=== PATIENT | male | born 1965 | race Caucasian/White ===

== ENCOUNTER 2017-11-05 08:02 | Emergency (ER) | payer SELFPAY ==
[~2017-11-05] VITALS: Ht 180.3 cm; Wt 94.0 kg
[2017-11-05 08:04] VITALS: Ht 180.3 cm; Wt 94.0 kg
[2017-11-05] MEDS ORDERED: HYDROmorphone INJ 2 MG/ML SYR/VIAL IM STA (08:28)
[2017-11-05] MEDS ORDERED: ONDANSETRON 4MG OD TAB PO STA (08:28)
[2017-11-05] MEDS ORDERED: KETOROLAC TROMETHAMINE 60 MG/2 ML VIAL IM STA (08:28)
[2017-11-05] MEDS ORDERED: DEXAMETHASONE INJ 10 MG in SYRINGE 0 ML IM STA (08:28)
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
--- NOTE | 2017-11-05 08:41 | EMERGENCY ROOM VISIT NOTE ---
ED Visit Note First contact with patient: 08:06 Resident Physician Supervision Note: I interviewed and examined the patient. Discussed with Dr. Martinez and agree with findings and plan as documented in the note. Documented By: Forrest Valenzuela Allergies Coded Allergies: No Known Allergies (Unverified , 04/25/15) Vital Signs Date Time Temp Pulse Resp B/P (MAP) Pulse Ox O2 Delivery O2 Flow Rate FiO2 11/05/17 08:04 36.9 87 18 151/93 97 Room Air Departure Information Referrals No Doctor, Assigned (PCP) Patient Instructions My [facility]
[2017-11-05] MEDS ORDERED: LIDODERM (LIDOCAINE) PATCH 5% TD SCH (09:00)
--- NOTE | 2017-11-05 09:04 | DIAGNOSTIC IMAGING REPORT ---
LUMBAR SPINE 5 VIEWS HISTORY: Pt c/o low back pain COMPARISON: None. FINDINGS: There is no fracture. No subluxation. Disc spaces are preserved. Tiny endplate osteophytes. Mild facet degenerative changes within the lower lumbar spine. IMPRESSION: No fracture or subluxation within the lumbar spine. Mild facet osteoarthritis within the lower lumbar spine. Electronically signed by: Tramaine Hunt M.D. 11/05/2017 9:03 AM Dictated Date/Time: 11/05/2017 9:02 AM
[2017-11-05] MEDS ORDERED: HYDROmorphone INJ 1 MG/ML SYR IV STA (09:28)
[2017-11-05] MEDS ORDERED: ACET-1256 PO (09:33)
[2017-11-05] MEDS ORDERED: HYDROmorphone INJ 1 MG/ML SYR IM STA (09:49)
[2017-11-05] MEDS ORDERED: OXYC-57 PO (10:30)
[2017-11-05 10:40] VITALS: BP 141/88; PULSE 87; TEMP 36.9; O2SAT 97
[2017-11-06] MEDS ORDERED: LIDODERM (LIDOCAINE) PATCH 5% TD SCH (09:00)
== END 2017-11-05 10:42 | disposition home or self-care (01) ==
LOC: C.EDB 08:04
DX: S39.012A Strain of muscle, fascia and tendon of lower back, initial encounter (principal); X50.1XXA Overexertion from prolonged static or awkward postures, initial encounter

== ENCOUNTER 2021-04-04 20:27 | Inpatient (IN) ==
[2021-04-04] MEDS ORDERED: FAMOTIDINE 20MG/5ML IV PUSH IV STA (21:01)
[2021-04-04] MEDS ORDERED: PANTOprazole 40 MG in SYRINGE 0 ML IV ONE (21:01)
[2021-04-04] MEDS ORDERED: SODIUM CHLORIDE 0.9% 1000ML 1,000 ML IV ONE (21:01)
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
[2021-04-04 21:32] LABS: Albumin Level 2.4 gm/dl (3.4-5.0); BUN Creatinine Ratio 11.5 (10-20); Calcium 8.4 mg/dl (8.5-10.1); Creatinine Clr Calc Pharmacy 80.1 ml/min; Est GFR (African American) 75.9 ml/min; Est GFR (Non-African American) 65.5 ml/min; Potassium 3.7 mmol/L (3.5-5.1)
[2021-04-04 21:39] LABS: Albumin Globulin Ratio 0.6 (0.9-2); Bilirubin,Total 0.2 mg/dl (0.2-1); C Reactive Protein 8.04 mg/dl (0-0.29); Globulin 4.1 gm/dl (2.5-4.0); Total Protein 6.5 gm/dl (6.4-8.2)
[2021-04-04 22:33] LABS: Appearance Urine Clear (Clear); Bilirubin Urine Negative (Negative); Blood Urine Negative (Negative); Color Urine Yellow; Glucose Urine UA Negative (Negative); Ketones Urine Negative (Negative); Leukocyte Esterase Urine Negative (Negative); Nitrite Urine Negative (Negative); Protein Urine Negative (Negative); Specific Gravity Urine 1.017 (1.000-1.030); Urobilinogen Urine Negative (Negative); pH Urine 5.5 (4.5-7.5)
[2021-04-04 22:37] LABS: Basophils # (auto) 0.04 K/uL (0-0.2); Basophils % (auto) 0.6 %; Eosinophils # (auto) 0.21 K/uL (0-0.5); Eosinophils % (auto) 3.1 %; Hematocrit (blood only) 24.4 % (42-52); Hemoglobin 7.4 g/dL (14.0-18.0); Immature Granulocytes # (auto) 0.03 K/uL (0.00-0.02); Immature Granulocytes % (auto) 0.4 %; Lymphocytes # (auto) 1.14 K/uL (1.2-3.4); Lymphocytes % (auto) 16.6 %; Mean Corpuscular Hemoglobin 23.9 pg (25-34); Mean Corpuscular Hgb Conc 30.3 g/dL (32-36); Mean Corpuscular Volume 78.7 fL (80-100); Mean Platelet Volume 9.3 fL (7.4-10.4); Monocytes # (auto) 0.56 K/uL (0.11-0.59); Monocytes % (auto) 8.2 %; Neutrophils # (auto) 4.89 K/uL (1.4-6.5); Neutrophils % (auto) 71.1 %; Platelet Count 634 K/uL (130-400); RDW Coefficient of Variation 15.6 % (11.5-14.5); RDW Standard Deviation 45.4 fL (36.4-46.3); White Blood Count 6.87 K/uL (4.8-10.8)
[2021-04-04] MEDS ORDERED: PIPERACILLIN/TAZOBACTAM 4.5 GM/120 ML BAG IV ONE (22:49)
[2021-04-04] MEDS ORDERED: PIPERACILL/TAZOBAC CONSULT ACTIVE PRN (22:49)
[2021-04-04 22:50] LABS: Reticulocytes # 0.06 10^6/uL (0.02-0.10)
[2021-04-04 22:56] LABS: Partial Thromboplastin Time 27.3 Seconds (21.0-31.0)
[2021-04-04 22:58] LABS: Hypochromasia Present; Polychromasia 1+
[2021-04-04] MEDS ORDERED: HYDROmorphone INJ 0.5 MG/0.5 ML SYR IV STA (23:35)
[2021-04-04] MEDS ORDERED: methylPREDNISolone 125 MG/2 ML VIAL IV STA (23:55)
[2021-04-05] MEDS ORDERED: ACETAMINOPHEN 325 MG TAB PO PRN (00:47)
[2021-04-05] MEDS ORDERED: NITROGLYCERIN SL 0.4 MG/TAB TAB SL PRN (00:47)
[2021-04-05] MEDS ORDERED: SODIUM CHLORIDE 0.9% 250 ML IV PRN (00:47)
[2021-04-05] MEDS ORDERED: HYDROmorphone INJ 0.5 MG/0.5 ML SYR IV PRN (00:47)
[2021-04-05] MEDS ORDERED: ONDANSETRON INJ 2 MG/ML 2 ML VIAL IV PRN (00:47)
[2021-04-05] MEDS ORDERED: PANTOprazole 40 MG in SYRINGE 0 ML IV ONE (01:15)
[2021-04-05] MEDS: PANTOprazole 40 MG in DEXTROSE 5% 100 ML IV SCH ×4 (01:25→14:13)
[2021-04-05] MEDS: SODIUM CHLORIDE 0.9% 1000ML 1,000 ML IV SCH ×2 (01:25→14:16)
--- NOTE | 2021-04-05 02:43 | History and Physical Report ---
DATE OF ADMISSION: 04/05/2021. CHIEF COMPLAINT: Left-sided headache and GI bleed. HISTORY OF PRESENT ILLNESS: A 55-year-old male with past medical history significant for celiac artery dissection, who presents with anemia, possible melena, and left-sided headache. The patient is having left temporal headache for the last 2 weeks, severe pain. He was in the ER on 03/29/2021. At that time, CT of the head was okay. He followed with the PCP on 04/02/2021. Labs were done, the ESR was highly elevated, but his hemoglobin was trending down. He was taking a lot of NSAIDs at home. His hemoglobin was 8.9 on 03/29/2021, today is 7.4. So PCP sent him to the hospital for GI bleed. His Hemoccult is positive. The patient says he had black stools a couple of days ago. He is currently constipated. He has some abdominal discomfort from constipation. No nausea. Somewhat nauseous the other day, but currently no nausea or vomiting. No chest pain. He is getting some shortness of breath on exertion. Still has severe left temporal headache about 9/10 in severity. Denies any blurred vision or vision problem. The pain is also radiating to his left jaw. He saw a dentist and examination was okay and he also saw emergent care for left earache and except for wax nothing was found. Appetite is down for the last few days. No dysphagia, no rash. Normal bladder movements. Currently resting comfortably and hemodynamically stable. ALLERGIES: No known drug allergies. PAST MEDICAL HISTORY: As mentioned above. PAST SURGICAL HISTORY: Removal of deep support implant. MEDICATIONS: Currently on Tylenol as needed. FAMILY HISTORY: Significant for no family history on file. SOCIAL HISTORY: Former smoker. REVIEW OF SYSTEMS: As per HPI. Rest of the review of systems is negative. PHYSICAL EXAMINATION: GENERAL: The patient is obese, not in acute distress. VITAL SIGNS: Temperature 36.5, pulse 96, respiratory rate 14, blood pressure 112/84, oxygen 97% on room air. HEENT: Pupils equal, round and reactive to light. Oral mucosa moist. NECK: No JVD. No neck masses. CARDIOVASCULAR: S1 and S2 heard. Regular rate and rhythm. No murmur, no gallop. RESPIRATORY SYSTEM: Normal AP diameter. No accessory muscle use. No wheezing, no crackles. ABDOMEN: Soft, bowel sounds present, nontender, no distention. CENTRAL NERVOUS SYSTEM: Cranial nerves II-XII grossly intact, nonfocal. EXTREMITIES: No edema, no erythema. LABORATORY DATA: WBC 6.8, hemoglobin 7.4, hematocrit 24.4, platelets 634. ESR 93. PT 10, INR 1, APTT 27.3. Sodium 139, potassium 3.7, chloride 106, bicarb 27, BUN 14, creatinine 1.24, serum glucose 112, calcium 8.4, total bilirubin 0.2, AST 26, ALT 26, alkaline phosphatase 103. C-reactive protein 8. Lipase 100. Urinalysis negative. SARS-CoV-2 PCR negative. IMAGING DATA: Chest x-ray, no acute findings. ASSESSMENT AND PLAN: This is a 55-year-old male who presents with gastrointestinal bleed. 1. Gastrointestinal bleed: Had melena a couple of days ago, hemoglobin 7.4. It was 8.7 on 03/29/2021. His hemoglobin was 8.5 on 04/02/2021. Taking a lot of NSAIDs because of the headache. Was started on Protonix drip. ER started on IV antibiotics, will continue, and IV fluids. Continue Protonix drip. Blood consent obtained by the ER. Will transfuse 2 units of PRBCs. Keep him n.p.o. and consult GI in the a.m. Monitor in the tele floor. H and H q. 6 hours. 2. Severe headache, left temporal headache: Tenderness on palpation and ESR is elevated at 93. Suspicion for giant cell arteritis. Will consult neurology in a.m. CT of the head done on 03/29/2021 was okay. No complaints of any vision problems. Will empirically give one dose of Solu-Medrol for suspicion for giant cell enteritis,as there is no obvious active bleeding at this time. So closely monitor in the tele floor as the patient is getting steroid. Further steroids as per neurology and after GI evaluation in the a.m. 3. Deep venous thrombosis prophylaxis: Sequential compression devices. DISPOSITION: Closely monitor in the tele floor. Level I full code. Expect to discharge home and follow with family doctor. Job ID: [id number] [facility] CENTERAnkita
[2021-04-05] MEDS ORDERED: FUROSEMIDE 40 MG/4 ML VIAL IV ONE (04:00)
[2021-04-05] MEDS: PIPERACILLIN/TAZOBACTAM 3.375 GM in DEXTROSE 5% 100 ML IV SCH ×2 (05:57→11:09)
--- NOTE | 2021-04-05 07:50 | XRay Report ---
SINGLE VIEW CHEST CLINICAL HISTORY: Dyspnea. FINDINGS: An AP, portable, upright chest radiograph is compared to study dated 03/29/2021. The heart i s top normal for projection. The lungs and pleural spaces are clear. No pneumothorax is seen. Chronic deformity is noted in the left-sided ribs. IMPRESSION: No active disease in the chest. ACT 112: Negative or not required by law. Electronically signed by: Riaz Arguelles M.D. 04/05/2021 7:48 AM
[2021-04-05 07:56] LABS: Basophils # (auto) 0.02 K/uL (0-0.2); Basophils % (auto) 0.3 %; Eosinophils # (auto) 0.01 K/uL (0-0.5); Eosinophils % (auto) 0.1 %; Hematocrit (blood only) 29.5 % (42-52); Hemoglobin 9.3 g/dL (14.0-18.0); Immature Granulocytes # (auto) 0.02 K/uL (0.00-0.02); Immature Granulocytes % (auto) 0.3 %; Lymphocytes # (auto) 0.69 K/uL (1.2-3.4); Lymphocytes % (auto) 10.1 %; Mean Corpuscular Hemoglobin 24.9 pg (25-34); Mean Corpuscular Hgb Conc 31.5 g/dL (32-36); Mean Corpuscular Volume 79.1 fL (80-100); Mean Platelet Volume 9.9 fL (7.4-10.4); Monocytes # (auto) 0.13 K/uL (0.11-0.59); Monocytes % (auto) 1.9 %; Neutrophils # (auto) 5.99 K/uL (1.4-6.5); Neutrophils % (auto) 87.3 %; Platelet Count 541 K/uL (130-400); RDW Coefficient of Variation 16.1 % (11.5-14.5); RDW Standard Deviation 46.4 fL (36.4-46.3); Red Blood Count 3.73 M/uL (4.7-6.1); White Blood Count 6.86 K/uL (4.8-10.8)
[2021-04-05 08:13] LABS: BUN Creatinine Ratio 11.9 (10-20); Creatinine Clr Calc Pharmacy 77.9 ml/min; Est GFR (African American) 74.5 ml/min; Est GFR (Non-African American) 64.2 ml/min; Magnesium 1.8 mg/dl (1.8-2.4)
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
[2021-04-05 11:04] LABS: Hematocrit (blood only) 30.1 % (42-52); Hemoglobin 9.5 g/dL (14.0-18.0)
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
[2021-04-05] MEDS ORDERED: PROPOFOL IV EMULSION 10 MG/ML 20 ML VIAL IV ONE (12:53)
[2021-04-05] MEDS ORDERED: LIDOCAINE 2% 2 ML VIAL/AMP(20MG/ML) INFIL ONE (12:53)
[2021-04-05] MEDS ORDERED: fentaNYL citrate 100 MCG/2 ML VIAL ONE (12:56)
[2021-04-05] MEDS ORDERED: ONDANSETRON INJ 2 MG/ML 2 ML VIAL ONE (13:20)
--- NOTE | 2021-04-05 13:40 | GI REPORT ---
Patient Name: Migel Chirinos Procedure Date: 04/05/2021 11:53 AM Date of : 1965 Admit Type: Inpatient Age: 55 Gender: Male Attending MD: Laron Herring MD Procedure: Upper GI endoscopy Providers: Laron Herring MD Referring MD: Jill Rose Md Indications: Unexplained iron deficiency anemia, Melena Medicines: Monitored Anesthesia Care Complications: No immediate complications. Estimated blood loss: None. Estimated Blood Loss: Estimated blood loss: none. Procedure: Pre-Anesthesia Assessment: - Prior Anticoagulants: The patient has taken no previous anticoagulant or antiplatelet agents. - Prior Aspirin/ NSAID therapy: The patient has taken previous NSAID medication, last dose was 1 day prior to procedure. - ASA Grade Assessment: III - A patient with severe systemic disease. After obtaining informed consent, the endoscope was passed under direct vision. Throughout the procedure, the patient's blood pressure, pulse, and oxygen saturations were monitored continuously. The Endoscope was introduced through the mouth, and advanced to the third part of duodenum. The upper GI endoscopy was accomplished without difficulty. The patient tolerated the procedure well. Findings: The examined esophagus was normal. Few non-bleeding cratered and linear gastric ulcers with no stigmata of bleeding were found in the stomach. Biopsies were taken with a cold forceps for Helicobacter pylori testing. Estimated blood loss: none. Diffuse moderate mucosal variance characterized by ulceration and oozing/active bleeding was found in the second portion of the duodenum and in the third portion of the duodenum. Area was successfully injected with 6 mL of a 1:10,000 solution of epinephrine for hemostasis. Coagulation for hemostasis using bipolar probe was successful. Biopsies were taken with a cold forceps for histology and to exclude malignancy. Estimated blood loss: none. Impression: - Normal esophagus. - Non-bleeding gastric ulcers with no stigmata of bleeding. Biopsied. - Mucosal variant in the duodenum. Injected. Treated with bipolar cautery. Biopsied. Recommendation: - [facility]. - Clear liquid diet today. if stable tomorrow can advance as tolerated -strict NSAID avoidance -obtain CT enterography to further evaluate small intestine for possible malignancy --trend H/H --strict alcohol cessation ---supportive care Laron Herring MD 04/05/2021 1:39:36 PM This report has been signed electronically. Note Initiated On: 04/05/2021 11:53 AM Number of Addenda: 0 I attest to the content of the Intraoperative Record and orders documented therein, exceptions below {[id number]}
--- NOTE | 2021-04-05 14:30 | Anesthesiology Progress Note ---
Date of Service April 05, 2021 Anesthesia Post Procedure Vital Signs Vital Signs: Temp Pulse Pulse Resp BP BP Pulse Ox 04/05/21 13:54 83 16 118/73 95 04/05/21 13:39 84 16 111/70 94 04/05/21 13:24 36.5 C 94 H 16 105/67 94 04/05/21 11:42 36.5 C 87 16 114/77 96 04/05/21 08:00 82 04/05/21 07:42 36.9 C 84 21 98/59 L 98 04/05/21 05:54 37.0 C 88 16 114/68 96 04/05/21 05:05 36.9 C 82 20 119/69 95 04/05/21 04:35 37 C 85 16 120/76 95 04/05/21 04:20 36.9 C 86 20 109/77 96 04/05/21 04:15 36.9 C 86 20 109/67 95 04/05/21 04:00 36.9 C 88 20 115/76 97 04/05/21 03:40 36.9 C 93 H 14 107/79 96 04/05/21 03:04 37.0 C 91 H 18 107/75 94 04/05/21 02:34 37.0 C 90 18 110/73 94 04/05/21 02:19 37.1 C 92 H 18 115/68 94 04/05/21 01:58 37 C 92 H 20 108/72 98 04/05/21 00:51 37.2 C 91 H 18 124/69 96 04/05/21 00:00 96 H 14 112/84 97 04/04/21 23:30 98 H 26 H 122/84 98 04/04/21 23:00 97 H 25 H 133/86 98 04/04/21 22:30 98 H 28 H 125/78 97 04/04/21 22:00 104 H 18 119/83 95 04/04/21 21:30 105 H 23 125/81 97 04/04/21 21:00 109 H 25 H 141/84 H 100 04/04/21 20:50 112 H 19 153/86 H 96 04/04/21 20:33 36.5 C 115 H 18 133/83 99 Transfer of Care Handoff Completed per policy Notes Mental Status: alert / awake / arousable and participated in evaluation Nausea / Vomiting: adequately controlled Pain: adequately controlled Airway Patency, RR, SpO2: stable & adequate BP & HR: stable & adequate Hydration State: stable & adequate Anesthetic Complications: no major complications apparent and Pt Satisfied with anesthetic care
--- NOTE | 2021-04-05 16:24 | Hospitalist Progress Note ---
Date of Service April 05, 2021 Assessment & Plan (1) Headache: Plan: Left temporal headache with temporal tenderness. Elevated ESR at 93. Concern for possible temporal arteritis. Patient got 1 dose of Solu-Medrol on admission. Neurologist recommendations appreciated. Surgery consult for temporal artery biopsy ordered. (2) Acute upper gastrointestinal bleeding: Plan: Acute blood loss anemia due to upper GI bleeding. Patient hemoglobin trended down over time. On presentation hemoglobin was 7.4. Received 2 units of blood. Hemoglobin this morning is 9.5. GI evaluation noted. Patient had EGD which revealed Few nonbleeding cratered and linear gastric ulcers with no stigmata of bleeding in the stomach, diffuse moderate mucosal variance characterized by ulceration and oozing/active bleeding in the second portion of the duodenum and third portion of the duodenum status post epi injection and coagulation with bipolar probe. Biopsies taken. GI recommends getting CT enterography to rule out small bowel malignancy. Patient advised to strictly avoid NSAIDs and alcohol PPI drip changed to IV PPI twice daily for now. Monitor hemoglobin On clears for today. Was started for antibiotics in ER. I have no concern for infection at this point based on history exam and findings. 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 Being managed for acute blood loss anemia due to GI bleeding, headache [rule out temporal arthritis] Got 2 units of blood this admission Patient seen and examined this afternoon Patient reports improvement in the headache, reports pain on palpation Denies any nausea, vomiting, abdominal pain. Has not had bowel movement yet. Denies any dizziness, fatigue, palpitation Denies any cough, chest pain, shortness of breath Review of Systems Review of Systems: Other review of systems negative except as detailed above Physical Exam Constitutional: + well hydrated and + obese; no acute distress Eyes: PERRL, conjunctivae normal, anicteric sclerae ENMT: external ear and nose normal, oropharynx normal Respiratory: normal respiratory effort, lungs clear to auscultation Cardiovascular: RRR, no murmur, no edema Gastrointestinal (Abdomen): normal bowel sounds, soft, nontender, no hepatosplenomegaly Musculoskeletal: no cyanosis or clubbing, extremities motor strength 5/5 Neurologic: PERRL, EOMI, accommodation nl, no face palsy, no dysarthria Tenderness over left temporal region Psychiatric: A+Ox3, euthymic affect Results & Data Results & Data ([facility]) Vital Signs (Past 12 Hours) Vital Signs Temp Pulse Pulse Resp BP BP Pulse Ox 04/05/21 13:54 83 16 118/73 95 04/05/21 13:39 84 16 111/70 94 04/05/21 13:24 36.5 C 94 H 16 105/67 94 04/05/21 11:42 36.5 C 87 16 114/77 96 04/05/21 08:00 82 04/05/21 07:42 36.9 C 84 21 98/59 L 98 04/05/21 05:54 37.0 C 88 16 114/68 96 04/05/21 05:05 36.9 C 82 20 119/69 95 04/05/21 04:35 37 C 85 16 120/76 95 04/05/21 04:20 36.9 C 86 20 109/77 96 04/05/21 04:15 36.9 C 86 20 109/67 95 Laboratory Results Abnormal lab results 04/04/21 04/04/21 04/04/21 Range/Units 20:51 20:51 20:51 RBC (4.7-6.1) M/uL Hgb (14.0-18.0) g/dL Hct (42-52) % MCV (80-100) fL MCH (25-34) pg MCHC (32-36) g/dL RDW Std Deviation (36.4-46.3) fL RDW Coeff of Tavo (11.5-14.5) % Plt Count (130-400) K/uL Lymph # (Auto) (1.2-3.4) K/uL Immature Gran # (Auto) (0.00-0.02) K/uL ESR 93 H (0-20) mm/hr Chloride (98-107) mmol/L Glucose 112 H (70-99) mg/dl Calcium 8.4 L (8.5-10.1) mg/dl C-Reactive Protein 8.04 H (0-0.29) mg/dl Albumin 2.4 L (3.4-5.0) gm/dl Globulin 4.1 H (2.5-4.0) gm/dl Albumin/Globulin Ratio 0.6 L (0.9-2) Crossmatch See Detail 04/04/21 04/05/21 04/05/21 Range/Units 22:27 07:29 07:29 RBC 3.10 L 3.73 L (4.7-6.1) M/uL Hgb 7.4 L 9.3 L (14.0-18.0) g/dL Hct 24.4 L 29.5 L (42-52) % MCV 78.7 L 79.1 L (80-100) fL MCH 23.9 L 24.9 L (25-34) pg MCHC 30.3 L 31.5 L (32-36) g/dL RDW Std Deviation 46.4 H (36.4-46.3) fL RDW Coeff of Tavo 15.6 H 16.1 H (11.5-14.5) % Plt Count 634 H 541 H (130-400) K/uL Lymph # (Auto) 1.14 L 0.69 L (1.2-3.4) K/uL Immature Gran # (Auto) 0.03 H (0.00-0.02) K/uL ESR (0-20) mm/hr Chloride 109 H (98-107) mmol/L Glucose 152 H (70-99) mg/dl Calcium 8.0 L (8.5-10.1) mg/dl C-Reactive Protein (0-0.29) mg/dl Albumin (3.4-5.0) gm/dl Globulin (2.5-4.0) gm/dl Albumin/Globulin Ratio (0.9-2) Crossmatch 04/05/21 Range/Units 10:54 RBC (4.7-6.1) M/uL Hgb 9.5 L (14.0-18.0) g/dL Hct 30.1 L (42-52) % MCV (80-100) fL MCH (25-34) pg MCHC (32-36) g/dL RDW Std Deviation (36.4-46.3) fL RDW Coeff of Tavo (11.5-14.5) % Plt Count (130-400) K/uL Lymph # (Auto) (1.2-3.4) K/uL Immature Gran # (Auto) (0.00-0.02) K/uL ESR (0-20) mm/hr Chloride (98-107) mmol/L Glucose (70-99) mg/dl Calcium (8.5-10.1) mg/dl C-Reactive Protein (0-0.29) mg/dl Albumin (3.4-5.0) gm/dl Globulin (2.5-4.0) gm/dl Albumin/Globulin Ratio (0.9-2) Crossmatch (1) Headache Headache chronicity pattern: unspecified pattern Headache type: unspecified Intractability: not intractable Qualified Code(s): R51.9 - Headache, unspecified
[2021-04-05 17:03] LABS: Hemoglobin 9.2 g/dL (14.0-18.0)
--- NOTE | 2021-04-05 17:17 | CT Scan Report ---
CT enterography CLINICAL HISTORY: Possible small bowel malignancy. COMPARISON STUDY: No previous studies for comparison. TECHNIQUE: The patient ingested the Volumen. Axial images of the abdomen and pelvis were obtained fol lowing intravenous injection of 93 cc Optiray 320 IV. Automated exposure control was utilized for the study. A dose lowering technique was utilized adhering to the principles of ALARA. FINDINGS: Lung bases are unremarkable. No pneumatosis, free air or portal venous gas is present. Ther e is no biliary or pancreatic ductal dilatation or note is made of an indeterminate 3 cm lesion withi n the caudate lobe of the liver. There may be embolization coils within the splenic artery. The splee n is lobulated. There is no peripancreatic infiltration. The adrenal glands and these are unremarkabl e. There is no hydronephrosis. Major vasculature is patent. There is no evidence for a bowel obstruct ion. There is sigmoid diverticulosis without evidence for acute diverticulitis. Note is made of mesen teric and omental infiltration. There are multiple small peritoneal and omental nodules that measure up to 1.6 cm. There are multiple enlarged ileocolic lymph nodes. The largest node measures 4.9 x 3.3 cm. Several nodes may be necrotic. There are clustered, tethered small bowel loops within the right m id abdomen with associated mesenteric edema and a small amount of ascites. A loop of small bowel demo nstrates significant bowel wall thickening and is mildly dilated. There may be wall thickening of an additional small bowel loop within the left mid abdomen. No suspicious lesions are identified within the visualized skeletal structures. The appendix is unremarkable. IMPRESSION: 1. Multiple pathologically enlarged ileocolic lymph nodes with associated clustered, tethered right a bdominal small bowel loops with significant wall thickening of a mildly dilated small bowel loop sugg estive of aneurysmal dilatation. 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 Metastatic disease and carcinoid are within the differential but considered less likely . 2. Mesenteric and omental infiltration with multiple small nodules. This favors peritoneal disease. 3. No bowel obstruction. 4. Indeterminate 3 cm lesion within the caudate lobe of the liver. 5. Cholelithiasis. ACT 112: Negative or not required by law. Electronically signed by: Juan Mckinney M.D. 04/05/2021 5:15 PM
[2021-04-05] MEDS ORDERED: OPTIRAY 320 100ml IV ONE (17:25)
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
[2021-04-05] MEDS: PANTOprazole 40 MG in SYRINGE 0 ML IV SCH (20:30)
[2021-04-05 23:50] LABS: Hematocrit (blood only) 26.7 % (42-52); Hemoglobin 8.5 g/dL (14.0-18.0)
[2021-04-06 05:27] LABS: Hematocrit (blood only) 26.2 % (42-52); Hemoglobin 8.3 g/dL (14.0-18.0); Mean Corpuscular Hemoglobin 24.8 pg (25-34); Mean Corpuscular Hgb Conc 31.7 g/dL (32-36); Mean Corpuscular Volume 78.2 fL (80-100); Nucleated RBC # (auto) 0.02 K/uL (0-0); Nucleated RBC % (auto) 0.2 %; Platelet Count 563 K/uL (130-400); RDW Coefficient of Variation 15.8 % (11.5-14.5); RDW Standard Deviation 45.7 fL (36.4-46.3); Red Blood Count 3.35 M/uL (4.7-6.1); White Blood Count 9.36 K/uL (4.8-10.8)
[2021-04-06 05:48] LABS: BUN Creatinine Ratio 11.2 (10-20); Calcium 7.7 mg/dl (8.5-10.1); Creatinine Clr Calc Pharmacy 91.8 ml/min; Est GFR (African American) 90.7 ml/min; Est GFR (Non-African American) 78.3 ml/min; Potassium 3.8 mmol/L (3.5-5.1)
[2021-04-06] MEDS: PANTOprazole 40 MG in SYRINGE 0 ML IV SCH ×2 (08:22→20:12)
[2021-04-06] MEDS ORDERED: THIAMINE HCL 100 MG TAB PO SCH (09:00)
[2021-04-06] MEDS ORDERED: FOLIC ACID 1 MG in SYRINGE 9.8 ML IV SCH (09:00)
[2021-04-06] MEDS ORDERED: LORazepam 3 MG/6 ML VIAL IV PRN (12:50)
[2021-04-06] MEDS ORDERED: LORazepam 1 MG TAB PO PRN (12:50)
[2021-04-06] MEDS ORDERED: LORazepam 1 MG/2 ML VIAL IV PRN ×2 (12:50)
[2021-04-06] MEDS ORDERED: ATIVAN IV ALCOHOL WITHDRAWL IV PRN (12:50)
[2021-04-06] MEDS ORDERED: LORazepam 2 MG/4 ML VIAL IV PRN (12:50)
--- NOTE | 2021-04-06 12:50 | Hospitalist Progress Note ---
Date of Service April 06, 2021 Assessment & Plan (1) Acute upper gastrointestinal bleeding: Plan: Acute blood loss anemia due to upper GI bleeding. Patient hemoglobin trended down over time. On presentation hemoglobin was 7.4. Received 2 units of blood. Hemoglobin yesterday after transfusion 9.5. GI evaluation noted. Patient had EGD which revealed Few nonbleeding cratered and linear gastric ulcers with no stigmata of bleeding in the stomach, diffuse moderate mucosal variance characterized by ulceration and oozing/active bleeding in the second portion of the duodenum and third portion of the duodenum status post epi injection and coagulation with bipolar probe. Biopsies taken. CT enterography showed multiple enlarged ileocolic lymph node associated with clustered tattered right abdominal small bowel loops suggestive of small bowel lymphoma. Also had mesenteric and omental infiltration with multiple small nodules as well as an indeterminate 3 cm lesion in the liver. Patient's Hb trending down to 8.3 this morning. Concern for continuing bleeding considering loss of more than 1 g in 24 hours. Continue to monitor hemoglobin. Discussed the patient extensively with the freight car repairer. In view of possibly continuing bleed and new findings of possible malignancy, transfer to a tertiary center with interventional radiology comfortability is recommended. I spent over 40 minutes discussing patient's findings, diagnosis and recommended care and management. Patient stated that he would like to be transferred to [facility]. Patient also reports significant family history of malignancy with mother breast cancer, two aunts had lung cancer and one had liver cancer. Also reported malignancy in one of the grandfather and grandmother but does not know type of cancer they had. He also has significant history of chewing tobacco for over 30- 40 years and drinks 5-6 beers per day Continue clears for now I called [facility] transfer center and awaiting callback for transfer (2) Headache: Plan: Left temporal headache with temporal tenderness. Elevated ESR at 93. There was initial concern for possible temporal arteritis. Patient got 1 dose of Solu-Medrol on admission. Neurologist recommendations appreciated. 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 Being managed for acute blood loss anemia due to GI bleeding. Patient had 2 units of blood on admission. Hemoglobin was 7.4 on admission improved to 9.5 yesterday morning after transfusions. EGD done yesterday showed few nonbleeding gastric ulcers without stigmata of bleeding, diffuse moderate mucosal variance characterized by ulceration and oozing with active bleeding in the second and third part of the duodenum which were injected with epinephrine and coagulation done for hemostasis. Biopsies were also taken. CT enterography showed multiple enlarged ileocolic lymph node associated with clustered tattered right abdominal small bowel loops suggestive of small bowel lymphoma. Also had mesenteric and omental infiltration with multiple small nodules as well as an indeterminate 3 cm lesion in the liver. Patient seen and examined this morning. Patient denies any complaints reports feeling better and stronger than he was on admission. Reports headache is completely resolved. Reported a bowel movement this morning that he reported was brown. Denies any abdominal pain, nausea or vomiting. No dizziness, fatigue, palpitations dyspnea. Review of Systems Review of Systems: Other review of systems negative except as detailed above Physical Exam Constitutional: + well hydrated and + obese; no acute distress Eyes: PERRL, conjunctivae normal, anicteric sclerae ENMT: external ear and nose normal, oropharynx normal Respiratory: normal respiratory effort, lungs clear to auscultation Cardiovascular: RRR, no murmur, no edema Gastrointestinal (Abdomen): normal bowel sounds, soft, nontender, no hepatosplenomegaly Abdominal wall surgical scar Musculoskeletal: no cyanosis or clubbing, extremities motor strength 5/5 Neurologic: PERRL, EOMI, accommodation nl, no face palsy, no dysarthria Psychiatric: A+Ox3, euthymic affect Results & Data Results & Data ([facility]) Vital Signs (Past 12 Hours) Vital Signs Temp Pulse Resp BP Pulse Ox 04/06/21 11:41 37.1 C 87 24 132/86 97 04/06/21 07:41 71 18 100/67 97 04/06/21 04:29 36.6 C 82 18 98/56 L 93 Laboratory Results Abnormal lab results 04/05/21 04/05/21 04/06/21 Range/Units 16:51 23:20 05:18 RBC 3.35 L (4.7-6.1) M/uL Hgb 9.2 L 8.5 L 8.3 L (14.0-18.0) g/dL Hct 29.0 L 26.7 L 26.2 L (42-52) % MCV 78.2 L (80-100) fL MCH 24.8 L (25-34) pg MCHC 31.7 L (32-36) g/dL RDW Coeff of Tavo 15.8 H (11.5-14.5) % Plt Count 563 H (130-400) K/uL Absolute Nucleated RBC 0.02 H (0-0) K/uL Chloride (98-107) mmol/L Glucose (70-99) mg/dl Calcium (8.5-10.1) mg/dl 04/06/21 Range/Units 05:18 RBC (4.7-6.1) M/uL Hgb (14.0-18.0) g/dL Hct (42-52) % MCV (80-100) fL MCH (25-34) pg MCHC (32-36) g/dL RDW Coeff of Tavo (11.5-14.5) % Plt Count (130-400) K/uL Absolute Nucleated RBC (0-0) K/uL Chloride 114 H (98-107) mmol/L Glucose 101 H (70-99) mg/dl Calcium 7.7 L (8.5-10.1) mg/dl (1) Headache Headache chronicity pattern: unspecified pattern Headache type: unspecified Intractability: not intractable Qualified Code(s): R51.9 - Headache, unspecified
--- NOTE | 2021-04-06 17:04 | Gastroenterology Progress Note ---
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 it appears he is still bleeding slowly as hgb is still dropping slowly. I discussed this with the patient and the CT findings and he is agreeable to transfer at this time for higher level of care and possible IR embolization for GI bleed as well as biopsy of a LN. Recs: --transfer to [place] or other tertiary care center when bed available --supportive care, trend H/H, transfuse prn --continue PPI BID --f/u path results from biopsy --rest as per primary team Admission and Anticipated Discharge Date Admission Date: April 04, 2021 Subjective no events overnight, denies any further bleeding, says he feels well. tolerating clear liquid diet. EGD hemostasis of bleeding mucosa in the duodenum yesterday. CT enterography shows findings very concerning for small bowel malignancy possible lymphoma. his hgb is dropping slowly still. labs reviewed. vss. Review of Systems Constitutional: no fever and no chills Respiratory: no cough, no dyspnea and no dyspnea on exertion Cardiovascular: no chest pain and no dyspnea Gastrointestinal: as per Subjective / HPI Psychiatric: no depression and no anxiety Physical Exam Constitutional: WD/WN, vitals as above Respiratory: normal respiratory effort, lungs clear to auscultation Cardiovascular: RRR, no murmur, no edema Gastrointestinal (Abdomen): normal bowel sounds, soft, nontender, no hepatosplenomegaly Musculoskeletal: no lower extremity edema Psychiatric: A+Ox3, euthymic affect Results & Data Results & Data ([facility]) Vital Signs (Past 12 Hours) Vital Signs Temp Pulse Resp BP Pulse Ox 04/06/21 15:20 96 H 13 128/93 100 04/06/21 11:41 37.1 C 87 24 132/86 97 04/06/21 07:41 71 18 100/67 97 PG Care Time/CCT Total # of Minutes Spent Total Time Spent with Patient: Total time spent is greater than 50% in coordination of care (as documented) at patient's floor/unit and/or counseling patient: Coding Level of Care Code 39716 Subseq Hosp Care Lvl 3 Diagnoses Acute upper gastrointestinal bleeding K92.2 Small bowel cancer C17.9
[2021-04-06 17:11] LABS: Hematocrit (blood only) 31.5 % (42-52); Hemoglobin 9.8 g/dL (14.0-18.0); Mean Corpuscular Hemoglobin 25.3 pg (25-34); Mean Corpuscular Hgb Conc 31.1 g/dL (32-36); Mean Corpuscular Volume 81.4 fL (80-100); Mean Platelet Volume 9.1 fL (7.4-10.4); Platelet Count 621 K/uL (130-400); RDW Coefficient of Variation 16.3 % (11.5-14.5); RDW Standard Deviation 48.5 fL (36.4-46.3); Red Blood Count 3.87 M/uL (4.7-6.1); White Blood Count 8.88 K/uL (4.8-10.8)
--- NOTE | 2021-04-06 17:33 | Discharge Summary ---
Date of Service April 06, 2021 Admission HPI Per Admitting Provider 55-year-old male with past medical history significant for celiac artery dissection, who presents with anemia, possible melena, and left-sided headache. The patient is having left temporal headache for the last 2 weeks, severe pain. He was in the ER on 03/29/2021. At that time, CT of the head was okay. He followed with the PCP on 04/02/2021. Labs were done, the ESR was highly elevated, but his hemoglobin was trending down. He was taking a lot of NSAIDs at home. His hemoglobin was 8.9 on 03/29/2021, today is 7.4. So PCP sent him to the hospital for GI bleed. His Hemoccult is positive. The patient says he had black stools a couple of days ago. He is currently constipated. He has some abdominal discomfort from constipation. No nausea. Somewhat nauseous the other day, but currently no nausea or vomiting. No chest pain. He is getting some shortness of breath on exertion. Still has severe left temporal headache about 9/10 in severity. Denies any blurred vision or vision problem. The pain is also radiating to his left jaw. He saw a dentist and examination was okay and he also saw emergent care for left earache and except for wax nothing was found. Appetite is down for the last few days. No dysphagia, no rash. Normal bladder movements. Currently resting comfortably and hemodynamically stable. Admission Exam Per Admitting Provider GENERAL: The patient is obese, not in acute distress. VITAL SIGNS: Temperature 36.5, pulse 96, respiratory rate 14, blood pressure 112/84, oxygen 97% on room air. HEENT: Pupils equal, round and reactive to light. Oral mucosa moist. NECK: No JVD. No neck masses. CARDIOVASCULAR: S1 and S2 heard. Regular rate and rhythm. No murmur, no gallop. RESPIRATORY SYSTEM: Normal AP diameter. No accessory muscle use. No wheezing, no crackles. ABDOMEN: Soft, bowel sounds present, nontender, no distention. CENTRAL NERVOUS SYSTEM: Cranial nerves II-XII grossly intact, nonfocal. EXTREMITIES: No edema, no erythema. Principal Diagnosis Acute blood loss anemia Upper GI bleed Small bowel cancer Discharge Exam Constitutional + well hydrated and + obese; no acute distress Eyes PERRL, conjunctivae normal, anicteric sclerae ENMT external ear and nose normal, oropharynx normal Respiratory normal respiratory effort, lungs clear to auscultation Cardiovascular RRR, no murmur, no edema Gastrointestinal (Abdomen) normal bowel sounds, soft, nontender, no hepatosplenomegaly Musculoskeletal no cyanosis or clubbing, extremities motor strength 5/5 Neurologic PERRL, EOMI, accommodation nl, no face palsy, no dysarthria Psychiatric A+Ox3, euthymic affect Discharge Data Allergies Allergy/AdvReac Type Severity Reaction Status Date / Time No Known Allergies Allergy Verified 04/04/21 21:34 Consultations 04/04/21 22:52 ED Decision to Admit Stat 04/05/21 08:00 Consult Neurology Routine 04/05/21 09:23 Consult Gastroenterology Routine 04/05/21 15:31 Consult General Surgery Routine 04/06/21 17:32 Burn CD for patient Stat Procedures Performed Operation Date: 04/05/21 16:45 Actual Procedures p EGD Hemostasis - Laron Herring MD s EGD Biopsy Cytology - MD gaye Iverson Injection Therapy / Sclerotherapy - Laron Herring MD The examined esophagus was normal. Few non-bleeding cratered and linear gastric ulcers with no stigmata of bleeding were found in the stomach. Biopsies were taken with a cold forceps for Helicobacter pylori testing. Estimated blood loss: none. Diffuse moderate mucosal variance characterized by ulceration and oozing/active bleeding was found in the second portion of the duodenum and in the third portion of the duodenum. Area was successfully injected with 6 mL of a 1:10,000 solution of epinephrine for hemostasis. Coagulation for hemostasis using bipolar probe was successful. Biopsies were taken with a cold forceps for histology and to exclude malignancy. Estimated blood loss: none. Impression: - Normal esophagus. - Non-bleeding gastric ulcers with no stigmata of bleeding. Biopsied. - Mucosal variant in the duodenum. Injected. Treated with bipolar cautery. Biopsied. Recommendation: - [facility]. - Clear liquid diet today. if stable tomorrow can advance as tolerated -strict NSAID avoidance -obtain CT enterography to further evaluate small intestine for possible malignancy --trend H/H --strict alcohol cessation ---supportive care Ordered Studies 04/05/21 15:16 CT enterography Urgent Lung bases are unremarkable. No pneumatosis, free air or portal venous gas is present. There is no biliary or pancreatic ductal dilatation or note is made of an indeterminate 3 cm lesion within the caudate lobe of the liver. There may be embolization coils within the splenic artery. The spleen is lobulated. There is no peripancreatic infiltration. The adrenal glands and these are unremarkable. There is no hydronephrosis. Major vasculature is patent. There is no evidence for a bowel obstruction. There is sigmoid diverticulosis without evidence for acute diverticulitis. Note is made of mesenteric and omental infiltration. There are multiple small peritoneal and omental nodules that measure up to 1.6 cm. There are multiple enlarged ileocolic lymph nodes. The largest node measures 4.9 x 3.3 cm. Several nodes may be necrotic. There are clustered, tethered small bowel loops within the right mid abdomen with associated mesenteric edema and a small amount of ascites. A loop of small bowel demonstrates significant bowel wall thickening and is mildly dilated. There may be wall thickening of an additional small bowel loop within the left mid abdomen. No suspicious lesions are identified within the visualized skeletal structures. The appendix is unremarkable. IMPRESSION: 1. Multiple pathologically enlarged ileocolic lymph nodes with associated clustered, tethered right abdominal small bowel loops with significant wall thickening of a mildly dilated small bowel loop suggestive of aneurysmal dilatation. Although nonspecific, the findings are highly suggestive of small bowel lymphoma. Metastatic disease and carcinoid are within the differential but considered less likely. 2. Mesenteric and omental infiltration with multiple small nodules. This favors peritoneal disease. 3. No bowel obstruction. 4. Indeterminate 3 cm lesion within the caudate lobe of the liver. 5. Cholelithiasis. Hospital Course (1) Acute upper gastrointestinal bleeding: Acute blood loss anemia due to upper GI bleeding. Patient hemoglobin trended down over time. On presentation hemoglobin was 7.4. Received 2 units of blood. Hemoglobin yesterday after transfusion 9.5. GI evaluation noted. Patient had EGD which revealed Few nonbleeding cratered and linear gastric ulcers with no stigmata of bleeding in the stomach, diffuse moderate mucosal variance characterized by ulceration and oozing/active bleeding in the second portion of the duodenum and third portion of the duodenum status post epi injection and coagulation with bipolar probe. Biopsies taken. CT enterography showed multiple enlarged ileocolic lymph node associated with clustered tattered right abdominal small bowel loops suggestive of small bowel lymphoma. Also had mesenteric and omental infiltration with multiple small nodules as well as an indeterminate 3 cm lesion in the liver. Patient's Hb trending down to 8.3 this morning. Concern for continuing bleeding considering loss of more than 1 g in 24 hours. Continue to monitor hemoglobin. Discussed the patient extensively with the orthopaedic technologist. In view of possibly continuing bleed and new findings of possible malignancy, transfer to a tertiary center with interventional radiology comfortability is recommended. I spent over 40 minutes discussing patient's findings, diagnosis and recommended care and management. Patient stated that he would like to be transferred to [facility]. Patient also reports significant family history of malignancy with mother breast cancer, two aunts had lung cancer and one had liver cancer. Also reported malignancy in one of the grandfather and grandmother but does not know type of cancer they had. He also has significant history of chewing tobacco for over 30- 40 years and drinks 5-6 beers per day Continue clears for now I called [facility] transfer center for transfer Patient accepted for transfer to [facility] Will need IR Evaluation there (2) Headache: Left temporal headache with temporal tenderness. Elevated ESR at 93. There was initial concern for possible temporal arteritis. Patient got 1 dose of Solu-Medrol on admission. Neurologist recommendations appreciated. Headache completely resolved Total Time Total Time Spent Total Time Spent (In Minutes): 50 Total Time Includes: Examination of the Patient, Discharge Planning, Medication Reconciliation, Communication With Other Providers and Other Discharge Plan Discharge Items Patient Disposition: Transfer Acute Care Hospital Reason For Visit: GI BLEED Discharge Diagnosis: Acute blood loss anemia Upper GI bleed Small bowel cancer Activity: As commented below Non-emergency contact: Primary Care Provider, Oracle Architect and Oncologist Call non-emergency contact if: you have any medication questions and your symptoms worsen Follow-up/Referrals: Nolberto Nuno MD [Primary Care Provider] - Diet: Heart Healthy Addtl Attending Provider Instructions: Mr Chirinos You presented to the hospital with headache and worsening anemia. You required 2 units of blood Endoscopy (EGD) showed bleeding in your small bowel. CT scan is concerning for new tumors/malignancy. Your blood level (hemoglobin) continued to drop. You are being transferred to [facility] for further evaluation by Interventional radiologist. Please follow up the plans over there and you will need follow up with Oncologist as well as we discussed. It was a pleasure taking care of you. Pending Studies at Discharge: Yes Stand-Alone Forms: My [facility] Skilled Items Patient informed of condition?: Yes DNR: No Discharge Level of Care: Other Communicable Disease: No Discharge Prognosis: Stable Lines: Peripheral IV Urinary Catheter: No Medications and DC Order Prescriptions: Discontinued acetaminophen [Tylenol Extra Strength] 500 mg Tablet 1,000 mg PO Q6H PRN (Reason: Pain) RF: 0 ibuprofen 200 mg Tablet 400 mg PO Q6H PRN (Reason: Fever Or Pain) RF: 0 Discharge Orders: Discharge Order (Routine); Ordered 04/06/21 Ordered By: Jill Rose Admission Data Admit Date/Time: 04/04/21 23:34 Attending Provider: Jill Rose I. Admit Provider: Travis Moreau Primary Care Provider: Nolberto Nuno Other Providers: Travis Moreau ; Laron Herring ; Han Wilson ; Elvis Gallegos Other Interventions: Discharge Summary Assessment (RN) Last Done: 04/06/21 17:53
== END 2021-04-07 02:30 | disposition short-term general hospital (02) | DRG 841 ==
LOC: ED 20:27 → 1E 23:34

== ENCOUNTER 2022-02-17 12:54 | Inpatient (IN) ==
[2022-02-17] MEDS ORDERED: SODIUM CHLORIDE 0.9% 1000ML 1,000 ML IV SCH ×2 (13:29→18:21)
--- NOTE | 2022-02-17 14:09 | XRay Report ---
XR chest 1V portable CLINICAL HISTORY: Chest Pain. COMPARISON STUDY: 04/04/2021 TECHNIQUE: 1 view of the chest FINDINGS: Single frontal view of the chest demonstrates the cardiomediastinal silhouette to be within normal li mits. A Port-A-Cath is in place. There is a decreased inspiratory effort with elevation of the hemidi aphragms and crowding of the bronchovascular markings at the lung bases and centrally. The lungs are clear of alveolar opacities. There is no evidence for pleural effusion. There is no evidence for vasc ular congestion. There is no acute osseous pathology. IMPRESSION: 1. There is a decreased inspiratory effort with otherwise no acute chest disease. Interval placement of a port catheter from the right ACT 112: Negative or not required by law. Electronically signed by: John Ashton M.D. 02/17/2022 2:07 PM
[2022-02-17 14:45] LABS: Base Excess VBG 2.1 mEq/L; HCO3 VBG 26 mmol/L; Oxygen Saturation VBG 63.9 %; PCO2 VBG 35 mmHg (38-50); PO2 VBG 40 mmHg; pH VBG 7.47 (7.36-7.41)
[2022-02-17 14:53] LABS: Hematocrit (blood only) 30.7 % (40.1-51.0); Hemoglobin 10.1 g/dl (14.0-18.0); Mean Corpuscular Hemoglobin 31.6 pg (25.0-34.0); Mean Corpuscular Hgb Conc 32.9 g/dL (32.0-36.0); Mean Corpuscular Volume 95.9 fL (80.0-100.0); Mean Platelet Volume 11.5 fL (9.4-12.4); Nucleated RBC # (auto) 0.55 K/uL (0-0); Nucleated RBC % (auto) 9.2 %; Platelet Count 43 K/uL (130-400); RDW Standard Deviation 76.9 fL (36.4-46.3); White Blood Count 5.96 K/ul (4.8-10.8)
[2022-02-17 15:05] LABS: Albumin Globulin Ratio 1.7 (0.9-2); Albumin Level 3.8 gm/dl (3.4-5.0); BUN Creatinine Ratio 31.4 (10-20); Bilirubin,Total 0.5 mg/dl (0.2-1.0); Calcium 8.5 mg/dl (8.5-10.1); Creatinine Clr Calc Pharmacy 115.4 ml/min; Est GFR (African American) 123.1 ml/min; Est GFR (Non-African American) 106.2 ml/min; Globulin 2.2 gm/dl (2.5-4.0); Magnesium 2.1 mg/dl (1.7-2.4); Phosphorus 3.5 mg/dl (2.5-4.9); Potassium 4.4 mmol/L (3.5-5.1)
[2022-02-17 15:11] LABS: Troponin I High Sensitivity 15.9 pg/ml (0-20)
[2022-02-17 15:28] LABS: ALC (manual) 0.77 K/uL (1.2-3.4); Lymphocytes # (manual) 0.77 K/uL (1.2-3.4); Lymphocytes % (manual) 13 %; Metamyelocytes # (manual) 0.95 K/uL (0-0); Metamyelocytes % (manual) 16 %; Monocytes # (manual) 0.36 K/uL (0.24-0.82); Monocytes % (manual) 6 %; Myelocytes # (manual) 0.77 K/uL (0-0); Myelocytes % (manual) 13 %; Neutrophils % (manual) 52 %; Ovalocytes 1+; Polychromasia 1+; Schistocytes 1+; Tear Drop Cells 2+
[2022-02-17] MEDS ORDERED: OPTIRAY 320 100ml IV ONE (15:52)
--- NOTE | 2022-02-17 16:03 | CT Scan Report ---
CT SCAN OF THE BRAIN WITHOUT IV CONTRAST CLINICAL HISTORY: Change in mental status. Lymphoma. COMPARISON STUDY: CT of the brain dated 05/24/2021. TECHNIQUE: Unenhanced axial CT scan of the brain is performed from the vertex to the skull base. A d ose lowering technique was utilized adhering to the principles of ALARA. FINDINGS: Brain parenchyma: Right frontal encephalomalacia is unchanged and consistent with a remote insult. Th ere is loss of fritz-white matter differentiation identified in the right occipital lobe which is new from previous. There is no hemorrhage or mass effect. No extra-axial fluid collection is seen. Ventricles, sulci, cisterns: Normal in configuration. Intracranial vasculature: The visualized intracranial vasculature at the skull base is normal in appe arance. Calvarium: Unremarkable. Sinuses and mastoids: The visualized paranasal sinuses are clear. There is a small left mastoid effus ion. The right mastoid air cells are well pneumatized. Orbits: The bony orbits are grossly intact. IMPRESSION: 1. There is loss of fritz-white matter differentiation in the right occipital lobe which is new from 1 . This is consistent with with a subacute to chronic infarct. 2. 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 3. There is no hemorrhage or mass effect. 4. Additional findings as above. ACT 112: Negative or not required by law. Electronically signed by: Riaz Arguelles M.D. 02/17/2022 4:02 PM
--- NOTE | 2022-02-17 16:03 | CT Scan Report ---
CT chest diagnostic w con CLINICAL HISTORY: pain, bcell lymphoma TECHNIQUE: Multidetector row helical CT of the chest was performed with intravenous contrast. Coronal and sagittal reformations were obtained. Automated dose lowering techniques and/or adjustment accord ing to patient size were utilized for this exam. CT DOSE: 2020.00 mGy.cm Comparison: Comparison is made to chest radiograph 02/17/2022 FINDINGS: Lungs and pleura: Atelectasis versus scarring is seen in the dependent portions of the lungs. Heart and pericardium: Heart size is normal. No pericardial effusion. Vessels: The pulmonary trunk is enlarged measuring 33 mm. Within the limits of a nondedicated study, no large pulmonary embolus is seen. Mediastinum and milagros: Unremarkable. Chest wall and lower neck: A right port catheter is seen with its tip in satisfactory position. Abdomen: For findings below the diaphragm, please refer to CT of the abdomen dated the same. Bones: Degenerative changes of the thoracic spine. Old healed rib fractures are seen. A surgical scre w is incidentally seen in the left scapula. IMPRESSION: No acute abnormalities are seen. No evidence of lymphadenopathy in this patient with history of B-rina l lymphoma. Old healed fractures are seen without evidence of new fracture. ACT 112: Negative or not required by law. Electronically signed by: Yossi Jaffe M.D. 02/17/2022 4:02 PM
--- NOTE | 2022-02-17 16:07 | CT Scan Report ---
CT SCAN OF THE CERVICAL SPINE CLINICAL HISTORY: Neck pain. Weakness. COMPARISON STUDY: CT of the neck dated 01/22/2022. TECHNIQUE: CT scan of the cervical spine is performed from the skull base to the upper thoracic spine . Images are reviewed in the axial, sagittal, and coronal planes. IV contrast was not administered fo r this examination. A dose lowering technique was utilized adhering to the principles of ALARA. FINDINGS: Skeletal structures: The skeletal structures appear osteopenic. There is no evidence of fracture or s ubluxation involving the cervical spine. Vertebral body height and alignment are maintained. There is straightening of the cervical lordosis. Tiny anterior osteophytes are noted in the lower cervical re gion. The odontoid process and lateral masses are intact. The atlantoaxial articulation is preserved noting mild productive degenerative change. The spinous processes appear intact. Intervertebral discs: The disc spaces appear maintained. Central canal: Grossly patent. Soft tissues: The prevertebral and paraspinous soft tissues are within normal limits. A right interna l jugular central venous infusion port is in place. Calvarium: The visualized calvarium at the skull base appears intact. Brain parenchyma: Partially visualized brain parenchyma at the skull base is within normal limits. Sinuses and mastoids: The visualized paranasal sinuses are clear. There is a small left mastoid effus ion. The right mastoid air cells are well pneumatized. Lung apices: Clear as visualized. IMPRESSION: No acute bony abnormality is seen involving the cervical spine. ACT 112: Negative or not required by law. Electronically signed by: Riaz Arguelles M.D. 02/17/2022 4:06 PM
--- NOTE | 2022-02-17 16:12 | CT Scan Report ---
CT abd pelvis IV con only CLINICAL HISTORY: pain, bcell lymphoma TECHNIQUE: Helical axial images of the abdomen and pelvis were obtained and displayed. Automated dose lowering techniques and/or adjustment according to patient size were utilized for this exam. This e xam was performed with intravenous contrast. COMPARISON: Comparison is made to CT enterography 04/05/2021 FINDINGS: Lower chest: For findings above the diaphragm, please see CT chest performed same day. Liver: Unremarkable. No focal lesions are seen. Previously noted caudate lesion is no longer seen. Gallbladder and biliary tree: Cholelithiasis is seen without evidence of cholecystitis. No intra- or extrahepatic biliary ductal dilation. Pancreas: Fatty replacement of the pancreas is seen. Spleen: Unremarkable. Adrenals: Unremarkable. Kidneys and ureters: Unremarkable. Bladder: Unremarkable. Reproductive organs: Prostatomegaly is seen. Bowel: Unremarkable appearance of the bowel. The appendix is normal. Lymph nodes Retroperitoneal: Unremarkable. Mesenteric: Unremarkable. Pelvic: Unremarkable. Peritoneum: Previously noted mesenteric deposits have almost completely resolved. There is a tiny rig ht-sided soft tissue lesion measuring 4 x 15 mm which likely represents residua of previously noted m ass. A few calcified foci are noted in the peritoneum which also likely reflects treated masses. Vessels: Unremarkable. Abdominal wall: Bilateral fat-containing inguinal hernias are seen. Bones: Unremarkable. IMPRESSION: 1. No acute abnormalities are seen. In particular no evidence of lymphadenopathy is noted. Previousl y noted peritoneal deposits have essentially resolved with a few residual findings as above. 2. Cholelithiasis without evidence of cholecystitis. ACT 112: Negative or not required by law. Electronically signed by: Yossi Jaffe M.D. 02/17/2022 4:11 PM
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
[2022-02-17] MEDS ORDERED: ALUMINUM/MAGNESIUM SUSP 30 ML UDC PO PRN (18:21)
[2022-02-17] MEDS ORDERED: MAGNESIUM HYDROXIDE SUSP 30 ML UDC PO PRN (18:21)
[2022-02-17] MEDS ORDERED: LORazepam 0.5 MG TAB SL PRN (18:21)
[2022-02-17] MEDS ORDERED: ONDANSETRON INJ 2 MG/ML 2 ML VIAL IV PRN (18:21)
[2022-02-17] MEDS ORDERED: POLYETHYLENE (MIRALAX) 17 GM PACK PO PRN (18:21)
[2022-02-17] MEDS ORDERED: ACETAMINOPHEN 325 MG TAB PO PRN (18:21)
[2022-02-17 18:40] LABS: Thyroid Stimulating Hormone 0.224 uIu/ml (0.300-4.500)
[2022-02-17] MEDS ORDERED: CALCIUM CARBONATE 500 MG CHEWABLE TAB PO PRN (18:41)
[2022-02-17 19:13] LABS: T4 Free Thyroxine 0.77 ng/dl (0.61-1.60)
[2022-02-17 19:33] LABS: Amphetamines+Metham, Urine Neg (Neg); Barbiturates, Urine Neg (Neg); Benzodiazepine, Urine Neg (Neg); Cocaine, Urine Neg (Neg); MDMA (Ecstacy), Urine Neg (Neg); Methadone, Urine Neg (Neg); Opiate, Urine Neg (Neg); Phencyclidine, Urine Neg (Neg)
[2022-02-17] MEDS ORDERED: oxyCODONE HCL IR 5 MG TAB (IMMEDIATE RELEASE) PO PRN (19:55)
[2022-02-17] MEDS: ACYCLOVIR 400 MG TAB PO SCH (19:59)
[2022-02-17] MEDS: OLANZapine 10 MG TAB PO SCH (20:00)
[2022-02-17] MEDS: levETIRAcetam 500 MG TAB PO SCH (20:00)
[2022-02-17] MEDS: APIXABAN 5 MG TABLET PO SCH (20:01)
[2022-02-17] MEDS: FAMOTIDINE 20 MG TAB PO SCH (20:01)
[2022-02-17] MEDS ORDERED: GADOBUTROL 65ML VIAL IV ONE (21:36)
[2022-02-17] MEDS ORDERED: LORazepam 0.25 MG in SYRINGE 0.125 ML IV STA (22:27)
[2022-02-18] MEDS ORDERED: HYDROmorphone INJ 0.5 MG/0.5 ML SYR IV STA (01:06)
[2022-02-18 06:46] LABS: Albumin Globulin Ratio 1.6 (0.9-2); Albumin Level 3.3 gm/dl (3.4-5.0); BUN Creatinine Ratio 23.5 (10-20); Bilirubin,Total 0.7 mg/dl (0.2-1.0); Calcium 8.1 mg/dl (8.5-10.1); Creatinine Clr Calc Pharmacy 118.8 ml/min; Est GFR (African American) 124.6 ml/min; Est GFR (Non-African American) 107.5 ml/min; Globulin 2.1 gm/dl (2.5-4.0); Potassium 3.7 mmol/L (3.5-5.1); Total Protein 5.4 gm/dl (6.0-8.3)
[2022-02-18 07:04] LABS: Hematocrit (blood only) 27.5 % (40.1-51.0); Hemoglobin 9.3 g/dl (14.0-18.0); Mean Corpuscular Hemoglobin 31.6 pg (25.0-34.0); Mean Corpuscular Hgb Conc 33.8 g/dL (32.0-36.0); Mean Corpuscular Volume 93.5 fL (80.0-100.0); Nucleated RBC % (auto) 9.5 %; Platelet Count 23 K/uL (130-400); RDW Coefficient of Variation 22.6 % (11.5-14.5); RDW Standard Deviation 74.4 fL (36.4-46.3); Red Blood Count 2.94 M/uL (4.63-6.08); White Blood Count 4.23 K/ul (4.8-10.8)
[2022-02-18 07:51] LABS: ALC (manual) 0.85 K/uL (1.2-3.4); ANC (manual) 2.75 K/uL (1.4-6.5); Anisocytosis Present; Blast # (manual) 0.04 K/uL (0-0); Blast Cells % (manual) 1 %; Eosinophils # (manual) 0.04 K/uL (0-0.50); Eosinophils % (manual) 1 %; Lymphocytes # (manual) 0.85 K/uL (1.2-3.4); Lymphocytes % (manual) 20 %; Metamyelocytes # (manual) 0.21 K/uL (0-0); Metamyelocytes % (manual) 5 %; Monocytes # (manual) 0.25 K/uL (0.24-0.82); Monocytes % (manual) 6 %; Myelocytes # (manual) 0.13 K/uL (0-0); Myelocytes % (manual) 3 %; Neutrophils # (manual) 2.75 K/uL (1.4-6.5); Neutrophils % (manual) 65 %; Ovalocytes 1+; Platelet Estimate Decreased (Normal); Polychromasia 1+; Schistocytes 1+; Tear Drop Cells 1+
[2022-02-18] MEDS: allopurinoL 300 MG TAB PO SCH (08:11)
[2022-02-18] MEDS: FAMOTIDINE 20 MG TAB PO SCH ×2 (08:11→22:46)
[2022-02-18] MEDS: APIXABAN 5 MG TABLET PO SCH (08:11)
[2022-02-18] MEDS: levETIRAcetam 500 MG TAB PO SCH ×2 (08:11→22:46)
[2022-02-18] MEDS: ACYCLOVIR 400 MG TAB PO SCH ×2 (08:11→22:46)
--- NOTE | 2022-02-18 08:38 | Magnetic Resonance Report ---
MR brain wo/w con CLINICAL HISTORY: altered mental status, metastatic b cell lymphoma. COMPARISON STUDY: CT brain from 02/17/2022 TECHNIQUE: Multiplanar multisequence images of the brain were performed before and after Gadavist, 7 .8 mL of IV contrast. Diffusion weighted imaging and ADC mapping was also performed. FINDINGS: Extra-axial space: There is no evidence for a subdural hematoma, There are no extra-axial fluid gabby ections. Ventricles and cisterns: The ventricles are mildly dilated bilaterally. There is no evidence for mid line shift or mass effect. Parenchyma: On noncontrast images, there is no evidence for an acute hemorrhage or infarct. No acute diffusion abnormalities are noted on diffusion weighted imaging or ADC mapping. The finding seen on C T of the brain represents an old right occipital infarct. Old right frontal infarct is also present. There is mild cerebral cortical atrophy present. There is mild bright signal seen on T2 and FLAIR mehreen ghted sequences within the centrum semiovale and periventricular white matter characteristic of remot e small vessel disease. The sulci and gyri appear normal without effacement. The midline structures a re unremarkable. The posterior fossa structures appear normal. On postcontrast images, there is no evidence for enhancing mass lesion. Osseous structures: The paranasal sinuses are well aerated. The mastoid air cells are well aerated. Soft tissues: No focal soft tissue abnormalities are identified. IMPRESSION: 1. No acute intracranial abnormalities. 2. 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 3. Cerebral cortical atrophy and remote small vessel disease. 4. No enhancing mass lesions are identified. ACT 112: Negative or not required by law. Electronically signed by: John Ashton M.D. 02/18/2022 8:37 AM
[2022-02-18] MEDS ORDERED: oxyCODONE HCL IR 5 MG TAB (IMMEDIATE RELEASE) PO PRN (09:00)
[2022-02-18] MEDS ORDERED: TAMSULOSIN HCL 0.4 MG CAP PO SCH (09:00)
[2022-02-18] MEDS ORDERED: dexAMETHasone 4 MG TAB PO SCH ×2 (09:00→21:00)
[2022-02-18] MEDS ORDERED: MULTIVITAMIN TAB PO SCH (09:00)
[2022-02-18] MEDS ORDERED: POLYETHYLENE (MIRALAX) 17 GM PACK PO SCH (13:45)
--- NOTE | 2022-02-18 13:45 | Hospitalist Progress Note ---
Date of Service February 18, 2022 Assessment & Plan (1) Acute metabolic encephalopathy: (2) Thrombocytopenia: (3) Lymphoma: (4) Hypoxia: (5) Immunocompromised: Plan Acute metabolic encephalopathy -Unclear etiology -Workup so far (MRI brain, CT head, CBC and BMP unrevealing) -Interesting, patient reportedly took oxycodone and ativan yesterday but his UDS is negative for this--> requested his family bring his bottles in tomorrow so we can send it to pharmacy tomorrow to investigate further -Check UA/Urine culture, check RPR, ammonia, B12, folate, thiamine, tick borne panel -Procalcitonin not elevated but with his confusion and pending blood culture, will empirically start vancomycin and cefepime pending further evaluation -Will ask for Neurology evaluation Thrombocytopenia -worsening, will hold Eliquis. He is at increased risk for bleed with his plt < 50K Sinus Tachycardia -Long standing history per family, review of his old EKG. HR from 2020 was indeed elevated at 130s. -will start metoprolol 12.5mg BID with hold parameters -check TTE Lymphoma -repeat imaging does not show recurrence, last chemotherapy 2 weeks ago. Patient sees DR Atkins DVT ppx -SCDs for now, no AC due to thrombocytopenia currently Admission and Anticipated Discharge Date Admission Date: February 17, 2022 Subjective Still very confused, no fever/chills Family reports patient was normal on Thursday, he went out on Thursday ([facility]) and Thursday started getting confused Yesterday (thursday), he reportedly took his oxycodone and lorazepam Patient reports hip pain, most prominent in left hip Otherwise no recent illness Had chemotherapy 2 weeks ago Physical Exam Physical Exam: Appears confused, mildly ill appearing, non toxic Respiratory: breathing comfortably, no wheezing/rhonchi Cardiovascular: tachycardic but regular, no murmurs/rubs Gastrointestinal (Abdomen): hypoactive BS, +tympanic diffusely, non tender Musculoskeletal: No edema, no cyanosis or clubbing Skin: Appears jaundiced Neurologic: awake, answering simple questions appropriately when asked, appears confused, spontaneously moving extremities, no nuchal rigidity Results & Data Results & Data ([facility]) Vital Signs (Past 12 Hours) Vital Signs Temp Pulse Pulse Resp BP BP Pulse Ox 02/18/22 11:28 36.5 C 143 H 19 106/72 91 02/18/22 08:00 128 H 02/18/22 07:58 37.4 C 134 H 22 104/70 94 02/18/22 03:44 36.4 C L 130 H 18 128/87 92 O2 Del Method O2 Flow Rate 02/18/22 11:28 Nasal Cannula 4 02/18/22 08:00 02/18/22 07:58 Nasal Cannula 4 02/18/22 03:44 Nasal Cannula 4 Laboratory Results Short CBC 02/17/22 02/18/22 Range/Units 14:35 05:55 WBC 5.96 4.23 L (4.8-10.8) K/ul Hgb 10.1 L 9.3 L (14.0-18.0) g/dl Hct 30.7 L 27.5 L (40.1-51.0) % Plt Count 43 L 23 L* (130-400) K/uL BMP 02/17/22 02/18/22 14:35 05:55 Sodium 136 135 L Potassium 4.4 3.7 Chloride 102 103 Carbon Dioxide 25 25 BUN 22 16 Creatinine 0.70 0.68 Glucose 99 90 Calcium 8.5 8.1 L Liver Function 02/17/22 02/18/22 Range/Units 14:35 05:55 Total Bilirubin 0.5 0.7 (0.2-1.0) mg/dl AST 119 H 110 H (13-39) U/L ALT 45 54 H (7-52) U/L Alkaline Phosphatase 104 119 H (34-104) U/L Albumin 3.8 3.3 L (3.4-5.0) gm/dl Medications Administered Current Inpatient Medications Acetaminophen (Acetaminophen 325 Mg Tab) 650 mg PO Q4H PRN PRN Reason: Pain or Fever Stop: 03/19/22 18:20 Acyclovir (Acyclovir 400 Mg Tab) 400 mg PO BID IAN Stop: 03/19/22 20:59 Last Admin: 02/18/22 08:11 Dose: 400 mg Al Hydrox/Mg Hydrox/Simethicone (Aluminum/Magnesium Susp 30 Ml Udc) 15 ml PO Q4H PRN PRN Reason: Dyspepsia Stop: 03/19/22 18:20 Allopurinol (Allopurinol 300 Mg Tab) 300 mg PO QAM IAN Stop: 03/20/22 08:59 Last Admin: 02/18/22 08:11 Dose: 300 mg Apixaban (Apixaban 5 Mg Tablet) 5 mg PO BID IAN Stop: 03/19/22 20:59 Last Admin: 02/18/22 08:11 Dose: 5 mg Calcium Carbonate (Calcium Carbonate 500 Mg Chewable Tab) 500 mg PO BID PRN PRN Reason: heartburn Stop: 03/19/22 18:40 Dexamethasone (Dexamethasone 4 Mg Tab) 4 mg PO DAILY IAN Stop: 03/20/22 08:59 Last Admin: 02/18/22 08:11 Dose: 4 mg Famotidine (Famotidine 20 Mg Tab) 20 mg PO BID IAN Stop: 03/19/22 20:59 Last Admin: 02/18/22 08:11 Dose: 20 mg Levetiracetam (Levetiracetam 500 Mg Tab) 500 mg PO BID IAN Stop: 03/19/22 20:59 Last Admin: 02/18/22 08:11 Dose: 500 mg Lorazepam (Lorazepam 0.5 Mg Tab) 0.5 mg SL HS PRN PRN Reason: Anxiety Stop: 03/19/22 18:20 Last Admin: 02/17/22 19:59 Dose: 0.5 mg Magnesium Hydroxide (Magnesium Hydroxide Susp 30 Ml Udc) 30 ml PO Q12H PRN PRN Reason: Constipation Stop: 03/19/22 18:20 Metoprolol Tartrate (Metoprolol Tartrate 25 Mg Tab) 12.5 mg PO BID IAN Stop: 03/20/22 20:59 Multivitamins (Multivitamin Tab) 1 tab PO QAM IAN Stop: 03/20/22 08:59 Last Admin: 02/18/22 08:11 Dose: 1 tab Olanzapine (Olanzapine 10 Mg Tab) 10 mg PO HS IAN Stop: 03/19/22 20:59 Last Admin: 02/17/22 20:00 Dose: 10 mg Ondansetron HCl (Ondansetron Inj 2 Mg/Ml 2 Ml Vial) 4 mg IV Q6H PRN PRN Reason: Nausea Stop: 03/19/22 18:20 Oxycodone HCl (Oxycodone Hcl Ir 5 Mg Tab (Immediate Release)) 5 mg PO BID PRN PRN Reason: moderate pain, 6-10 Stop: 03/03/22 19:54 Last Admin: 02/17/22 20:06 Dose: 5 mg Polyethylene Glycol (Polyethylene (Miralax) 17 Gm Pack) 17 gm PO DAILY IAN Stop: 03/20/22 13:44 Tamsulosin HCl (Tamsulosin Hcl 0.4 Mg Cap) 0.4 mg PO QAM [facility] Stop: 03/20/22 08:59 Last Admin: 02/18/22 08:12 Dose: 0.4 mg
[2022-02-18] MEDS ORDERED: VANCOMYCIN CONSULT ACTIVE PRN (13:55)
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
[2022-02-18] MEDS ORDERED: VANCOMYCIN HCL 2,000 MG in SODIUM CHLORIDE 0.9% 500 ML IV ONE (14:30)
--- NOTE | 2022-02-18 14:32 | Pharmacy Report ---
Pharmacy PK ABX Note - Date of Service February 18, 2022 - Assessment and Plan Assessment 56 year old M receiving IV vancomycin and cefepime empirically in setting of immunocompromised state and encephalopathy. Blood cultures pending. Renal function stable. Day #1 of antimicrobial therapy. Plan Vancomycin * Loading dose: 2gm IV X 1 * Maintenance dose: 1250 mg IV every 12 hours * Regimen is predicted to achieve target AUC/LENKA of 400-600 mg/L.hr * Level to be ordered if therapy continues beyond 48h or sooner if clinically indicated. Pharmacy will continue to follow and will adjust dose/frequency as necessary. Thank you. Pharmacy has transitioned to AUC monitoring for vancomycin. AUC/LENKA is the preferred PK/PD target and is associated with decreased risk of nephrotoxicity compared to traditional trough targets.
--- NOTE | 2022-02-18 14:57 | XRay Report ---
XR hip ANY 2v w pelvis CLINICAL HISTORY: Bilateral hip pain. COMPARISON STUDY: Abdomen and pelvis CT 02/17/2022. FINDINGS: No fracture or dislocation within the pelvis or hips. The sacrum appears intact. Soft tissu es are unremarkable. Mild osteoarthritis within the bilateral hips. IMPRESSION: 1. No fractures within the pelvis or hips. 2. Mild bilateral hip osteoarthritis. ACT 112: Negative or not required by law. Electronically signed by: Tramaine Hunt M.D. 02/18/2022 2:56 PM
[2022-02-18] MEDS: CEFEPIME 2,000 MG in SYRINGE 0 ML IV SCH ×2 (15:00→22:49)
[2022-02-18 15:09] LABS: Albumin Globulin Ratio 1.4 (0.9-2); Albumin Level 3.5 gm/dl (3.4-5.0); BUN Creatinine Ratio 24.1 (10-20); Bilirubin,Total 0.7 mg/dl (0.2-1.0); Calcium 8.5 mg/dl (8.5-10.1); Creatinine Clr Calc Pharmacy 97.3 ml/min; Est GFR (African American) 114.8 ml/min; Est GFR (Non-African American) 99.1 ml/min; Globulin 2.5 gm/dl (2.5-4.0); Potassium 4.1 mmol/L (3.5-5.1)
[2022-02-18 15:23] LABS: Folate (Folic Acid) > 22.30 ng/ml (>5.38)
[2022-02-18 15:24] LABS: Vitamin B12 170 pg/ml (180-914)
[2022-02-18 15:35] LABS: Hematocrit (blood only) 30.3 % (40.1-51.0); Mean Corpuscular Hemoglobin 31.5 pg (25.0-34.0); Mean Corpuscular Volume 95.6 fL (80.0-100.0); Nucleated RBC # (auto) 0.35 K/uL (0-0); Nucleated RBC % (auto) 6.4 %; Platelet Count 21 K/uL (130-400); RDW Standard Deviation 77.4 fL (36.4-46.3); Red Blood Count 3.17 M/uL (4.63-6.08); White Blood Count 5.47 K/ul (4.8-10.8)
[2022-02-18 15:43] LABS: Appearance Urine Clear (Clear); Bacteria Urine Automated Negative (Negative); Bilirubin Urine Negative (Negative); Blood Urine Negative (Negative); Color Urine Dark Yellow; Epithelial Cell Urine Auto >30 /lpf (0-5); Glucose Urine UA Negative (Negative); Ketones Urine Negative (Negative); Leukocyte Esterase Urine Negative (Negative); Nitrite Urine Negative (Negative); Protein Urine 1+ (Negative); RBC Urine Automated 0-4 /hpf (0-4); Specific Gravity Urine 1.021 (1.000-1.030); Urobilinogen Urine Negative (Negative); pH Urine 5.5 (4.5-7.5)
[2022-02-18 15:45] LABS: Lyme Ab IgG w/WB Rflx Negative (Negative); Lyme Ab IgM w/WB Rflx Negative (Negative)
[2022-02-18 15:52] LABS: ALC (manual) 0.77 K/uL (1.2-3.4); ANC (manual) 3.23 K/uL (1.4-6.5); Anisocytosis Present; Basophils # (manual) 0.05 K/uL (0-0.2); Basophils % (manual) 1 %; Lymphocytes # (manual) 0.77 K/uL (1.2-3.4); Lymphocytes % (manual) 14 %; Metamyelocytes # (manual) 1.09 K/uL (0-0); Metamyelocytes % (manual) 20 %; Monocytes # (manual) 0.11 K/uL (0.24-0.82); Monocytes % (manual) 2 %; Myelocytes # (manual) 0.11 K/uL (0-0); Myelocytes % (manual) 2 %; Neutrophils # (manual) 3.23 K/uL (1.4-6.5); Neutrophils % (manual) 59 %; Platelet Estimate Decreased (Normal); Promyelocytes # (manual) 0.11 K/uL (0-0); Promyelocytes % (manual) 2 %; Schistocytes 1+; Tear Drop Cells 2+
[2022-02-18 15:54] LABS: Renal Epithelial Cells Urine 0-5 /lpf (0-5)
[2022-02-18] MEDS ORDERED: HEPARIN 100 UNIT/ML 5ML FLUSH FLUSH PRN (16:13)
--- NOTE | 2022-02-18 16:59 | Electrocardiogram Report ---
Test Reason : Blood Pressure : / mmHG Vent. Rate : 119 BPM Atrial Rate : 119 BPM P-R Int : 120 ms QRS Dur : 078 ms QT Int : 302 ms P-R-T Axes : 044 066 055 degrees QTc Int : 424 ms Poor data quality, interpretation may be adversely affected Sinus tachycardia Septal infarct , age undetermined Abnormal ECG When compared with ECG of 29-MAR-2021 20:47, Septal infarct is now Present Nonspecific T wave abnormality now evident in Anterior leads Confirmed by Jas Wu ([id number]) on 02/18/2022 4:59:01 PM Referred By: REFERRED SELF Confirmed By:Jas Wu
--- NOTE | 2022-02-18 19:18 | CT Scan Report ---
HEAD CT NONCONTRAST CT DOSE: 960.06 mGy.cm HISTORY: altered mental status TECHNIQUE: Multiaxial CT images of the head were performed without the use of intravenous contrast. A utomated exposure control was utilized for this study. A dose lowering technique was utilized adheri ng to the principles of ALARA. Comparison: Head CT 02/17/2022. Findings: The paranasal sinuses and mastoid air cells are clear. The calvarium and skull base are int act. The ventricles and sulci are within normal limits. There is no hematoma, midline shift, or acute infarct. Old right frontal lobe infarct again noted. Persistent hypodensity within the right occipit al lobe with a peripheral 2 cm intermediate density focus best seen on image 17. This could represent the normal residual brain parenchyma with a surrounding old infarct. A small peripheral lesion with associated vasogenic edema could also have a similar appearance. Impression: 1. No acute infarct or intracranial hemorrhage. 2. Old right frontal lobe infarct. 3. Persistent hypodensity within the right occipital lobe with a peripheral 2 cm intermediate density focus. This area was difficult to assess on the prior brain MRI due to the motion artifact. Consider repeat brain MRI with and without intravenous contrast to exclude the possibility of a small periphe ral lesion. ACT 112: Negative or not required by law. Electronically signed by: Tramaine Hunt M.D. 02/18/2022 7:15 PM
[2022-02-18] MEDS ORDERED: METOPROLOL TARTRATE 1 MG/ML VIAL IV STA ×2 (20:00→21:02)
[2022-02-18] MEDS ORDERED: SODIUM CHLORIDE 0.9% 500 ML IV SCH (20:00)
[2022-02-18] MEDS ORDERED: METOPROLOL TARTRATE 25 MG TAB PO SCH (21:00)
[2022-02-18 21:23] LABS: Base Excess ABG 2.3 mEq/L (-9-1.8); HCO3 ABG 23 mmol/L (19-24); Oxygen Saturation ABG 97.8 % (90-95); PCO2 ABG 26 mmHg (35-46); PO2 ABG 97 mmHg (80-95)
[2022-02-18 21:27] LABS: Allen Test Pos (Pos)
[2022-02-18 21:28] LABS: pH ABG 7.56 (7.35-7.45)
[2022-02-18] MEDS ORDERED: LORazepam 0.25 MG in SYRINGE 0.125 ML IV STA (21:42)
[2022-02-18] MEDS ORDERED: LORazepam 0.25 MG in SYRINGE 0.125 ML IV SCH (22:20)
[2022-02-18] MEDS: OLANZapine 10 MG TAB PO SCH (22:47)
[2022-02-19] MEDS: VANCOMYCIN HCL 1,250 MG in SODIUM CHLORIDE 0.9% 250 ML IV SCH ×3 (01:08→23:03)
[2022-02-19] MEDS: CEFEPIME 2,000 MG in SYRINGE 0 ML IV SCH ×3 (05:07→21:46)
[2022-02-19 06:21] LABS: Rapid Plasma Reagin Nonreactive (Nonreactive)
[2022-02-19 06:45] LABS: Albumin Globulin Ratio 1.2 (0.9-2); Albumin Level 3.1 gm/dl (3.4-5.0); BUN Creatinine Ratio 31.4 (10-20); Bilirubin,Total 0.7 mg/dl (0.2-1.0); Creatinine Clr Calc Pharmacy 115.4 ml/min; Est GFR (African American) 123.1 ml/min; Est GFR (Non-African American) 106.2 ml/min; Globulin 2.5 gm/dl (2.5-4.0); Potassium 3.9 mmol/L (3.5-5.1); Total Protein 5.6 gm/dl (6.0-8.3)
[2022-02-19 07:00] LABS: ALC (manual) 0.88 K/uL (1.2-3.4); ANC (manual) 2.57 K/uL (1.4-6.5); Blast # (manual) 0.08 K/uL (0-0); Blast Cells % (manual) 2 %; Echinocytes 1+; Hematocrit (blood only) 26.6 % (40.1-51.0); Hemoglobin 8.7 g/dl (14.0-18.0); Lymphocytes # (manual) 0.88 K/uL (1.2-3.4); Lymphocytes % (manual) 21 %; Mean Corpuscular Hemoglobin 30.9 pg (25.0-34.0); Mean Corpuscular Hgb Conc 32.7 g/dL (32.0-36.0); Mean Corpuscular Volume 94.3 fL (80.0-100.0); Metamyelocytes # (manual) 0.34 K/uL (0-0); Metamyelocytes % (manual) 8 %; Monocytes # (manual) 0.04 K/uL (0.24-0.82); Monocytes % (manual) 1 %; Myelocytes # (manual) 0.21 K/uL (0-0); Myelocytes % (manual) 5 %; Neutrophils # (manual) 2.57 K/uL (1.4-6.5); Neutrophils % (manual) 61 %; Nucleated RBC # (auto) 0.32 K/uL (0-0); Nucleated RBC % (auto) 7.6 %; Ovalocytes 1+; Promyelocytes # (manual) 0.13 K/uL (0-0); Promyelocytes % (manual) 3 %; RDW Coefficient of Variation 22.7 % (11.5-14.5); RDW Standard Deviation 77.2 fL (36.4-46.3); Red Blood Count 2.82 M/uL (4.63-6.08); White Blood Count 4.21 K/ul (4.8-10.8)
[2022-02-19 07:16] LABS: Platelet Count 14 K/uL (130-400)
[2022-02-19] MEDS ORDERED: levETIRAcetam 500 MG in 0.9 % SODIUM CHLORIDE 100 ML IV SCH (08:15)
[2022-02-19] MEDS ORDERED: D5W AND 1/2NSS 1,000 ML IV SCH (08:30)
[2022-02-19] MEDS: PANTOprazole 40 MG in SYRINGE 0 ML IV SCH ×2 (09:26→21:43)
[2022-02-19] MEDS: dexAMETHasone 4 MG in SYRINGE 0 ML IV SCH ×2 (09:27→21:45)
[2022-02-19] MEDS ORDERED: ACYCLOVIR SOD 770 MG in DEXTROSE 5% 250 ML IV SCH (09:30)
[2022-02-19] MEDS ORDERED: RAPID SEQUENCE INDUCTION BAG ONE (10:21)
--- NOTE | 2022-02-19 10:22 | XRay Report ---
XR chest 1V portable CLINICAL HISTORY: hypoxia TECHNIQUE: Single frontal radiograph of the chest was obtained. Comparison: Comparison is made to chest radiograph 02/17/2022 FINDINGS: A port catheter is seen. The cardiomediastinal silhouette is stable. Bilateral lower lung predominant airspace opacities are seen. No evidence of pleural effusion or pneumothorax. IMPRESSION: Bilateral lower lung predominant airspace opacities which may represent atelectasis, pneumonia, and/o r aspiration. ACT 112: Negative or not required by law. Electronically signed by: Yossi Jaffe M.D. 02/19/2022 10:21 AM
--- NOTE | 2022-02-19 10:44 | Electroencephalogram ---
EEG Procedure Note Date of Service February 19, 2022 Start / End Times Start Time: 09:14 End Time: 09:[address] Lakeisha Lucio MD History A 56 year old male with altered mental status and history of lymphoma. EEG performed for evaluation of epileptiform activity. Home Medication List Medication Instructions Recorded Confirmed Type acyclovir 400 mg tablet 400 mg PO BID 01/22/22 02/17/22 History allopurinol 300 mg tablet 300 mg PO QAM 01/22/22 02/17/22 History apixaban 5 mg (74 tabs) tablets in 5 mg PO BID #74 ea 01/22/22 02/17/22 Rx a dose pack (Eliquis) dexamethasone 4 mg tablet 4 mg PO DAILY 01/22/22 02/17/22 History famotidine 20 mg tablet 20 mg PO BID 01/22/22 02/17/22 History levetiracetam 500 mg tablet 500 mg PO BID 01/22/22 02/17/22 History lorazepam 1 mg tablet 1 mg sublingual TID PRN Anxiety 01/22/22 02/17/22 History multivitamin 1 tab PO QAM 01/22/22 02/17/22 History olanzapine 10 mg tablet 10 mg PO HS 01/22/22 02/17/22 History tamsulosin 0.4 mg capsule 0.4 mg PO QAM 01/22/22 02/17/22 History calcium carbonate 500 mg calcium 500 mg PO BID PRN heartburn 02/17/22 02/17/22 History (1,250 mg) chewable tablet gabapentin 300 mg capsule 300 mg PO HS 02/17/22 02/17/22 History oxycodone 5 mg capsule 5 - 10 mg PO Q6H PRN Pain 02/17/22 02/17/22 History Inpatient Medication List Acyclovir (Acyclovir 400 Mg Tab) 400 mg PO BID IAN Stop: 03/19/22 20:59 Last Admin: 02/18/22 22:46 Dose: Not Given Documented By: Admin: 02/18/22 08:11 Dose: 400 mg Documented By: Admin: 02/17/22 19:59 Dose: 400 mg Documented By: SAAD Allopurinol (Allopurinol 300 Mg Tab) 300 mg PO QAM IAN Stop: 03/20/22 08:59 Last Admin: 02/18/22 08:11 Dose: 300 mg Documented By: STEVE Apixaban (Apixaban 5 Mg Tablet) 5 mg PO BID IAN Stop: 03/19/22 20:59 Last Admin: 02/18/22 08:11 Dose: 5 mg Documented By: Admin: 02/17/22 20:01 Dose: 5 mg Documented By: SAAD Dexamethasone (Dexamethasone 4 Mg Tab) 4 mg PO BID IAN Stop: 03/20/22 20:59 Last Admin: 02/18/22 22:46 Dose: Not Given Documented By: MARLENE Famotidine (Famotidine 20 Mg Tab) 20 mg PO BID IAN Stop: 03/19/22 20:59 Last Admin: 02/18/22 22:46 Dose: Not Given Documented By: Admin: 02/18/22 08:11 Dose: 20 mg Documented By: Admin: 02/17/22 20:01 Dose: 20 mg Documented By: SAAD Cefepime HCl 2,000 mg/ Syringe 20 mls @ 5 mls/min IV Q8H IAN; Protocol Stop: 02/20/22 13:59 Last Admin: 02/19/22 05:07 Dose: 5 mls/min Documented By: Admin: 02/18/22 22:49 Dose: 5 mls/min Documented By: Admin: 02/18/22 15:00 Dose: 5 mls/min Documented By: STEVE Vancomycin HCl 1,250 mg/ (Sodium Chloride) 275 mls @ 200 mls/hr IV Q12H IAN Stop: 02/21/22 00:00 Last Infusion: 02/19/22 02:37 Dose: 0 mls/hr Documented By: Admin: 02/19/22 01:08 Dose: 200 mls/hr Documented By: MARLENE Levetiracetam 500 mg/ Sodium (Chloride) 105 mls @ 420 mls/hr IV Q12H IAN Stop: 03/21/22 08:14 Last Admin: 02/19/22 09:26 Dose: 420 mls/hr Documented By: STEVE Dexamethasone 4 mg/ Syringe 1 mls @ 1 mls/min IV Q12 IAN Stop: 03/21/22 08:59 Last Admin: 02/19/22 09:27 Dose: 1 mls/min Documented By: STEVE Pantoprazole Sodium 40 mg/ (Syringe) 10 mls @ 5 mls/min IV BID IAN Stop: 03/21/22 08:59 Last Admin: 02/19/22 09:26 Dose: 5 mls/min Documented By: STEVE Acyclovir Sodium 770 mg/ (Dextrose) 265.4 mls @ 250 mls/hr IV Q8H [facility] Stop: 03/01/22 09:29 Last Admin: 02/19/22 09:55 Dose: 250 mls/hr Documented By: STEVE Dextrose/Sodium Chloride (D5w And 1/2nss) 1,000 mls @ 80 mls/hr IV .[id number] IAN Stop: 02/20/22 08:29 Last Admin: 02/19/22 09:32 Dose: 80 mls/hr Documented By: STEVE Levetiracetam (Levetiracetam 500 Mg Tab) 500 mg PO BID [facility] Stop: 03/19/22 20:59 Last Admin: 02/18/22 22:46 Dose: Not Given Documented By: Admin: 02/18/22 08:11 Dose: 500 mg Documented By: Admin: 02/17/22 20:00 Dose: 500 mg Documented By: SAAD Lorazepam (Lorazepam 0.5 Mg Tab) 0.5 mg SL HS PRN PRN Reason: Anxiety Stop: 03/19/22 18:20 Last Admin: 02/17/22 19:59 Dose: 0.5 mg Documented By: SAAD Metoprolol Tartrate (Metoprolol Tartrate 25 Mg Tab) 12.5 mg PO BID [facility] Stop: 03/20/22 20:59 Last Admin: 02/18/22 22:47 Dose: Not Given Documented By: MARLENE Multivitamins (Multivitamin Tab) 1 tab PO QAM [facility] Stop: 03/20/22 08:59 Last Admin: 02/18/22 08:11 Dose: 1 tab Documented By: STEVE Olanzapine (Olanzapine 10 Mg Tab) 10 mg PO HS [facility] Stop: 03/19/22 20:59 Last Admin: 02/18/22 22:47 Dose: Not Given Documented By: Admin: 02/17/22 20:00 Dose: 10 mg Documented By: SAAD Oxycodone HCl (Oxycodone Hcl Ir 5 Mg Tab (Immediate Release)) 5 mg PO BID PRN PRN Reason: moderate pain, 6-10 Stop: 03/03/22 19:54 Last Admin: 02/17/22 20:06 Dose: 5 mg Documented By: SAAD Polyethylene Glycol (Polyethylene (Miralax) 17 Gm Pack) 17 gm PO DAILY IAN Stop: 03/20/22 13:44 Last Admin: 02/18/22 15:00 Dose: 17 gm Documented By: STEVE Tamsulosin HCl (Tamsulosin Hcl 0.4 Mg Cap) 0.4 mg PO QAM IAN Stop: 03/20/22 08:59 Last Admin: 02/18/22 08:12 Dose: 0.4 mg Documented By: STEVE Discontinued Medications Dexamethasone (Dexamethasone 4 Mg Tab) 4 mg PO DAILY IAN Stop: 03/20/22 08:59 Last Admin: 02/18/22 08:11 Dose: 4 mg Documented By: STEVE Gadobutrol (Gadobutrol 65ml Vial) 7.8 ml IV ONCE ONE Stop: 02/17/22 21:37 Last Admin: 02/17/22 21:37 Dose: 7.8 ml Documented By: HARMAN Hydromorphone HCl (Hydromorphone Inj 0.5 Mg/0.5 Ml Syr) 0.5 mg IV NOW STA Stop: 02/18/22 01:07 Last Admin: 02/18/22 01:28 Dose: 0.5 mg Documented By: SAAD Sodium Chloride (Nss 1000ml) 1,000 mls @ 999 mls/hr IV .Q1H1M IAN Stop: 02/17/22 14:29 Last Infusion: 02/17/22 16:06 Dose: 0 mls/hr Documented By: Admin: 02/17/22 14:59 Dose: 999 mls/hr Documented By: FLORIDALMA Sodium Chloride (Nss 1000ml) 1,000 mls @ 80 mls/hr IV .[id number] IAN Stop: 02/18/22 06:50 Last Infusion: 02/18/22 09:01 Dose: 0 mls/hr Documented By: Infusion: 02/17/22 22:00 Dose: 80 mls/hr Documented By: Infusion: 02/17/22 20:24 Dose: 0 mls/hr Documented By: Admin: 02/17/22 18:58 Dose: 80 mls/hr Documented By: SHABNAM Lorazepam 0.25 mg/ Syringe 0.25 mls @ 2 mls/min IV NOW STA Stop: 02/17/22 22:28 Last Admin: 02/17/22 22:48 Dose: 2 mls/min Documented By: SAAD Vancomycin HCl 2,000 mg/ (Sodium Chloride) 540 mls @ 200 mls/hr IV NOW ONE Stop: 02/18/22 17:11 Last Infusion: 02/18/22 17:48 Dose: 0 mls/hr Documented By: Admin: 02/18/22 15:01 Dose: 200 mls/hr Documented By: STEVE Sodium Chloride (Nss) 500 mls @ 500 mls/hr IV .Q1H IAN Stop: 02/18/22 20:59 Last Infusion: 02/18/22 21:34 Dose: 0 mls/hr Documented By: Admin: 02/18/22 20:28 Dose: 500 mls/hr Documented By: MARLENE Lorazepam 0.25 mg/ Syringe 0.25 mls @ 2 mls/min IV 2220 IAN Stop: 02/18/22 22:30 Last Admin: 02/18/22 22:22 Dose: 2 mls/min Documented By: MARLENE Ioversol (Optiray 320 100ml) 94 ml IV ONCE ONE Stop: 02/17/22 15:53 Last Admin: 02/17/22 15:52 Dose: 94 ml Documented By: JM Metoprolol Tartrate (Metoprolol Tartrate 1 Mg/Ml Vial) 2.5 mg IV NOW STA Stop: 02/18/22 20:01 Last Admin: 02/18/22 20:26 Dose: 2.5 mg Documented By: MARLENE Metoprolol Tartrate (Metoprolol Tartrate 1 Mg/Ml Vial) 2.5 mg IV NOW STA Stop: 02/18/22 21:03 Last Admin: 02/18/22 21:34 Dose: 2.5 mg Documented By: MARLENE Description This is a 21 electrode EEG with a single channel dedicated to limited EKG. The electrodes were placed in accordance with the International 10-20 system. REPORT: At the onset of the EEG the patient is in altered mental state. The background is symmetric although disorganized. There is a loss of a normal anterior to posterior gradient. The posterior dominant rhythm is not seen. Background predominantly consists of generalized polymorphic 2-3 Hz delta activities with some superimposed faster frequencies likely artifactual. Photic stimulation does not induce any abnormalities. No stage 2 sleep transients are seen. Interpretation IMPRESSION: This is an abnormal routine EEG in a patient with altered mentation due to severe generalized background slowing suggestive of severe nonspecific encephalopathy. No epileptiform activity is recorded.
--- NOTE | 2022-02-19 10:45 | Procedure Note ---
Procedure Note Date of Service February 19, 2022 Note INTUBATION PROCEDURE NOTE: Dr. Chan Schreiber A time-out was completed verifying correct patient, procedure, site, positioning. Patient was evaluated and required intubation for acute encephalopathy and airway protection. Sedative agent used: 20 mg of etomidate Paralysis agent used: 50 mg of rocuronium Emergent consent was implied given patients rapidly declining clinical status and need for airway protection. Patient's family was called prior to that intubation and they agreed with proceeding with intubation on an urgent basis. Number of attempts: 1 The patient was prepared in the appropriate fashion. Sedation was achieved utilizing etomidate and rocuronium. The patient was easily ventilated using [id number] to achieve adequate oxygenation. An 8.0 Omani endotracheal tube was placed under video laryngoscope guidance to 24 cm at the lip. The stylette was removed and balloon was inflated with 10mL of air. Appropriate Colorimetric change was appreciated. Bilateral breath sounds were heard without air sounds in the abdomen. Patient tolerated the procedure well and there were no immediate complications. Coding CPT Codes Resuscitation - Resuscitation: 88634 Endotracheal Intubation, emergency ([id number]) [facility] [place] Procedure Codes (Charges) Resuscitation Resuscitation: 21790 Endotracheal Intubation, emergency
[2022-02-19] MEDS ORDERED: OPTIRAY 320 100ml IV ONE (10:54)
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
--- NOTE | 2022-02-19 11:18 | CT Scan Report ---
CT head/brain wo con CLINICAL HISTORY: Altered mental status COMPARISON STUDY: 02/18/2022 CT DOSE: TECHNIQUE: Standard CT of the Brain was performed without IV contrast. A dose lowering technique was utilized adhering to the principles of ALARA. FINDINGS: Extraaxial space: There is no evidence for subdural hematoma. There are no extra-axial fluid collecti ons. Ventricles and cisterns: The ventricles are normal in size and configuration. There is no evidence fo r midline shift or mass effect. Parenchyma: There is no subarachnoid or intraparenchymal hemorrhage. There is no evidence for an acut e infarct or cerebral edema. 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 Compared to the previous examination, there is again persistent hypodensity within the right occipit al lobe with a peripheral, approximately 2 cm intermediate density focus best seen on image 14. This again could relate to an old infarct. Additional underlying lesion with surrounding vasogenic edema c annot be completely excluded. There are no gross mass lesions. No definite enhancing mass was demons trated on the previous MRI. However, motion artifact was present. Osseous structures: There is no evidence for an acute fracture. The visualized paranasal sinuses are clear. The mastoid air cells are clear bilaterally. Soft tissues: There is no evidence for focal soft tissue swelling. IMPRESSION: 1. Compared to the previous examination, there is no evidence for acute intracerebral pathology or si gnificant interval change. 2. 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 3. Possible old right occipital infarct versus nonspecific underlying pathology. Again, follow-up MRI may be helpful for further evaluation. ACT 112: Negative or not required by law. Electronically signed by: John Ashton M.D. 02/19/2022 11:15 AM
--- NOTE | 2022-02-19 11:19 | CT Scan Report ---
CT abd pelvis IV con only CLINICAL HISTORY: gi bleed, obtunded TECHNIQUE: Helical axial images of the abdomen and pelvis were obtained and displayed. Automated dose lowering techniques and/or adjustment according to patient size were utilized for this exam. This e xam was performed with intravenous contrast. COMPARISON: Comparison is made to CT abdomen pelvis 02/17/2022 FINDINGS: Lower chest: For findings above the diaphragm, please see CT chest performed same day. Liver: Unremarkable. No focal lesions are seen. Gallbladder and biliary tree: Cholelithiasis is seen without evidence of cholecystitis. No intra- or extrahepatic biliary ductal dilation. Pancreas: Unremarkable, no focal lesions. Spleen: Postsurgical changes are seen along the splenic hilum. Adrenals: Unremarkable. Kidneys and ureters: Unremarkable. Bladder: Perez catheter is seen. Reproductive organs: Prostatomegaly is seen. Bowel: Unremarkable appearance of the bowel. The appendix is normal. Lymph nodes Retroperitoneal: Unremarkable. Pelvic: Unremarkable. Mesenteric: Unremarkable. Peritoneum: Redemonstration of a few residual peritoneal soft tissue nodules compatible with history of B-cell lymphoma which has been treated. Vessels: Unremarkable. Abdominal wall: Bilateral fat-containing inguinal hernias are seen. Partially visualized is a soft ti ssue mass measuring 96 x 44 mm in the region of the right anterior sixth and seventh ribs without und erlying bony destruction. This is unchanged from prior exam. Bones: Degenerative changes in the visualized spine. IMPRESSION: 1. No acute abnormalities are seen. 2. Redemonstration of a soft tissue mass in the anterolateral lower chest/upper abdominal wall measu ring 96 x 44 mm. This is new from 2020 and may represent a new focus of disease in patient with B-rina l lymphoma on chemotherapy, abscess is considered less likely. Correlation with physical exam, outsid e imaging, if available, and oncologic history is recommended. ACT 112: Negative or not required by law. Electronically signed by: Yossi Jaffe M.D. 02/19/2022 11:17 AM
--- NOTE | 2022-02-19 11:23 | CT Scan Report ---
CT angio chest PE protocol CLINICAL HISTORY: PE TECHNIQUE: Multidetector row helical CT of the chest was performed with angiographic protocol. Carr l and sagittal reformations were obtained. Coronal and sagittal MIPS were obtained from the axial sylvia a set and were submitted for review. Automated dose lowering techniques and/or adjustment according to patient size were utilized for this exam. CT DOSE: 1967.70 mGy.cm Comparison: Comparison is made to CT chest 02/17/2022 FINDINGS: Lungs and pleura: Interval worsening of dependent atelectasis. Multifocal groundglass and consolidati ve opacities are new from prior exam. Endotracheal tube is in satisfactory position. Heart and pericardium: Heart size is normal. No pericardial effusion. Vessels: No evidence of pulmonary embolism. Prominence of the pulmonary trunk is again seen. Mediastinum and milagros: Unremarkable. Chest wall and lower neck: Unremarkable. Abdomen: For findings below the diaphragm, please refer to CT of the abdomen dated the same. Bones: Degenerative changes of the thoracic spine. Old healed rib fractures are seen. IMPRESSION: 1. No evidence of pulmonary embolism. 2. Interval development of multifocal groundglass and consolidative opacities compatible with pneumo walter. 3. Worsening atelectasis in the lower lobes. Superimposed pneumonia cannot be entirely excluded. ACT 112: Negative or not required by law. Electronically signed by: Yossi Jaffe M.D. 02/19/2022 11:22 AM
[2022-02-19] MEDS: allopurinoL 300 MG TAB PO SCH (11:31)
[2022-02-19] MEDS: CYANOCOBALAMIN 1000 MCG/ML VIAL IM SCH (11:32)
[2022-02-19] MEDS ORDERED: PROPOFOL IV EMULSION 10 MG/ML 100 ML VIAL IV ONE (11:50)
[2022-02-19 11:54] LABS: Albumin Globulin Ratio 1.4 (0.9-2); Albumin Level 2.9 gm/dl (3.4-5.0); BUN Creatinine Ratio 31.9 (10-20); Bilirubin,Total 0.6 mg/dl (0.2-1.0); Calcium 7.4 mg/dl (8.5-10.1); Creatinine Clr Calc Pharmacy 112.2 ml/min; Est GFR (African American) 121.7 ml/min; Globulin 2.1 gm/dl (2.5-4.0); Potassium 3.6 mmol/L (3.5-5.1)
[2022-02-19 12:00] LABS: Hematocrit (blood only) 25.4 % (40.1-51.0); Hemoglobin 8.4 g/dl (14.0-18.0); Mean Corpuscular Hemoglobin 31.1 pg (25.0-34.0); Mean Corpuscular Hgb Conc 33.1 g/dL (32.0-36.0); Mean Corpuscular Volume 94.1 fL (80.0-100.0); Nucleated RBC % (auto) 7.4 %; Platelet Count 12 K/uL (130-400); RDW Coefficient of Variation 22.9 % (11.5-14.5); RDW Standard Deviation 75.8 fL (36.4-46.3); White Blood Count 4.03 K/ul (4.8-10.8)
[2022-02-19] MEDS ORDERED: METOPROLOL TARTRATE 1 MG/ML VIAL IV SCH ×2 (12:00)
[2022-02-19 12:01] LABS: ALC (manual) 0.48 K/uL (1.2-3.4); ANC (manual) 2.78 K/uL (1.4-6.5); Acanthocytes 2+; Anisocytosis Present; Lymphocytes # (manual) 0.48 K/uL (1.2-3.4); Lymphocytes % (manual) 12 %; Metamyelocytes # (manual) 0.28 K/uL (0-0); Metamyelocytes % (manual) 7 %; Monocytes # (manual) 0.24 K/uL (0.24-0.82); Monocytes % (manual) 6 %; Myelocytes # (manual) 0.28 K/uL (0-0); Myelocytes % (manual) 7 %; Neutrophils # (manual) 2.78 K/uL (1.4-6.5); Neutrophils % (manual) 69 %; Platelet Estimate Signific. Decreased (Normal); Schistocytes 1+; Tear Drop Cells 2+
--- NOTE | 2022-02-19 12:11 | Neurology Progress Note ---
Date of Service February 19, 2022 Assessment & Plan (1) Acute metabolic encephalopathy: Plan: 1. r/o out infectious source- immuncompromised 2. unclear if medication were being taken correctly 3. fall precautions 4. PT/OT for discharge needs 5. if no infectious source found may need an LP 6. right hip pain would evaluate 7. ammonia 30 biliruben checked 8. MRI no acute findings. previous surgery lesions right occiptal and frontal lobes. (2) Immunocompromised: Plan: 1. as above Admission and Anticipated Discharge Date Admission Date: February 17, 2022 Supervising Physician Co-Signing Physician Notes Patient discussed with Lakeisha Roque PA-C and agree with recommendations at noted below. Routine EEG reviewed. No epilpetiform activity was seen. Encephalopathy unclear. ? infection Vs chemo induced. Continue supportive management. 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 His last treatment was on 01/31/2022. He came to the hospital because he couldn't walk. Family at bedside states he had a similar episode in past when he had mass in brain. He was having a harder time walking and this morning she helped him go to bathroom and after he sat down he couldn't get up and has increased confusion over the last few days. EMS had a concern maybe he took extra oxycodone and ativan. He takes 1mg ativan at night. He can take it up to 3x a day. He took one this morning because of pain. He also took 2 oxycodone this morning. Typically he takes two tablets twice a day. He has been coughing, dry. Overall appetite has been decreased and decreased fluid intake the past 2-3 days. No apparent focal weakness or facial droop. He has had a bit of slurred speech and more difficult to understand. His sister reported he was at baseline 2 days ago but unable to say her name. complaining of right hip pain. denies CP, SOB, abdominal pain, N, V. Currently he is intubated and not on sedation but unreponsive. He is no multiple antibiotics and antifungals. he is receiving plts due to his low plt count anticipating an LP. Review of Systems Review of Systems: Unobtainable due to cognitive status and Unobtainable due to endotracheal tube Physical Exam Physical Exam: Physical Exam: gen: intubated Results & Data ([facility]) Vital Signs (Past 12 Hours) Vital Signs Temp Pulse Pulse Resp BP BP Pulse Ox 02/19/22 11:53 126 H 141/96 H 02/19/22 11:06 91 H 20 99 02/19/22 08:10 02/19/22 07:44 126 H 02/19/22 07:39 36.6 C 133 H 30 H 115/77 92 02/19/22 04:05 37.1 C 126 H 21 93/66 L 92 02/19/22 00:53 119 H O2 Del Method O2 Flow Rate FiO2 02/19/22 11:53 02/19/22 11:06 75 02/19/22 08:10 Oxymask 5 02/19/22 07:44 02/19/22 07:39 Oxymask 6 02/19/22 04:05 Oxymask 6 02/19/22 00:53 Laboratory Results Abnormal lab results 02/18/22 02/18/22 02/18/22 Range/Units 13:59 13:59 13:59 WBC (4.8-10.8) K/ul RBC 3.17 L (4.63-6.08) M/uL Hgb 10.0 L (14.0-18.0) g/dl Hct 30.3 L (40.1-51.0) % RDW Std Deviation 77.4 H (36.4-46.3) fL RDW Coeff of Tavo 23.0 H (11.5-14.5) % Plt Count 21 L* (130-400) K/uL Absolute Nucleated RBC 0.35 H (0-0) K/uL Lymphocytes # (Manual) 0.77 L (1.2-3.4) K/uL Total Abs Lymphocytes 0.77 L (1.2-3.4) K/uL Monocytes # (Manual) 0.11 L (0.24-0.82) K/uL Metamyelocytes # (Man) 1.09 H (0-0) K/uL Myelocytes # (Manual) 0.11 H (0-0) K/uL Promyelocytes # (Man) 0.11 H (0-0) K/uL Blast Cells # (Man) (0-0) K/uL Platelet Estimate Decreased L (Normal) ABG pH (7.35-7.45) ABG pCO2 (35-46) mmHg ABG pO2 (80-95) mmHg ABG O2 Saturation (90-95) % ABG Base Excess (-9-1.8) mEq/L Sodium 133 L (136-145) mmol/L BUN/Creatinine Ratio 24.1 H (10-20) Glucose 164 H (70-99(Fasting)) mg/dl Calcium (8.5-10.1) mg/dl AST 103 H (13-39) U/L ALT 65 H (7-52) U/L Alkaline Phosphatase 160 H (34-104) U/L Total Protein (6.0-8.3) gm/dl Albumin (3.4-5.0) gm/dl Globulin (2.5-4.0) gm/dl Vitamin B12 170 L (180-914) pg/ml Urine Protein (Negative) Urine WBC (Auto) (0-5) /hpf U Hyaline Cast (Auto) (0-5) /lpf U Epithel Cells (Auto) (0-5) /lpf 02/18/22 02/18/22 02/19/22 Range/Units 15:25 21:07 06:04 WBC 4.21 L (4.8-10.8) K/ul RBC 2.82 L (4.63-6.08) M/uL Hgb 8.7 L (14.0-18.0) g/dl Hct 26.6 L (40.1-51.0) % RDW Std Deviation 77.2 H (36.4-46.3) fL RDW Coeff of Tavo 22.7 H (11.5-14.5) % Plt Count 14 L* (130-400) K/uL Absolute Nucleated RBC 0.32 H (0-0) K/uL Lymphocytes # (Manual) 0.88 L (1.2-3.4) K/uL Total Abs Lymphocytes 0.88 L (1.2-3.4) K/uL Monocytes # (Manual) 0.04 L (0.24-0.82) K/uL Metamyelocytes # (Man) 0.34 H (0-0) K/uL Myelocytes # (Manual) 0.21 H (0-0) K/uL Promyelocytes # (Man) 0.13 H (0-0) K/uL Blast Cells # (Man) 0.08 H (0-0) K/uL Platelet Estimate (Normal) ABG pH 7.56 H* (7.35-7.45) ABG pCO2 26 L (35-46) mmHg ABG pO2 97 H (80-95) mmHg ABG O2 Saturation 97.8 H (90-95) % ABG Base Excess 2.3 H (-9-1.8) mEq/L Sodium (136-145) mmol/L BUN/Creatinine Ratio (10-20) Glucose (70-99(Fasting)) mg/dl Calcium (8.5-10.1) mg/dl AST (13-39) U/L ALT (7-52) U/L Alkaline Phosphatase (34-104) U/L Total Protein (6.0-8.3) gm/dl Albumin (3.4-5.0) gm/dl Globulin (2.5-4.0) gm/dl Vitamin B12 (180-914) pg/ml Urine Protein 1+ H (Negative) Urine WBC (Auto) 5-10 H (0-5) /hpf U Hyaline Cast (Auto) 5-10 H (0-5) /lpf U Epithel Cells (Auto) >30 H (0-5) /lpf 02/19/22 02/19/22 02/19/22 Range/Units 06:04 11:13 11:13 WBC 4.03 L (4.8-10.8) K/ul RBC 2.70 L (4.63-6.08) M/uL Hgb 8.4 L (14.0-18.0) g/dl Hct 25.4 L (40.1-51.0) % RDW Std Deviation 75.8 H (36.4-46.3) fL RDW Coeff of Tavo 22.9 H (11.5-14.5) % Plt Count 12 L* (130-400) K/uL Absolute Nucleated RBC 0.30 H (0-0) K/uL Lymphocytes # (Manual) 0.48 L (1.2-3.4) K/uL Total Abs Lymphocytes 0.48 L (1.2-3.4) K/uL Monocytes # (Manual) (0.24-0.82) K/uL Metamyelocytes # (Man) 0.28 H (0-0) K/uL Myelocytes # (Manual) 0.28 H (0-0) K/uL Promyelocytes # (Man) (0-0) K/uL Blast Cells # (Man) (0-0) K/uL Platelet Estimate Signific. Decreased L (Normal) ABG pH (7.35-7.45) ABG pCO2 (35-46) mmHg ABG pO2 (80-95) mmHg ABG O2 Saturation (90-95) % ABG Base Excess (-9-1.8) mEq/L Sodium 134 L 134 L (136-145) mmol/L BUN/Creatinine Ratio 31.4 H 31.9 H (10-20) Glucose 116 H 148 H (70-99(Fasting)) mg/dl Calcium 8.0 L 7.4 L (8.5-10.1) mg/dl AST 80 H 69 H (13-39) U/L ALT 65 H 60 H (7-52) U/L Alkaline Phosphatase 201 H 192 H (34-104) U/L Total Protein 5.6 L 5.0 L (6.0-8.3) gm/dl Albumin 3.1 L 2.9 L (3.4-5.0) gm/dl Globulin 2.1 L (2.5-4.0) gm/dl Vitamin B12 (180-914) pg/ml Urine Protein (Negative) Urine WBC (Auto) (0-5) /hpf U Hyaline Cast (Auto) (0-5) /lpf U Epithel Cells (Auto) (0-5) /lpf Diagnostic Findings CT chest-No evidence of pulmonary embolism. Interval development of multifocal groundglass and consolidative opacities compatible with pneumonia. Worsening atelectasis in the lower lobes. Superimposed pneumonia cannot be entirely excluded. CT abd/pelvis-No acute abnormalities are seen. Redemonstration of a soft tissue mass in the anterolateral lower chest/upper abdominal wall measuring 96 x 44 mm. This is new from 2020 and may represent a new focus of disease in patient with B-cell lymphoma on chemotherapy, previously biopsed lymphoma
[2022-02-19] MEDS: AMPICILLIN 2,000 MG in SODIUM CHLOR 0.9% AD-VAN 100 ML IV SCH ×3 (12:39→21:14)
[2022-02-19 12:46] LABS: Appearance Urine Cloudy (Clear); Bilirubin Urine Negative (Negative); Blood Urine 3+ (Negative); Color Urine Red; Glucose Urine UA Negative (Negative); Ketones Urine Trace (Negative); Leukocyte Esterase Urine Negative (Negative); Nitrite Urine Negative (Negative); Protein Urine 3+ (Negative); Specific Gravity Urine 1.025 (1.000-1.030); Urobilinogen Urine Negative (Negative)
[2022-02-19 12:51] LABS: Epithelial Cell Urine 0-5 /lpf (0-5); RBC Urine >30 /hpf (0-4)
[2022-02-19 12:54] LABS: Bacteria Urine Negative (Negative)
--- NOTE | 2022-02-19 13:01 | Hospitalist Progress Note ---
Date of Service February 19, 2022 Assessment & Plan (1) Acute metabolic encephalopathy: (2) Thrombocytopenia: (3) Lymphoma: (4) Hypoxia: (5) Immunocompromised: Plan Acute metabolic encephalopathy-Unclear etiology -Workup so far (MRI brain, CT head, CBC and BMP, UA, UDS, ammonia, tick panel unrevealing). Blood clx negative. Repeat CT head negative. - EEG today 02/19 with no epileptiform activity but abnormal with altered mentation due to severe generalized background slowing suggestive of severe nonspecific encephalopathy - Worsening today and intubated urgently today for airway protection and transferred to ICU- PanCT with suspected aspiration PNA but otherwise no source of infection- does have concerning finding for metastatic deposit from lymphoma to abdominal wall - Resp biofire positive for adenovirus - Remains on empiric ABx- further management per system analyst - Neuro following- recommendations noted - Might need LP but currently precluded due to low plt count Thrombocytopenia- eliquis remains on hold -worsening 43->23->21->14->12; likely from recent chemo - Eliquis on hold - Getting Plt transfusion per system analyst IJ thrombosis 01/22- Was on eliquis but on hold due to thrombocytopenia- further management per system analyst Sinus Tachycardia- on iv lopressor and ivf Hematuria- likely traumatic from baez placement. Monitor. Aggressive metastatic lymphoma-repeat imaging does not show recurrence, last chemotherapy 2 weeks ago. Patient sees Dr Atkins who I spoke to this morning regarding overall plan of care. Unclear but his lymphoma and chemo might be contributing to his encephalopathy. He recommended plt transfusion for plt count <10k or if bleeding. He did not recommend transfer to tertiary center as they would not have much to offer him at this point. Recommended continuing supportive management as we are doing now. DVT ppx-SCDs for now, no AC due to thrombocytopenia currently Dispo- Transfer to ICU for intubation for airway protection Update- Spoke to the primary contact sister Roseanna- she confirmed full code status and continuing aggressive care Full code Admission and Anticipated Discharge Date Admission Date: February 17, 2022 Subjective He is very lethargic today, unlike 2 days back when I saw him in the emergency. ROS limited due to his encephalopathy. No fever. No vomiting. Physical Exam Physical Exam: General: Lethargic, on oxymask with labored breathing HEENT: PÉREZ Chest: Fair breath sounds anteriorly CVS: Tachycardic, normal heart sounds, no murmur Abdomen: Soft, non tender, normal bowel sounds Neuro: Lethargic, unresponsive to verbal or noxious stimuli, not following any command Extremities: No edema Baez with hematuria Results & Data Results & Data ([facility]) Vital Signs (Past 12 Hours) Vital Signs Temp Pulse Pulse Resp BP BP Pulse Ox 02/19/22 12:32 02/19/22 12:30 102/80 02/19/22 12:30 37.5 C 113 H 22 99 02/19/22 12:25 98/80 L 02/19/22 12:25 37.5 C 115 H 22 98 02/19/22 12:20 105/78 02/19/22 12:20 37.5 C 114 H 21 98 02/19/22 12:15 86/68 L 02/19/22 12:15 37.5 C 114 H 23 98 02/19/22 12:10 37.5 C 109 H 21 97 02/19/22 12:10 89/64 L 02/19/22 12:09 37.5 C 107 H 22 97 02/19/22 12:09 91/67 L 02/19/22 12:08 86/66 L 02/19/22 12:08 37.5 C 109 H 23 97 02/19/22 12:07 92/65 L 02/19/22 12:07 37.5 C 110 H 23 97 02/19/22 12:06 83/65 L 02/19/22 12:06 37.5 C 108 H 21 97 02/19/22 12:05 83/54 L 02/19/22 12:05 37.5 C 107 H 21 97 02/19/22 12:04 85/60 L 02/19/22 12:04 37.5 C 108 H 22 96 02/19/22 12:00 37.5 C 105 H 22 96 02/19/22 12:00 80/58 L 02/19/22 11:59 82/54 L 02/19/22 11:59 37.5 C 110 H 22 96 02/19/22 11:01 131 H 20 02/19/22 11:01 141/96 H 02/19/22 11:00 132 H 12 02/19/22 12:00 02/19/22 11:53 126 H 141/96 H 02/19/22 11:06 91 H 20 99 02/19/22 08:10 02/19/22 07:44 126 H 02/19/22 07:39 36.6 C 133 H 30 H 115/77 92 02/19/22 04:05 37.1 C 126 H 21 93/66 L 92 O2 Del Method O2 Flow Rate FiO2 02/19/22 12:32 75 02/19/22 12:30 02/19/22 12:30 02/19/22 12:25 02/19/22 12:25 02/19/22 12:20 02/19/22 12:20 02/19/22 12:15 02/19/22 12:15 02/19/22 12:10 02/19/22 12:10 02/19/22 12:09 02/19/22 12:09 02/19/22 12:08 02/19/22 12:08 02/19/22 12:07 02/19/22 12:07 02/19/22 12:06 02/19/22 12:06 02/19/22 12:05 02/19/22 12:05 02/19/22 12:04 02/19/22 12:04 02/19/22 12:00 02/19/22 12:00 02/19/22 11:59 02/19/22 11:59 02/19/22 11:01 02/19/22 11:01 02/19/22 11:00 02/19/22 12:00 Mechanical Vent 02/19/22 11:53 02/19/22 11:06 75 02/19/22 08:10 Oxymask 5 02/19/22 07:44 02/19/22 07:39 Oxymask 6 02/19/22 04:05 Oxymask 6 Laboratory Results Short CBC 02/18/22 02/19/22 02/19/22 Range/Units 13:59 06:04 11:13 WBC 5.47 4.21 L 4.03 L (4.8-10.8) K/ul Hgb 10.0 L 8.7 L 8.4 L (14.0-18.0) g/dl Hct 30.3 L 26.6 L 25.4 L (40.1-51.0) % Plt Count 21 L* 14 L* 12 L* (130-400) K/uL BMP 02/18/22 02/19/22 02/19/22 13:59 06:04 11:13 Sodium 133 L 134 L 134 L Potassium 4.1 3.9 3.6 Chloride 100 104 105 Carbon Dioxide 23 23 22 BUN 20 22 23 Creatinine 0.83 0.70 0.72 Glucose 164 H 116 H 148 H Calcium 8.5 8.0 L 7.4 L Liver Function 02/18/22 02/19/22 02/19/22 Range/Units 13:59 06:04 11:13 Total Bilirubin 0.7 0.7 0.6 (0.2-1.0) mg/dl AST 103 H 80 H 69 H (13-39) U/L ALT 65 H 65 H 60 H (7-52) U/L Alkaline Phosphatase 160 H 201 H 192 H (34-104) U/L Albumin 3.5 3.1 L 2.9 L (3.4-5.0) gm/dl Urine 02/18/22 02/18/22 02/19/22 Range/Units 13:59 15:25 12:15 Urine Color Dark Yellow Red Urine Appearance Clear Cloudy A (Clear) Urine pH Cancelled 5.5 6.0 Ur Specific [place] Cancelled 1.021 1.025 Urine Protein 1+ H 3+ H (Negative) Urine Glucose (UA) Negative Negative (Negative) Diagnostic Findings Chest X-Ray 02/19/22 09:37 XR chest 1V portable CLINICAL HISTORY: hypoxia TECHNIQUE: Single frontal radiograph of the chest was obtained. Comparison: Comparison is made to chest radiograph 02/17/2022 FINDINGS: A port catheter is seen. The cardiomediastinal silhouette is stable. Bilateral lower lung predominant airspace opacities are seen. No evidence of pleural effusion or pneumothorax. IMPRESSION: Bilateral lower lung predominant airspace opacities which may represent atelectasis, pneumonia, and/or aspiration. ACT 112: Negative or not required by law. Electronically signed by: Yossi Jaffe M.D. 02/19/2022 10:[address] 02/19/22 10:36 CT head/brain wo con CLINICAL HISTORY: Altered mental status COMPARISON STUDY: 02/18/2022 CT DOSE: TECHNIQUE: Standard CT of the Brain was performed without IV contrast. A dose lowering technique was utilized adhering to the principles of ALARA. FINDINGS: Extraaxial space: There is no evidence for subdural hematoma. There are no extra-axial fluid collections. Ventricles and cisterns: The ventricles are normal in size and configuration. There is no evidence for midline shift or mass effect. Parenchyma: There is no subarachnoid or intraparenchymal hemorrhage. There is no evidence for an acute infarct or cerebral edema. 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 Compared to the previous examination, there is again persistent hypodensity within the right occipital lobe with a peripheral, approximately 2 cm intermediate density focus best seen on image 14. This again could relate to an old infarct. Additional underlying lesion with surrounding vasogenic edema cannot be completely excluded. There are no gross mass lesions. No definite enhancing mass was demonstrated on the previous MRI. However, motion artifact was present. Osseous structures: There is no evidence for an acute fracture. The visualized paranasal sinuses are clear. The mastoid air cells are clear bilaterally. Soft tissues: There is no evidence for focal soft tissue swelling. IMPRESSION: 1. Compared to the previous examination, there is no evidence for acute intracerebral pathology or significant interval change. 2. 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 3. Possible old right occipital infarct versus nonspecific underlying pathology. Again, follow-up MRI may be helpful for further evaluation. ACT 112: Negative or not required by law. Electronically signed by: John Ashton M.D. 02/19/2022 11:15 AM Abdomen/Pelvis CT 02/19/22 10:38 CT abd pelvis IV con only CLINICAL HISTORY: gi bleed, obtunded TECHNIQUE: Helical axial images of the abdomen and pelvis were obtained and displayed. Automated dose lowering techniques and/or adjustment according to patient size were utilized for this exam. This exam was performed with intravenous contrast. COMPARISON: Comparison is made to CT abdomen pelvis 02/17/2022 FINDINGS: Lower chest: For findings above the diaphragm, please see CT chest performed same day. Liver: Unremarkable. No focal lesions are seen. Gallbladder and biliary tree: Cholelithiasis is seen without evidence of cholecystitis. No intra- or extrahepatic biliary ductal dilation. Pancreas: Unremarkable, no focal lesions. Spleen: Postsurgical changes are seen along the splenic hilum. Adrenals: Unremarkable. Kidneys and ureters: Unremarkable. Bladder: Baez catheter is seen. Reproductive organs: Prostatomegaly is seen. Bowel: Unremarkable appearance of the bowel. The appendix is normal. Lymph nodes Retroperitoneal: Unremarkable. Pelvic: Unremarkable. Mesenteric: Unremarkable. Peritoneum: Redemonstration of a few residual peritoneal soft tissue nodules compatible with history of B-cell lymphoma which has been treated. Vessels: Unremarkable. Abdominal wall: Bilateral fat-containing inguinal hernias are seen. Partially visualized is a soft tissue mass measuring 96 x 44 mm in the region of the right anterior sixth and seventh ribs without underlying bony destruction. This is unchanged from prior exam. Bones: Degenerative changes in the visualized spine. IMPRESSION: 1. No acute abnormalities are seen. 2. Redemonstration of a soft tissue mass in the anterolateral lower chest/upper abdominal wall measuring 96 x 44 mm. This is new from 2020 and may represent a new focus of disease in patient with B-cell lymphoma on chemotherapy, abscess is considered less likely. Correlation with physical exam, outside imaging, if available, and oncologic history is recommended. ACT 112: Negative or not required by law. Electronically signed by: Yossi Jaffe M.D. 02/19/2022 11:17 AM Chest CTA 02/19/22 10:44 CT angio chest PE protocol CLINICAL HISTORY: PE TECHNIQUE: Multidetector row helical CT of the chest was performed with angiographic protocol. Coronal and sagittal reformations were obtained. Coronal and sagittal MIPS were obtained from the axial data set and were submitted for review. Automated dose lowering techniques and/or adjustment according to patient size were utilized for this exam. CT DOSE: 1967.70 mGy.cm Comparison: Comparison is made to CT chest 02/17/2022 FINDINGS: Lungs and pleura: Interval worsening of dependent atelectasis. Multifocal groundglass and consolidative opacities are new from prior exam. Endotracheal tube is in satisfactory position. Heart and pericardium: Heart size is normal. No pericardial effusion. Vessels: No evidence of pulmonary embolism. Prominence of the pulmonary trunk is again seen. Mediastinum and milagros: Unremarkable. Chest wall and lower neck: Unremarkable. Abdomen: For findings below the diaphragm, please refer to CT of the abdomen dated the same. Bones: Degenerative changes of the thoracic spine. Old healed rib fractures are seen. IMPRESSION: 1. No evidence of pulmonary embolism. 2. Interval development of multifocal groundglass and consolidative opacities compatible with pneumonia. 3. Worsening atelectasis in the lower lobes. Superimposed pneumonia cannot be entirely excluded. ACT 112: Negative or not required by law. Electronically signed by: Yossi Jaffe M.D. 02/19/2022 11:22 AM Medications Administered Current Inpatient Medications Acyclovir (Acyclovir 400 Mg Tab) 400 mg PO BID [facility] Stop: 03/19/22 20:59 Last Admin: 02/18/22 22:46 Dose: Not Given Apixaban (Apixaban 5 Mg Tablet) 5 mg PO BID [facility] Stop: 03/19/22 20:59 Last Admin: 02/18/22 08:11 Dose: 5 mg Calcium Carbonate (Calcium Carbonate 500 Mg Chewable Tab) 500 mg PO BID PRN PRN Reason: heartburn Stop: 03/19/22 18:40 Cyanocobalamin (Cyanocobalamin 1000 Mcg/Ml Vial) 1,000 mcg IM QAM [facility] Stop: 02/26/22 08:59 Last Admin: 02/19/22 11:32 Dose: Not Given Dexamethasone (Dexamethasone 4 Mg Tab) 4 mg PO BID [facility] Stop: 03/20/22 20:59 Last Admin: 02/18/22 22:46 Dose: Not Given Famotidine (Famotidine 20 Mg Tab) 20 mg PO BID [facility] Stop: 03/19/22 20:59 Last Admin: 02/18/22 22:46 Dose: Not Given Heparin Sodium (Porcine) (Heparin 100 Unit/Ml 5ml Flush) 5 ml FLUSH PRN PRN PRN Reason: Flush Stop: 03/20/22 16:12 Cefepime HCl 2,000 mg/ Syringe 20 mls @ 5 mls/min IV Q8H [facility]; Protocol Stop: 02/20/22 13:59 Last Admin: 02/19/22 05:07 Dose: 5 mls/min Vancomycin HCl 1,250 mg/ (Sodium Chloride) 275 mls @ 200 mls/hr IV Q12H [facility] Stop: 02/21/22 00:00 Last Admin: 02/19/22 11:55 Dose: 200 mls/hr Dexamethasone 4 mg/ Syringe 1 mls @ 1 mls/min IV Q12 [facility] Stop: 03/21/22 08:59 Last Admin: 02/19/22 09:27 Dose: 1 mls/min Pantoprazole Sodium 40 mg/ (Syringe) 10 mls @ 5 mls/min IV BID [facility] Stop: 03/21/22 08:59 Last Admin: 02/19/22 09:26 Dose: 5 mls/min Dextrose/Sodium Chloride (D5w And 1/2nss) 1,000 mls @ 80 mls/hr IV .[id number] [facility] Stop: 02/20/22 08:29 Last Admin: 02/19/22 09:32 Dose: 80 mls/hr Ampicillin Sodium 2,000 mg/ (Sodium Chloride) 100 mls @ 200 mls/hr IV Q4H [facility] Stop: 03/01/22 12:29 Last Admin: 02/19/22 12:39 Dose: 200 mls/hr Acyclovir Sodium 720 mg/ (Dextrose) 264.4 mls @ 250 mls/hr IV Q8H [facility]; Protocol Stop: 03/01/22 17:59 Levetiracetam (Levetiracetam 500 Mg Tab) 500 mg PO BID [facility] Stop: 03/19/22 20:59 Last Admin: 02/18/22 22:46 Dose: Not Given Lorazepam (Lorazepam 0.5 Mg Tab) 0.5 mg SL HS PRN PRN Reason: Anxiety Stop: 03/19/22 18:20 Last Admin: 02/17/22 19:59 Dose: 0.5 mg Magnesium Hydroxide (Magnesium Hydroxide Susp 30 Ml Udc) 30 ml PO Q12H PRN PRN Reason: Constipation Stop: 03/19/22 18:20 Metoprolol Tartrate (Metoprolol Tartrate 25 Mg Tab) 12.5 mg PO BID [facility] Stop: 03/20/22 20:59 Last Admin: 02/18/22 22:47 Dose: Not Given Metoprolol Tartrate (Metoprolol Tartrate 1 Mg/Ml Vial) 2.5 mg IV Q6 [facility] Stop: 03/21/22 11:59 Last Admin: 02/19/22 11:53 Dose: 2.5 mg Miscellaneous Information (Vancomycin Consult Active) 1 each N/A UD PRN PRN Reason: Consult Stop: 03/20/22 13:54 Multivitamins (Multivitamin Tab) 1 tab PO QAM [facility] Stop: 03/20/22 08:59 Last Admin: 02/18/22 08:11 Dose: 1 tab Olanzapine (Olanzapine 10 Mg Tab) 10 mg PO HS [facility] Stop: 03/19/22 20:59 Last Admin: 02/18/22 22:47 Dose: Not Given Ondansetron HCl (Ondansetron Inj 2 Mg/Ml 2 Ml Vial) 4 mg IV Q6H PRN PRN Reason: Nausea Stop: 03/19/22 18:20 Oxycodone HCl (Oxycodone Hcl Ir 5 Mg Tab (Immediate Release)) 5 mg PO BID PRN PRN Reason: moderate pain, 6-10 Stop: 03/03/22 19:54 Last Admin: 02/17/22 20:06 Dose: 5 mg Polyethylene Glycol (Polyethylene (Miralax) 17 Gm Pack) 17 gm PO DAILY [facility] Stop: 03/20/22 13:44 Last Admin: 02/18/22 15:00 Dose: 17 gm Tamsulosin HCl (Tamsulosin Hcl 0.4 Mg Cap) 0.4 mg PO QAM [facility] Stop: 03/20/22 08:59 Last Admin: 02/18/22 08:12 Dose: 0.4 mg
[2022-02-19 13:22] LABS: iSTAT Allen Test Pass; iSTAT Art Bld Gas pCO2 Correct 29 mmHg (35-46); iSTAT Art Bld Gas pH Corrected 7.469 (7.35-7.45); iSTAT Arterial Blood Gas HCO3 21 meg/L (19-24); iSTAT Arterial Blood Gas pCO2 29 mmHg (35-46); iSTAT Arterial Blood Gas pH 7.47 (7.35-7.45); iSTAT Arterial Blood Gas pO2 213 mmHg (80-95); iSTAT Arterial Blood Gas pO2 C 214; iSTAT Carbon Dioxide 22 mmol/L (24-31); iSTAT FiO2 75 %; iSTAT Hematocrit 22 % (42-52); iSTAT Hemoglobin 7.5 g/dl (14.0-18.0); iSTAT Potassium 3.7 mmol/L (3.3-5.0); iSTAT Site R Radial; iSTAT Sodium 132 mmol/L (135-144)
[2022-02-19 13:30] LABS: Bordetella parapertussis PCR Not Detected (NotDetected); Bordetella pertussis PCR Not Detected (NotDetected); Chlamydia pneumoniae PCR Not Detected (NotDetected); Coronavirus 229E PCR Not Detected (NotDetected); Coronavirus CoV-2 (COVID19)PCR Not Detected (NotDetected); Coronavirus HKU1 PCR Not Detected (NotDetected); Coronavirus NL63 PCR Not Detected (NotDetected); Coronavirus OC43PCR Not Detected (NotDetected); Human Metapneumovirus PCR Not Detected (NotDetected); Influenza A PCR Not Detected (NotDetected); Influenza B PCR Not Detected (NotDetected); Mycoplasma pneumoniae PCR Not Detected (NotDetected); Parainfluenza Virus 1 PCR Not Detected (NotDetected); Parainfluenza Virus 2 PCR Not Detected (NotDetected); Parainfluenza Virus 3 PCR Not Detected (NotDetected); Parainfluenza Virus 4 PCR Not Detected (NotDetected); Respiratory Syncytial VirusPCR Not Detected (NotDetected); Rhinovirus/Enterovirus PCR Not Detected (NotDetected)
[2022-02-19 13:34] LABS: Adenovirus PCR DETECTED (NotDetected)
[2022-02-19 13:47] LABS: Fibrinogen 595 mg/dl (184-400)
[2022-02-19] MEDS ORDERED: AZITHROMYCIN 500 MG in DEXTROSE 5% 250 ML IV STA (13:48)
[2022-02-19] MEDS: SODIUM CHLORIDE 0.9% 1000ML 1,000 ML IV SCH (13:55)
[2022-02-19] MEDS ORDERED: CASPOFUNGIN 70 MG in SODIUM CHLORIDE 0.9% 250 ML IV STA (13:56)
[2022-02-19] MEDS: metroNIDAZOLE 500 MG/100 ML BAG IV SCH ×2 (16:16→21:50)
[2022-02-19] MEDS ORDERED: ETOMIDATE 2 MG/ML 20 ML VIAL IV ONE (16:59)
[2022-02-19] MEDS ORDERED: ROCURONIUM BROMIDE 10 MG/ML 5 ML VIAL IV ONE (16:59)
[2022-02-19] MEDS: DEXTROSE 5% IV SCH (17:30)
[2022-02-19] MEDS: ACYCLOVIR SOD IV SCH (17:30)
[2022-02-19 17:57] LABS: Hematocrit (blood only) 22.5 % (40.1-51.0); Hemoglobin 7.5 g/dl (14.0-18.0); Mean Corpuscular Hemoglobin 31.1 pg (25.0-34.0); Mean Corpuscular Hgb Conc 33.3 g/dL (32.0-36.0); Mean Corpuscular Volume 93.4 fL (80.0-100.0); Mean Platelet Volume 11.5 fL (9.4-12.4); Nucleated RBC # (auto) 0.27 K/uL (0-0); Nucleated RBC % (auto) 6.7 %; Platelet Count 39 K/uL (130-400); RDW Coefficient of Variation 22.5 % (11.5-14.5); RDW Standard Deviation 75.5 fL (36.4-46.3); Red Blood Count 2.41 M/uL (4.63-6.08); White Blood Count 4.02 K/ul (4.8-10.8)
[2022-02-19 18:39] LABS: ALC (manual) 0.48 K/uL (1.2-3.4); ANC (manual) 3.14 K/uL (1.4-6.5); Eosinophils # (manual) 0.04 K/uL (0-0.50); Eosinophils % (manual) 1 %; Lymphocytes # (manual) 0.48 K/uL (1.2-3.4); Lymphocytes % (manual) 12 %; Metamyelocytes % (manual) 5 %; Monocytes # (manual) 0.04 K/uL (0.24-0.82); Monocytes % (manual) 1 %; Myelocytes # (manual) 0.12 K/uL (0-0); Myelocytes % (manual) 3 %; Neutrophils # (manual) 3.14 K/uL (1.4-6.5); Neutrophils % (manual) 78 %; Schistocytes 1+; Tear Drop Cells 1+
[2022-02-19 21:52] LABS: iSTAT Allen Test Pass; iSTAT Art Bld Gas pCO2 Correct 26 mmHg (35-46); iSTAT Art Bld Gas pH Corrected 7.531 (7.35-7.45); iSTAT Arterial Blood Gas HCO3 22 meg/L (19-24); iSTAT Arterial Blood Gas pCO2 26 mmHg (35-46); iSTAT Arterial Blood Gas pH 7.53 (7.35-7.45); iSTAT Arterial Blood Gas pO2 89 mmHg (80-95); iSTAT Arterial Blood Gas pO2 C 90; iSTAT Carbon Dioxide 22 mmol/L (24-31); iSTAT FiO2 30 %; iSTAT Hematocrit 18 % (42-52); iSTAT Hemoglobin 6.1 g/dl (14.0-18.0); iSTAT Potassium 3.7 mmol/L (3.3-5.0); iSTAT Site L Radial; iSTAT Sodium 134 mmol/L (135-144)
[2022-02-20 00:22] LABS: Hematocrit (blood only) 20.9 % (40.1-51.0); White Blood Count 3.78 K/ul (4.8-10.8)
[2022-02-20 00:23] LABS: Mean Platelet Volume 10.9 fL (9.4-12.4); Platelet Count 51 K/uL (130-400)
[2022-02-20] MEDS: AMPICILLIN 2,000 MG in SODIUM CHLOR 0.9% AD-VAN 100 ML IV SCH ×5 (00:46→16:51)
[2022-02-20 01:02] LABS: ALC (manual) 0.72 K/uL (1.2-3.4); ANC (manual) 2.65 K/uL (1.4-6.5); Lymphocytes # (manual) 0.72 K/uL (1.2-3.4); Lymphocytes % (manual) 19 %; Mean Corpuscular Hemoglobin 31.8 pg (25.0-34.0); Mean Corpuscular Hgb Conc 33.5 g/dL (32.0-36.0); Metamyelocytes # (manual) 0.26 K/uL (0-0); Metamyelocytes % (manual) 7 %; Monocytes # (manual) 0.11 K/uL (0.24-0.82); Monocytes % (manual) 3 %; Myelocytes # (manual) 0.04 K/uL (0-0); Myelocytes % (manual) 1 %; Neutrophils # (manual) 2.65 K/uL (1.4-6.5); Neutrophils % (manual) 70 %; Nucleated RBC # (auto) 0.39 K/uL (0-0); Nucleated RBC % (auto) 10.3 %; Platelet Estimate Decreased (Normal); RDW Coefficient of Variation 22.6 % (11.5-14.5); RDW Standard Deviation 76.9 fL (36.4-46.3); Schistocytes 1+; Tear Drop Cells 1+
[2022-02-20] MEDS: ACYCLOVIR SOD IV SCH ×2 (01:30→10:00)
[2022-02-20] MEDS: DEXTROSE 5% IV SCH ×2 (01:30→10:00)
[2022-02-20 03:35] LABS: iSTAT Allen Test Pass; iSTAT Art Bld Gas pCO2 Correct 26 mmHg (35-46); iSTAT Art Bld Gas pH Corrected 7.517 (7.35-7.45); iSTAT Arterial Blood Gas HCO3 22 meg/L (19-24); iSTAT Arterial Blood Gas pCO2 26 mmHg (35-46); iSTAT Arterial Blood Gas pH 7.52 (7.35-7.45); iSTAT Arterial Blood Gas pO2 66 mmHg (80-95); iSTAT Arterial Blood Gas pO2 C 66; iSTAT Carbon Dioxide 22 mmol/L (24-31); iSTAT FiO2 30 %; iSTAT Hematocrit 19 % (42-52); iSTAT Hemoglobin 6.5 g/dl (14.0-18.0); iSTAT Potassium 3.6 mmol/L (3.3-5.0); iSTAT Site L Radial; iSTAT Sodium 136 mmol/L (135-144)
[2022-02-20] MEDS: metroNIDAZOLE 500 MG/100 ML BAG IV SCH ×2 (05:18→13:44)
[2022-02-20] MEDS: CEFEPIME 2,000 MG in SYRINGE 0 ML IV SCH ×2 (05:18→15:44)
[2022-02-20 05:59] LABS: Hematocrit (blood only) 21.5 % (40.1-51.0); Hemoglobin 7.1 g/dl (14.0-18.0); Mean Corpuscular Volume 93.9 fL (80.0-100.0); Mean Platelet Volume 10.8 fL (9.4-12.4); Nucleated RBC # (auto) 0.38 K/uL (0-0); Nucleated RBC % (auto) 9.5 %; Platelet Count 41 K/uL (130-400); RDW Coefficient of Variation 22.5 % (11.5-14.5); RDW Standard Deviation 75.7 fL (36.4-46.3); Red Blood Count 2.29 M/uL (4.63-6.08); White Blood Count 3.98 K/ul (4.8-10.8)
[2022-02-20 06:23] LABS: Albumin Globulin Ratio 1.2 (0.9-2); Albumin Level 2.8 gm/dl (3.4-5.0); BUN Creatinine Ratio 28.1 (10-20); Bilirubin,Total 0.7 mg/dl (0.2-1.0); Calcium 7.5 mg/dl (8.5-10.1); Creatinine Clr Calc Pharmacy 141.7 ml/min; Est GFR (Non-African American) 115.6 ml/min; Globulin 2.4 gm/dl (2.5-4.0); Phosphorus 2.7 mg/dl (2.5-4.9); Potassium 3.6 mmol/L (3.5-5.1); Total Protein 5.2 gm/dl (6.0-8.3)
[2022-02-20 06:43] LABS: ALC (manual) 0.52 K/uL (1.2-3.4); ANC (manual) 3.02 K/uL (1.4-6.5); Anisocytosis Present; Basophils # (manual) 0.08 K/uL (0-0.2); Basophils % (manual) 2 %; Eosinophils # (manual) 0.04 K/uL (0-0.50); Eosinophils % (manual) 1 %; Lymphocytes # (manual) 0.52 K/uL (1.2-3.4); Lymphocytes % (manual) 13 %; Metamyelocytes # (manual) 0.12 K/uL (0-0); Metamyelocytes % (manual) 3 %; Monocytes # (manual) 0.12 K/uL (0.24-0.82); Monocytes % (manual) 3 %; Myelocytes # (manual) 0.08 K/uL (0-0); Myelocytes % (manual) 2 %; Neutrophils # (manual) 3.02 K/uL (1.4-6.5); Neutrophils % (manual) 76 %; Schistocytes 1+
--- NOTE | 2022-02-20 07:16 | Pharmacy Report ---
Pharmacy PK ABX Note - Date of Service February 20, 2022 - Assessment and Plan Assessment 56 year old M receiving IV vancomycin, cefepime, acyclovir, azithromycin, ampicillin, caspofungin, and metronidazole empirically for [employer] coverage in setting of immunocompromised state and encephalopathy. Blood cultures negative to date. Biofire (+) Adenovirus. Renal function stable. Day #3 of antimicrobial therapy. Plan Vancomycin * Vancomycin *Random* level this AM, 17.7mcg/mL (~6.5hr level) correlates with steady state AUC 405mg/L.hr and trough of 10.8mcg/mL. * Change to vancomycin 1750mg IV q12h. Predicted target steady state AUC of 566mg/L.hr and predicted trough of 15.6mcg/mL. Pharmacy will continue to follow and will adjust dose/frequency as necessary. Thank you. Pharmacy has transitioned to AUC monitoring for vancomycin. AUC/LENKA is the preferred PK/PD target and is associated with decreased risk of nephrotoxicity compared to traditional trough targets.
[2022-02-20] MEDS ORDERED: SODIUM CHLORIDE 0.9% 250 ML IV PRN (07:31)
[2022-02-20] MEDS: SODIUM CHLORIDE 0.9% 1000ML 1,000 ML IV SCH ×2 (07:39→16:52)
[2022-02-20] MEDS: POTASSIUM CHLORIDE / WTR 10 MEQ/100 ML PLCT IV SCH ×2 (07:46→09:13)
[2022-02-20] MEDS: dexAMETHasone 4 MG in SYRINGE 0 ML IV SCH (07:50)
[2022-02-20] MEDS: CYANOCOBALAMIN 1000 MCG/ML VIAL IM SCH (07:50)
[2022-02-20] MEDS: PANTOprazole 40 MG in SYRINGE 0 ML IV SCH (07:50)
[2022-02-20] MEDS ORDERED: AZITHROMYCIN 250 MG in DEXTROSE 5% 250 ML IV SCH (08:00)
[2022-02-20] MEDS ORDERED: CASPOFUNGIN 50 MG in SODIUM CHLORIDE 0.9% 250 ML IV SCH (09:00)
[2022-02-20] MEDS ORDERED: VANCOMYCIN HCL 1,750 MG in SODIUM CHLORIDE 0.9% 500 ML IV SCH (09:00)
--- NOTE | 2022-02-20 10:41 | Consultation Report ---
DATE OF SERVICE: 02/20/2022. REASON FOR CONSULTATION: History of lymphoma with worsening thrombocytopenia. 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 The patient has been followed by Dr. Atkins of [facility] Oncology and received six cycles of dose-adjusted R-EPOCH between 05/09/2021 and 09/23/2021 as well as intrathecal methotrexate with each cycle x7. He was subsequently diagnosed with recurrent disease with abdominal lymphadenopathy and brain MRI in 11/2021, revealing a large 5 cm hemorrhagic mass in the right occipital lobe and subdural hematoma .He was evaluated at [facility] and also at [facility] and he was felt to not be a candidate for CAR-T cell therapy with recommendations for gemcitabine/oxaliplatin/rituximab, which was started on 12/17/2021. The patient was admitted to [facility] on 02/17/2022 with altered mental status. EEG obtained on 02/19/2022 revealed severe metabolic encephalopathy. 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 CT head on 02/18/2022 revealed old right frontal lobe infarct as well as persistent hypodensity within the right occipital lobe with peripheral 2 cm intermediate density focus. CT abdomen on 02/19/2022 revealed soft tissue mass in the anterolateral lower chest/upper abdominal wall measuring 96 x 44 mm. CTA chest, also on 02/19/2022 revealed interval development of multifocal ground-glass and consolidative opacities compatible with pneumonia. Hematology was consulted for worsening thrombocytopenia with platelet count of 12,000 yesterday.During my evaluation of patient today, he was intubated and unresponsive to commands. REVIEW OF SYSTEMS: Unable to obtain. PAST MEDICAL HISTORY: 1. GERD. 2. Stage IV aggressive B cell lymphoma. PAST SURGICAL HISTORY: 1. History of exploratory laparotomy. 2. Herniorrhaphy. 3. Rotator cuff repair. HOME MEDICATIONS: 1. Acyclovir. 2. Allopurinol. 3. Apixaban. 4. Dexamethasone. 5. Famotidine. 6. Keppra. 7. Lorazepam. 8. Multivitamin. 9. Olanzapine. 10. Tamsulosin. 11. Gabapentin. 12. Oxycodone. ALLERGIES: No known drug allergies. SOCIAL HISTORY: Unable to obtain. FAMILY HISTORY: Unable to obtain. PHYSICAL EXAMINATION: VITAL SIGNS: Blood pressure 116/88, heart rate 122, respiratory rate 21, temperature 37.0 degrees, oxygen saturation 94% on mechanical ventilation. GENERAL: Intubated and sedated. Middle-aged gentleman, intubated and unresponsive to commands. CARDIOVASCULAR: Heart sounds S1 and S2 heard with no murmurs, rubs or gallops. CHEST: Bilateral crepitations. LOWER EXTREMITIES: No edema bilaterally. LABORATORY STUDIES: CBC significant for white count of 3.98, hemoglobin 7.1, hematocrit 21.5, platelet count 41,000. Chemistry: Sodium 137, potassium 3.6, chloride 108, BUN 16, creatinine 0.57. IMAGING: As above. ASSESSMENT AND PLAN: 1. Aggressive stage IV, double-hit B-cell lymphoma. 2. Central nervous system lymphoma. 3. Altered mental status. 4. Bilateral pneumonias. 5. Pancytopenia. Unfortunate gentleman,with history of recurrent aggressive high-grade B cell lymphoma with bone marrow and central nervous system involvement, who is primarily under the care of Dr. Atkins of [facility] Oncology and presented with altered mental status. Hematology was consulted for thrombocytopenia. I suspect that his thrombocytopenia is most likely multifactorial due to recent chemotherapy with gemcitabine/oxaliplatin/rituximab as well as bone marrow involvement of his lymphoma and underlying infection. Could check B12 and folate levels to rule out nutritional component as well. Agree with transfusion for platelet count less than 15,000. Also, recommend transfusion for hemoglobin less than 8. May consider GCSF if ANC is below 500. Patient's overall prognosis is extremely poor given POCKET ASSEMBLER lymphoma. Suspect that his altered mental status, might be due to this and he may need repeat brain MRI with contrast to evaluate lesions noted on CT head. Also, consider spinal tap with cytology to assess for lymphoma.. Thank you for this consult. Oncology will sign off at this time. The patient to follow up with Dr. Atkins if he makes it through this admission. Feel free to call if you have any further questions. Job ID: [id number] [facility]
--- NOTE | 2022-02-20 11:59 | Critical Care Progress Note ---
Date of Service February 20, 2022 Assessment & Plan (1) Acute metabolic encephalopathy: (2) Immunocompromised: (3) Thrombocytopenia: (4) Hypoxia: (5) Lymphoma: (6) Aspiration pneumonia: (7) Adenoviral bronchopneumonia: Plan 56-year-old male with a past medical history of COAL UNLOADER lymphoma status postchemotherapy roughly 2 to 3 weeks ago now presenting to the hospital with worsening altered mental status and hypoxemia. Neurologic: Unclear etiology of worsening encephalopathy. MRI of the brain and EEG have been unrevealing aside for severe encephalopathy. Replacing light limits to proceed with lumbar puncture. Will need platelet count greater than 50,000. We will need to consider transfer to a tertiary center for empiric plasmapheresis or IVIG. ?paraneoplastic syndrome, ? Encephalitis from adenovirus, ?neurotoxicity due to chemotherapy, ? Bacterial meningitis. Repeat EEG ordered. Pulmonary: Continue lung protective ventilation strategy. Currently requiring minimal vent support. CT chest with evidence of groundglass opacities and bibasilar atelectasis/infiltrate. Likely aspiration pneumonitis/pneumonia. Bio fire positive for adenovirus. Cardiovascular: Sinus tachycardia secondary to sympathetic response. Hemodynamically stable. Maintain mean atrial pressure above 65 mmHg. Gastrointestinal: Start tube feeds. Patient with mild transaminitis likely from chemotherapy. Hepatitis panel pending. CT abdomen concerning for large abdominal wall lesion which may be metastatic deposit from lymphoma. Protonix 40 twice daily. Renal: No significant issues. Replace electrolytes per protocol. Infectious disease: Patient is immunocompromised. Adenovirus positive on bio fire. ID consult placed. Patient on broad-spectrum antibiotics to cover for multitude of issues including bacterial meningitis and viral meningitis. Continue vancomycin, cefepime, Flagyl, acyclovir, caspofungin and azithromycin. Urine histoplasma antigen, beta D glucan, cryptococcus serum antigen, Coccidioides antibodies, blood cultures, fungal sputum cultures and regular sputum cultures ordered. Pro-Sravan negative. Platelet count rises above 50,000, will perform an LP and send fluid for cultures and bio fire testing. Hematologic: Patient with history of COAL UNLOADER lymphoma. DIC panel was unremarkable. He does appear to have active hemolysis. Unclear etiology. ?TTP/atypical HUS. Possible chemotherapy related pancytopenia. Hematology consulted. Patient receiving 1 unit of packed RBCs. Platelet transfusions ongoing. Endocrine: Hyperthyroid. We will continue to monitor. Maintain euglycemia. VTE prophylaxis: SCDs CODE STATUS: Full Family at bedside: Updated at bedside Disposition: Remain in ICU I have personally spent 48 minutes of critical care time in the direct management of this patient. This is a life/limb threatening event. This includes time spent evaluating patient, direct bedside care, chart review, placing orders, interpretation of diagnostic studies, discussion with consultants, patient, and family members, as well as other required patient management activities. This time is exclusive of all separately billable procedures, and teaching time and separate from and in addition to any other critical care service time. Thank you for allowing us to participate in the care of this patient. Admission and Anticipated Discharge Date Admission Date: February 17, 2022 Subjective Patient seen and examined. Continues to be completely unresponsive to commands. Off sedation. Overbreathing the ventilator. Medically stable. Review of Systems Review of Systems: Unobtainable due to endotracheal tube and Unobtainable due to reduced consciousness Physical Exam Physical Exam: Constitutional: Patient appears older than stated age. Intubated. Eyes: Pupils are equal round and reactive to light. Conjunctivae are normal. Anicteric sclera. Ears nose, mouth and throat: ET tube in place. Neck: Trachea is midline. Visual inspection is normal. Respiratory: Diminished bilateral lung sounds. No wheeze. Tachypneic. Cardiovascular: Tachycardic. No murmur. No edema. Gastrointestinal: Large prior surgical incisions noted. Abdomen mildly distended. Musculoskeletal: Extremities intact. Skin: No rashes, warm dry and intact. Neurologic: Positive gag and cough and suction. Psychiatric: Unable to assess. Results & Data Results & Data ([facility]) Vital Signs (Past 12 Hours) Vital Signs Temp Pulse Pulse Resp BP BP Pulse Ox 02/20/22 11:23 37.1 C 87 20 131/92 98 02/20/22 11:23 98 H 23 96 02/20/22 11:00 36.8 C 103 H 25 H 95 02/20/22 11:00 133/96 02/20/22 10:45 131/93 02/20/22 10:45 36.8 C 98 H 21 96 02/20/22 10:30 36.9 C 116 H 18 96 02/20/22 10:30 121/91 02/20/22 10:00 36.9 C 97 H 17 94 02/20/22 10:00 127/87 02/20/22 09:30 36.9 C 96 H 18 96 02/20/22 09:30 125/89 02/20/22 09:00 36.9 C 98 H 19 97 02/20/22 09:00 127/88 02/20/22 08:30 36.9 C 104 H 19 98 02/20/22 08:30 132/97 02/20/22 08:00 37.0 C 98 H 18 97 02/20/22 08:00 126/92 02/20/22 07:30 37.0 C 103 H 19 97 02/20/22 07:30 122/92 02/20/22 07:14 37.0 C 101 H 20 97 02/20/22 07:14 118/93 02/20/22 07:00 36.9 C 104 H 20 97 02/20/22 07:00 130/98 02/20/22 06:30 36.9 C 103 H 17 97 02/20/22 10:53 36.8 C 102 H 20 131/93 93 02/20/22 08:00 99 H 02/20/22 08:00 02/20/22 08:00 02/20/22 08:00 02/20/22 10:38 36.9 C 99 H 20 121/91 96 02/20/22 07:00 37.1 C 98 H 14 130/98 98 02/20/22 10:22 36.7 C 94 H 18 127/82 94 02/20/22 07:13 112 H 21 94 02/20/22 06:00 37.0 C 101 H 17 96 02/20/22 06:00 116/88 02/20/22 05:00 36.9 C 103 H 17 97 02/20/22 05:00 117/89 02/20/22 04:00 37.1 C 105 H 17 97 02/20/22 04:00 113/86 02/20/22 03:00 37.0 C 109 H 16 97 02/20/22 03:00 118/86 02/20/22 02:00 114/96 02/20/22 04:00 02/20/22 03:30 107 H 20 99 02/20/22 02:00 37.1 C 105 H 19 97 02/20/22 01:00 37.1 C 102 H 19 95 02/20/22 01:00 122/91 02/20/22 00:00 37.0 C 97 H 18 96 02/20/22 00:00 104/78 02/20/22 00:00 Pulse Ox O2 Del Method O2 Del Method FiO2 02/20/22 11:23 02/20/22 11:23 30 02/20/22 11:00 02/20/22 11:00 02/20/22 10:45 02/20/22 10:45 02/20/22 10:30 02/20/22 10:30 02/20/22 10:00 02/20/22 10:00 02/20/22 09:30 02/20/22 09:30 02/20/22 09:00 02/20/22 09:00 02/20/22 08:30 02/20/22 08:30 02/20/22 08:00 02/20/22 08:00 02/20/22 07:30 02/20/22 07:30 02/20/22 07:14 02/20/22 07:14 02/20/22 07:00 02/20/22 07:00 02/20/22 06:30 02/20/22 10:53 02/20/22 08:00 02/20/22 08:00 Mechanical Vent 02/20/22 08:00 96 Mechanical Vent 02/20/22 08:00 30 02/20/22 10:38 02/20/22 07:00 Mechanical Vent 30 02/20/22 10:22 02/20/22 07:13 30 02/20/22 06:00 02/20/22 06:00 02/20/22 05:00 02/20/22 05:00 02/20/22 04:00 02/20/22 04:00 02/20/22 03:00 02/20/22 03:00 02/20/22 02:00 02/20/22 04:00 30 02/20/22 03:30 30 02/20/22 02:00 02/20/22 01:00 02/20/22 01:00 02/20/22 00:00 02/20/22 00:00 02/20/22 00:00 30 Coding Level of Care Code Critical Care 1st 30-74 mins Diagnoses Acute metabolic encephalopathy G93.41 Immunocompromised D84.9 Thrombocytopenia D69.6 Hypoxia R09.02 Lymphoma C85.90 Aspiration pneumonia J69.0 Adenoviral bronchopneumonia J12.0 Time Spent (min) 48
--- NOTE | 2022-02-20 15:23 | Electroencephalogram ---
EEG Procedure Note Date of Service February 20, 2022 Start / End Times Start Time: 13:04 End Time: 13:[address] Paddy Monae MD History A 56-year-old male currently intubated for encephalopathy and acute respiratory failure. EEG performed for ration epileptiform activity. Home Medication List Medication Instructions Recorded Confirmed Type acyclovir 400 mg tablet 400 mg PO BID 01/22/22 02/17/22 History allopurinol 300 mg tablet 300 mg PO QAM 01/22/22 02/17/22 History apixaban 5 mg (74 tabs) tablets in 5 mg PO BID #74 ea 01/22/22 02/17/22 Rx a dose pack (Eliquis) dexamethasone 4 mg tablet 4 mg PO DAILY 01/22/22 02/17/22 History famotidine 20 mg tablet 20 mg PO BID 01/22/22 02/17/22 History levetiracetam 500 mg tablet 500 mg PO BID 01/22/22 02/17/22 History lorazepam 1 mg tablet 1 mg sublingual TID PRN Anxiety 01/22/22 02/17/22 History multivitamin 1 tab PO QAM 01/22/22 02/17/22 History olanzapine 10 mg tablet 10 mg PO HS 01/22/22 02/17/22 History tamsulosin 0.4 mg capsule 0.4 mg PO QAM 01/22/22 02/17/22 History calcium carbonate 500 mg calcium 500 mg PO BID PRN heartburn 02/17/22 02/17/22 History (1,250 mg) chewable tablet gabapentin 300 mg capsule 300 mg PO HS 02/17/22 02/17/22 History oxycodone 5 mg capsule 5 - 10 mg PO Q6H PRN Pain 02/17/22 02/17/22 History Inpatient Medication List Cefepime HCl 2,000 mg/ Syringe 20 mls @ 5 mls/min IV Q8H [facility]; Protocol Stop: 02/28/22 13:59 Last Admin: 02/20/22 05:18 Dose: 5 mls/min Documented By: Admin: 02/19/22 21:46 Dose: 5 mls/min Documented By: Admin: 02/19/22 14:03 Dose: 5 mls/min Documented By: Admin: 02/19/22 05:07 Dose: 5 mls/min Documented By: Admin: 02/18/22 22:49 Dose: 5 mls/min Documented By: Admin: 02/18/22 15:00 Dose: 5 mls/min Documented By: STEVE Dexamethasone 4 mg/ Syringe 1 mls @ 1 mls/min IV Q12 [facility] Stop: 03/21/22 08:59 Last Admin: 02/20/22 07:50 Dose: 1 mls/min Documented By: Admin: 02/19/22 21:45 Dose: 1 mls/min Documented By: Admin: 02/19/22 09:27 Dose: 1 mls/min Documented By: STEVE Pantoprazole Sodium 40 mg/ (Syringe) 10 mls @ 5 mls/min IV BID [facility] Stop: 03/21/22 08:59 Last Admin: 02/20/22 07:50 Dose: 5 mls/min Documented By: Admin: 02/19/22 21:43 Dose: 5 mls/min Documented By: Admin: 02/19/22 09:26 Dose: 5 mls/min Documented By: STEVE Ampicillin Sodium 2,000 mg/ (Sodium Chloride) 100 mls @ 200 mls/hr IV Q4H [facility] Stop: 03/01/22 12:29 Last Infusion: 02/20/22 09:46 Dose: 0 mls/hr Documented By: Admin: 02/20/22 09:14 Dose: 200 mls/hr Documented By: Infusion: 02/20/22 04:34 Dose: 0 mls/hr Documented By: Admin: 02/20/22 04:04 Dose: 200 mls/hr Documented By: Infusion: 02/20/22 01:16 Dose: 0 mls/hr Documented By: Admin: 02/20/22 00:46 Dose: 200 mls/hr Documented By: Infusion: 02/19/22 21:52 Dose: 0 mls/hr Documented By: Admin: 02/19/22 21:14 Dose: 200 mls/hr Documented By: Infusion: 02/19/22 17:04 Dose: 0 mls/hr Documented By: Admin: 02/19/22 16:16 Dose: 200 mls/hr Documented By: Infusion: 02/19/22 13:30 Dose: 0 mls/hr Documented By: Admin: 02/19/22 12:39 Dose: 200 mls/hr Documented By: ELIEL Azithromycin 250 mg/ Dextrose 252.5 mls @ 125 mls/hr IV DAILY@0800 [facility]; Protocol Stop: 02/23/22 10:02 Last Infusion: 02/20/22 10:25 Dose: 0 mls/hr Documented By: Admin: 02/20/22 07:39 Dose: 125 mls/hr Documented By: GPCoco Sodium Chloride (Nss 1000ml) 1,000 mls @ 80 mls/hr IV .[id number] [facility] Stop: 03/21/22 13:44 Last Admin: 02/20/22 07:39 Dose: 80 mls/hr Documented By: Infusion: 02/20/22 02:25 Dose: 80 mls/hr Documented By: Admin: 02/19/22 13:55 Dose: 80 mls/hr Documented By: ELIEL Metronidazole (Flagyl) 500 mg in 100 mls @ 100 mls/hr IV Q8H [facility] Stop: 03/01/22 13:59 Last Infusion: 02/20/22 15:05 Dose: 0 mls/hr Documented By: Admin: 02/20/22 13:44 Dose: 100 mls/hr Documented By: Infusion: 02/20/22 09:29 Dose: 0 mls/hr Documented By: Admin: 02/20/22 05:18 Dose: 100 mls/hr Documented By: Infusion: 02/19/22 22:50 Dose: 0 mls/hr Documented By: Admin: 02/19/22 21:50 Dose: 100 mls/hr Documented By: Infusion: 02/19/22 17:20 Dose: 0 mls/hr Documented By: Admin: 02/19/22 16:16 Dose: 100 mls/hr Documented By: ELIEL Caspofungin 50 mg/ Sodium (Chloride) 257.1429 mls @ 257.143 mls/hr IV DAILY [facility]; Protocol Stop: 03/22/22 08:59 Last Infusion: 02/20/22 09:30 Dose: 0 mls/hr Documented By: Admin: 02/20/22 07:39 Dose: 257.1 mls/hr Documented By: STEPHANI Vancomycin HCl 1,750 mg/ (Sodium Chloride) 535 mls @ 200 mls/hr IV Q12H [facility] Stop: 03/02/22 08:59 Last Infusion: 02/20/22 12:38 Dose: 0 mls/hr Documented By: Admin: 02/20/22 09:46 Dose: 200 mls/hr Documented By: STEPHANI Description This is a 21 electrode EEG with a single channel dedicated to limited EKG. The electrodes were placed in accordance with the International 10-20 system. Report: At the onset of the EEG the patient is in an altered mental state. The background appear symmetric although disorganized with loss of the anterior to posterior gradient. The posterior dominant rhythm is not seen. The background consist of generalized 2-3 Hz polymorphic delta activity with some intermixed faster frequencies. No stage II sleep transients are seen. No epileptiform discharges are seen. Interpretation Impression: This is an abnormal routine EEG in a patient with altered mentation due to severe generalized background slowing suggestive of a severe nonspecific encephalopathy. No electrographic seizures or epileptiform discharges are seen. The study appears similar or unchanged compared to previous study performed on 02/19/2022.
[2022-02-20 16:16] LABS: Hematocrit (blood only) 23.6 % (40.1-51.0); Mean Corpuscular Hemoglobin 30.7 pg (25.0-34.0); Mean Corpuscular Hgb Conc 33.9 g/dL (32.0-36.0); Mean Corpuscular Volume 90.4 fL (80.0-100.0); Mean Platelet Volume 10.6 fL (9.4-12.4); Nucleated RBC # (auto) 0.48 K/uL (0-0); Nucleated RBC % (auto) 11.7 %; Platelet Count 50 K/uL (130-400); RDW Coefficient of Variation 21.7 % (11.5-14.5); RDW Standard Deviation 66.5 fL (36.4-46.3); Red Blood Count 2.61 M/uL (4.63-6.08); White Blood Count 4.11 K/ul (4.8-10.8)
[2022-02-20 16:48] LABS: ALC (manual) 0.37 K/uL (1.2-3.4); ANC (manual) 3.16 K/uL (1.4-6.5); Lymphocytes # (manual) 0.37 K/uL (1.2-3.4); Lymphocytes % (manual) 9 %; Metamyelocytes # (manual) 0.25 K/uL (0-0); Metamyelocytes % (manual) 6 %; Monocytes # (manual) 0.16 K/uL (0.24-0.82); Monocytes % (manual) 4 %; Myelocytes # (manual) 0.16 K/uL (0-0); Myelocytes % (manual) 4 %; Neutrophils # (manual) 3.16 K/uL (1.4-6.5); Neutrophils % (manual) 77 %; Schistocytes 1+; Tear Drop Cells 1+
[2022-02-20 17:29] LABS: HBSAG NON-REACTIVE (NON-REACTIVE); Hepatitis A Antibody IgM NON-REACTIVE (NON-REACTIVE); Hepatitis B Core Antibody IgM NON-REACTIVE (NON-REACTIVE)
--- NOTE | 2022-02-20 17:46 | Communication Note ---
Date of Service: February 20, 2022 Current Inpatient Medications Cefepime HCl 2,000 mg/ Syringe 20 mls @ 5 mls/min IV Q8H [facility]; Protocol Stop: 02/28/22 13:59 Last Admin: 02/20/22 15:44 Dose: 5 mls/min Dexamethasone 4 mg/ Syringe 1 mls @ 1 mls/min IV Q12 [facility] Stop: 03/21/22 08:59 Last Admin: 02/20/22 07:50 Dose: 1 mls/min Pantoprazole Sodium 40 mg/ (Syringe) 10 mls @ 5 mls/min IV BID [facility] Stop: 03/21/22 08:59 Last Admin: 02/20/22 07:50 Dose: 5 mls/min Ampicillin Sodium 2,000 mg/ (Sodium Chloride) 100 mls @ 200 mls/hr IV Q4H [facility] Stop: 03/01/22 12:29 Last Infusion: 02/20/22 17:43 Dose: Infused Azithromycin 250 mg/ Dextrose 252.5 mls @ 125 mls/hr IV DAILY@0800 [facility]; Protocol Stop: 02/23/22 10:02 Last Infusion: 02/20/22 10:25 Dose: Infused Sodium Chloride (Nss 1000ml) 1,000 mls @ 80 mls/hr IV .[id number] [facility] Stop: 03/21/22 13:44 Last Admin: 02/20/22 16:52 Dose: Not Given Metronidazole (Flagyl) 500 mg in 100 mls @ 100 mls/hr IV Q8H [facility] Stop: 03/01/22 13:59 Last Infusion: 02/20/22 15:05 Dose: Infused Caspofungin 50 mg/ Sodium (Chloride) 257.1429 mls @ 257.143 mls/hr IV DAILY [facility]; Protocol Stop: 03/22/22 08:59 Last Infusion: 02/20/22 09:30 Dose: Infused Vancomycin HCl 1,750 mg/ (Sodium Chloride) 535 mls @ 200 mls/hr IV Q12H [facility] Stop: 03/02/22 08:59 Last Infusion: 02/20/22 12:38 Dose: Infused Acyclovir Sodium 770 mg/ (Dextrose) 265.4 mls @ 250 mls/hr IV Q8H [facility]; Protocol Stop: 03/02/22 17:59 Miscellaneous Information (Vancomycin Consult Active) 1 each N/A UD PRN PRN Reason: Consult Stop: 03/20/22 13:54 Ondansetron HCl (Ondansetron Inj 2 Mg/Ml 2 Ml Vial) 4 mg IV Q6H PRN PRN Reason: Nausea Stop: 03/19/22 18:20
[2022-02-20] MEDS ORDERED: ACYCLOVIR SOD 770 MG in DEXTROSE 5% 250 ML IV SCH (18:00)
--- NOTE | 2022-02-20 18:22 | Discharge Summary ---
Date of Service February 20, 2022 Admission HPI Per Admitting Provider Chief Complaint: Increased confusion x 1 week. 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 Of significance patient does have metastatic B-cell lymphoma. He follows [facility] oncology and is currently receiving treatment with gemcitabine and oxaliplatin. His last treatment was on 01/31/2022. Pt states he came to the hospital because he couldn't walk. Family at bedside states he had a similar episode in past when he had mass in brain. Family notes yesterday he was having a harder time walking and this morning she helped him go to bathroom and after he sat down he couldn't get up. She has noted increased confusion over the last few days. Family gives him his medications. Per EMS there was concern maybe he took extra oxycodone and ativan. He takes 1mg ativan at night. He can take it up to 3x a day. He took one this morning because of pain. He also took 2 oxycodone this morning. Typically he takes two tablets twice a day. Family denies fever, his temp was 99.4. They feel he is more shaky but denies chills or sweats. He has been coughing, dry. They denies n/v/d, abd pain, chest pain, sob. Overall appetite has been decreased and decreased fluid intake the past 2-3 days. No apparent focal weakness or facial droop. He has had a bit of slurred speech and more difficult to understand today. He did take his morning medications. No episode of witnessed choking or aspiration. They do feel he coughs when he drinks. Family at bedside provides most of hx as patient is unreliable. Admission Exam Per Admitting Provider General: Lying comfortably in bed, not in acute distress, on room air HEENT: EOMI, LEA, Dry oral mucosa Chest: Clear breath sounds bilaterally, no wheezes or crackles CVS: Regular rate and rhythm, normal heart sounds, no murmur Abdomen: Soft, non tender, not distended, normal bowel sounds Neuro: Awake, alert, oriented to self, confused. Follows commands. Speech slurred. No facial droop. Strength seems slightly weak in RLE 4+/5 otherwise 5/5. Extremities: No cyanosis, clubbing or edema Principal Diagnosis Acute encephalopathy, Pancytopenia, Recent IJ thrombosis, Metastatic lymphoma to brain Discharge Exam General: Unresponsive despite being off of sedation, intubated and on mechanical ventilation HEENT: PERRL, no nystagmus, no icterus Chest: diminished breath sounds anteriorly CVS: tachycardia, normal heart sounds, no murmur Abdomen: Soft, mildly distended, + bowel sounds Neuro: Unresponsive to verbal or noxious stimuli, not following any commands Extremities: No edema Discharge Data Allergies Allergy/AdvReac Type Severity Reaction Status Date / Time No Known Allergies Allergy Verified 02/17/22 17:04 Consultations 02/17/22 16:20 ED Decision to Admit Stat 02/18/22 13:33 Consult Neurology Routine 02/19/22 09:18 Consult Pulmonology Routine 02/19/22 12:00 Consult Hematology Routine 02/19/22 13:50 Consult Infectious Diseases Routine 02/20/22 15:10 Consult Palliative Care Routine 02/20/22 16:08 Burn CD for patient Stat Ordered Studies 02/17/22 13:25 CT abd pelvis IV con only Stat CT cervical spine wo con Stat CT chest diagnostic w con Stat CT head/brain wo con Stat 02/17/22 17:23 MR brain wo/w con Routine 02/18/22 18:24 CT head/brain wo con Stat 02/19/22 10:36 CT head/brain wo con Stat 02/19/22 10:38 CT Abd and Pelvis [CT abd pelvis IV con only] Stat 02/19/22 10:44 CT angio chest PE protocol Stat Laboratory Results WBC 4.11 K/ul (4.8-10.8) L 02/20/22 16:01 RBC 2.61 M/uL (4.63-6.08) L 02/20/22 16:01 Hgb 8.0 g/dl (14.0-18.0) L 02/20/22 16:01 POC Hgb 6.5 g/dl (14.0-18.0) L* 02/20/22 03:22 Hct 23.6 % (40.1-51.0) L 02/20/22 16:01 POC Hct 19 % (42-52) L* 02/20/22 03:22 MCV 90.4 fL (80.0-100.0) 02/20/22 16:01 MCH 30.7 pg (25.0-34.0) 02/20/22 16:01 MCHC 33.9 g/dL (32.0-36.0) 02/20/22 16:01 RDW Std Deviation 66.5 fL (36.4-46.3) H 02/20/22 16:01 RDW Coeff of Tavo 21.7 % (11.5-14.5) H 02/20/22 16:01 Plt Count 50 K/uL (130-400) L 02/20/22 16:01 MPV 10.6 fL (9.4-12.4) 02/20/22 16:01 Absolute Nucleated RBC 0.48 K/uL (0-0) H 02/20/22 16:01 Nucleated RBC % (auto) 11.7 % 02/20/22 16:01 Neutrophils % (Manual) 77 % 02/20/22 16:01 Lymphocytes % (Manual) 9 % 02/20/22 16:01 Monocytes % (Manual) 4 % 02/20/22 16:01 Eosinophils % (Manual) 1 % 02/20/22 05:29 Basophils % (Manual) 2 % 02/20/22 05:29 Metamyelocytes % (Man) 6 % 02/20/22 16:01 Myelocytes % (Man) 4 % 02/20/22 16:01 Promyelocytes % (Man) 3 % 02/19/22 06:04 Blast Cells % (Manual) 2 % 02/19/22 06:04 Neutrophils # (Manual) 3.16 K/uL (1.4-6.5) 02/20/22 16:01 Total Absolute Neuts 3.16 K/uL (1.4-6.5) 02/20/22 16:01 Lymphocytes # (Manual) 0.37 K/uL (1.2-3.4) L 02/20/22 16:01 Total Abs Lymphocytes 0.37 K/uL (1.2-3.4) L 02/20/22 16:01 Monocytes # (Manual) 0.16 K/uL (0.24-0.82) L 02/20/22 16:01 Eosinophils # (Manual) 0.04 K/uL (0-0.50) 02/20/22 05:29 Basophils # (Manual) 0.08 K/uL (0-0.2) 02/20/22 05:29 Metamyelocytes # (Man) 0.25 K/uL (0-0) H 02/20/22 16:01 Myelocytes # (Manual) 0.16 K/uL (0-0) H 02/20/22 16:01 Promyelocytes # (Man) 0.13 K/uL (0-0) H 02/19/22 06:04 Blast Cells # (Man) 0.08 K/uL (0-0) H 02/19/22 06:04 Blood Smear Review 02/18/22 05:55 Platelet Estimate Decreased (Normal) L 02/19/22 22:51 Polychromasia 1+ 02/18/22 05:55 Anisocytosis Present 02/20/22 05:29 Tear Drop Cells 1+ 02/20/22 16:01 Ovalocytes 1+ 02/19/22 06:04 Echinocytes 1+ 02/19/22 06:04 Acanthocytes (Spur) 2+ 02/19/22 11:13 Schistocytes 1+ 02/20/22 16:01 ESR 30 mm/hr (0-20) H 02/20/22 05:29 Haptoglobin 187 mg/dL (43-212) 02/19/22 12:44 PT 11.0 Seconds (9.0-12.0) 02/19/22 12:44 INR 1.0 (0.9-1.1) 02/19/22 12:44 Fibrinogen 595 mg/dl (184-400) H 02/19/22 12:44 Fibrin Degrad Products 10-40 mcg/ml (<10) H 02/19/22 12:44 Sample Site L Radial 02/20/22 03:22 POC pH 7.52 (7.35-7.45) H* 02/20/22 03:22 POC pCO2 26 mmHg (35-46) L 02/20/22 03:22 POC pO2 66 mmHg (80-95) L 02/20/22 03:22 POC HCO3 22 louann/L (19-24) 02/20/22 03:22 POC Total CO2 22 mmol/L (24-31) L 02/20/22 03:22 POC Base Excess -1.0 louann/L (-9-1.8) 02/20/22 03:22 ABG pH 7.56 (7.35-7.45) H* 02/18/22 21:07 ABG pH (Temp Correct) 7.517 (7.35-7.45) H* 02/20/22 03:22 ABG pCO2 26 mmHg (35-46) L 02/18/22 21:07 ABG pCO2 (Temp Corrct 26 mmHg (35-46) L 02/20/22 03:22 ABG pO2 97 mmHg (80-95) H 02/18/22 21:07 POC ABG pO2 at Pt Temp 66 02/20/22 03:22 ABG HCO3 23 mmol/L (19-24) 02/18/22 21:07 POC ABG O2 Sat 95.0 % (90-95) 02/20/22 03:22 ABG O2 Saturation 97.8 % (90-95) H 02/18/22 21:07 ABG Base Excess 2.3 mEq/L (-9-1.8) H 02/18/22 21:07 Ángel Test Pass 02/20/22 03:22 VBG pH 7.47 (7.36-7.41) H 02/17/22 14:35 VBG pCO2 35 mmHg (38-50) L 02/17/22 14:35 VBG pO2 40 mmHg 02/17/22 14:35 VBG HCO3 26 mmol/L 02/17/22 14:35 VBG O2 Saturation 63.9 % 02/17/22 14:35 VBG Base Excess 2.1 mEq/L 02/17/22 14:35 Oxygen Given 5 L 02/18/22 21:07 O2 Delivery Device Ventilator 02/20/22 03:22 POC O2 Rate 14 02/20/22 03:22 POC FiO2 30 % 02/20/22 03:22 Tidal Volume 410 02/20/22 03:22 PEEP 5 02/20/22 03:22 Pressure Support Vent 5 02/20/22 03:22 POC Sodium 136 mmol/L (135-144) 02/20/22 03:22 Sodium 137 mmol/L (136-145) 02/20/22 05:29 POC Potassium 3.6 mmol/L (3.3-5.0) 02/20/22 03:22 Potassium 3.6 mmol/L (3.5-5.1) 02/20/22 05:29 Chloride 108 mmol/L (98-107) H 02/20/22 05:29 Carbon Dioxide 23 mmol/L (21-32) 02/20/22 05:29 Anion Gap 6 (3-11) 02/20/22 05:29 BUN 16 mg/dl (6-23) 02/20/22 05:29 Creatinine 0.57 mg/dl (0.6-1.4) L 02/20/22 05:29 Est Cr Clr Drug Dosing 141.7 ml/min 02/20/22 05:29 Est GFR ( Amer) 134.0 ml/min 02/20/22 05:29 Est GFR (Non-Af Amer) 115.6 ml/min 02/20/22 05:29 BUN/Creatinine Ratio 28.1 (10-20) H 02/20/22 05:29 Glucose 135 mg/dl (70-99(Fasting)) H 02/20/22 05:29 POC Glucose 173 mg/dl (70-99) H 02/20/22 11:39 Lactate 1.3 mmol/L (0.4-2.0) 02/19/22 12:44 Calcium 7.5 mg/dl (8.5-10.1) L 02/20/22 05:29 Phosphorus 2.7 mg/dl (2.5-4.9) 02/20/22 05:29 Magnesium 2.0 mg/dl (1.7-2.4) 02/20/22 05:29 Total Bilirubin 0.7 mg/dl (0.2-1.0) 02/20/22 05:29 AST 62 U/L (13-39) H 02/20/22 05:29 ALT 53 U/L (7-52) H 02/20/22 05:29 Alkaline Phosphatase 188 U/L (34-104) H 02/20/22 05:29 Ammonia 30.0 umol/L (18-72) 02/18/22 13:59 Lactate Dehydrogenase 3391 U/L (86-244) H 02/19/22 12:44 Troponin I High Sens 15.9 pg/ml (0-20) 02/17/22 14:35 Total Protein 5.2 gm/dl (6.0-8.3) L 02/20/22 05:29 Albumin 2.8 gm/dl (3.4-5.0) L 02/20/22 05:29 Globulin 2.4 gm/dl (2.5-4.0) L 02/20/22 05:29 Albumin/Globulin Ratio 1.2 (0.9-2) 02/20/22 05:29 Lipase 15 U/L (11-82) 02/17/22 14:35 Serotonin Release Assay TNP 02/19/22 12:44 Vitamin B12 170 pg/ml (180-914) L 02/18/22 13:59 Folate > 22.30 ng/ml (>5.38) 02/18/22 13:59 Procalcitonin 0.25 ng/ml (0-0.5) 02/19/22 12:44 TSH 0.224 uIu/ml (0.300-4.500) L 02/17/22 17:48 Free T4 0.77 ng/dl (0.61-1.60) 02/17/22 17:48 Urine Color Red 02/19/22 12:15 Urine Appearance Cloudy (Clear) A 02/19/22 12:15 Urine pH 6.0 (4.5-7.5) 02/19/22 12:15 Ur Specific Winston 1.025 (1.000-1.030) 02/19/22 12:15 Urine Protein 3+ (Negative) H 02/19/22 12:15 Urine Glucose (UA) Negative (Negative) 02/19/22 12:15 Urine Ketones Trace (Negative) H 02/19/22 12:15 Urine Blood 3+ (Negative) H 02/19/22 12:15 Urine Nitrite Negative (Negative) 02/19/22 12:15 Urine Bilirubin Negative (Negative) 02/19/22 12:15 Urine Urobilinogen Negative (Negative) 02/19/22 12:15 Ur Leukocyte Esterase Negative (Negative) 02/19/22 12:15 Urine WBC (Auto) 5-10 /hpf (0-5) H 02/18/22 15:25 Urine RBC (Auto) 0-4 /hpf (0-4) 02/18/22 15:25 U Hyaline Cast (Auto) 5-10 /lpf (0-5) H 02/18/22 15:25 U Epithel Cells (Auto) >30 /lpf (0-5) H 02/18/22 15:25 Urine Bacteria (Auto) Negative (Negative) 02/18/22 15:25 Urine RBC >30 /hpf (0-4) H 02/19/22 12:15 Urine WBC 5-10 /hpf (0-5) H 02/19/22 12:15 Ur Epithelial Cells 0-5 /lpf (0-5) 02/19/22 12:15 Ur Renal Epithelial Cell 0-5 /lpf (0-5) 02/18/22 15:25 Urine Bacteria Negative (Negative) 02/19/22 12:15 Urine Creatinine Cancelled 02/18/22 13:59 Nasal Screen MRSA (PCR) Negative (Negative) 02/19/22 11:20 Random Vancomycin 17.7 mcg/ml (10-20) 02/20/22 05:29 Ur Butalbital Comment Cancelled 02/18/22 13:59 U Butalbital Confirm Cancelled 02/18/22 13:59 Urine Opiates Screen Neg (Neg) 02/17/22 Unknown Urine Opiates Screen Cancelled 02/18/22 13:59 Ur Opiates Comment Cancelled 02/18/22 13:59 Opiates Comments Cancelled 02/18/22 13:59 Urine Codeine (GC/MS) Cancelled 02/18/22 13:59 Urine Codeine Comment Cancelled 02/18/22 13:59 Ur Morphine Comment Cancelled 02/18/22 13:59 Ur Morphine Confirm Cancelled 02/18/22 13:59 U Hydrocodone Comment Cancelled 02/18/22 13:59 U Hydrocodone Confirm Cancelled 02/18/22 13:59 U Norhydrocodone Conf Cancelled 02/18/22 13:59 U Norhydrocodone Com Cancelled 02/18/22 13:59 Ur Oxycodone Screen Cancelled 02/18/22 13:59 U Noroxycodone Confirm Cancelled 02/18/22 13:59 Ur Noroxycodone Comment Cancelled 02/18/22 13:59 Ur Oxycodone GC/MS Cancelled 02/18/22 13:59 Ur Oxycodone Comment Cancelled 02/18/22 13:59 Ur Oxycodone Comment 2 Cancelled 02/18/22 13:59 U Oxymorphone GC/MS Cancelled 02/18/22 13:59 U Oxyco/Oxymorph Note Cancelled 02/18/22 13:59 U Oxymorphone Comment Cancelled 02/18/22 13:59 Ur EDDP (Meth Metab) Cancelled 02/18/22 13:59 U EDDP (Meth Met) Com Cancelled 02/18/22 13:59 Urine Methadone Screen Cancelled 02/18/22 13:59 Ur Methadone, Qual Neg (Neg) 02/17/22 Unknown Ur Methadone Comment Cancelled 02/18/22 13:59 Ur Methadone Comment 2 Cancelled 02/18/22 13:59 Ur Methadone Note Cancelled 02/18/22 13:59 Ur Methadone (GC/MS) Cancelled 02/18/22 13:59 U Hydromorphone (GC/MS) Cancelled 02/18/22 13:59 Ur Hydromorphone Cmmt Cancelled 02/18/22 13:59 Ur Barbiturates Screen Cancelled 02/18/22 13:59 Urine Barbiturates Neg (Neg) 02/17/22 Unknown Ur Barbiturate Comment Cancelled 02/18/22 13:59 Barbiturates Note Cancelled 02/18/22 13:59 Ur Phencyclidine Scrn Cancelled 02/18/22 13:59 Ur Phencyclidine (PCP) Neg (Neg) 02/17/22 Unknown Urine PCP Confirm Cancelled 02/18/22 13:59 U Phencyclidine (PCP) Comm Cancelled 02/18/22 13:59 U PCP Other Cancelled 02/18/22 13:59 Urine Phencyclidine (PCP) Note Cancelled 02/18/22 13:59 Ur Amphetamine Screen Cancelled 02/18/22 13:59 U Amphetamine (GC/MS) Cancelled 02/18/22 13:59 U Amphetamines Conf Cmt Cancelled 02/18/22 13:59 U Amphetamine Comment Cancelled 02/18/22 13:59 U Amphetamine Comment 2 Cancelled 02/18/22 13:59 U Amphetamin/Meth Scrn Neg (Neg) 02/17/22 Unknown Urine Methamphetamines Cancelled 02/18/22 13:59 Ur Methamphetamines Cmt Cancelled 02/18/22 13:59 MDMA (Ecstasy) Screen Neg (Neg) 02/17/22 Unknown Ur Amobarbital Comment Cancelled 02/18/22 13:59 Ur Amobarbital Confirm Cancelled 02/18/22 13:59 U Pentobarbital Comm Cancelled 02/18/22 13:59 U Pentobarbital Conf Cancelled 02/18/22 13:59 Ur Phenobarbital Cmmt Cancelled 02/18/22 13:59 U Phenobarbital Confirm Cancelled 02/18/22 13:59 U Secobarbital Comment Cancelled 02/18/22 13:59 U Secobarbital Confirm Cancelled 02/18/22 13:59 U a-Hydroxylprazolam Cm Cancelled 02/18/22 13:59 U [id number] GC/MS Cancelled 02/18/22 13:59 U Benzodiazepines Scrn Neg (Neg) 02/17/22 Unknown U Benzodiazepines Scrn Cancelled 02/18/22 13:59 U Benzodiazepine Cmmnt Cancelled 02/18/22 13:59 U Benzodiazepine Note Cancelled 02/18/22 13:59 7-Amino Clonazepam Cnf Cancelled 02/18/22 13:59 U 7-Amino Clonazepam Com Cancelled 02/18/22 13:59 Ur Nordiazepam GC/MS Cancelled 02/18/22 13:59 Ur Nordiazepam Comment Cancelled 02/18/22 13:59 U OH-ethylfluraz GC/MS Cancelled 02/18/22 13:59 U OH-ethylfluraz Com Cancelled 02/18/22 13:59 Ur Lorzepam Comment Cancelled 02/18/22 13:59 U Lorazepam Confirm Cancelled 02/18/22 13:59 Ur Oxazepam Comment Cancelled 02/18/22 13:59 Ur Oxazepam Confirm Cancelled 02/18/22 13:59 Ur Temazepam Comment Cancelled 02/18/22 13:59 Ur Temazepam Cnf GC/MS Cancelled 02/18/22 13:59 U a-Hydroxytriaz GC/MS Cancelled 02/18/22 13:59 U a-Hydroxytriazolam Cm Cancelled 02/18/22 13:59 U [id number] Com Cancelled 02/18/22 13:59 U OH-Midazolam Confirm Cancelled 02/18/22 13:59 Cocaine Comment Cancelled 02/18/22 13:59 Urine Cocaine Screen Cancelled 02/18/22 13:59 Urine Cocaine Confirm Cancelled 02/18/22 13:59 Ur Cocaine Metabolite Neg (Neg) 02/17/22 Unknown U Cocaine Metab Comment Cancelled 02/18/22 13:59 Urine Cocaine Confirmation Comment Cancelled 02/18/22 13:59 Cannabinoids Comment Cancelled 02/18/22 13:59 U Cannabinoids (GC/MS) Cancelled 02/18/22 13:59 U Cannabinoid Com Cancelled 02/18/22 13:59 U Marijuana (THC) Screen Neg (Neg) 02/17/22 Unknown U THC (Cannabinoids) Scn Cancelled 02/18/22 13:59 Ur Marijuana Note Cancelled 02/18/22 13:59 Abn Spec Valid Drug Scn Cancelled 02/18/22 13:59 Adulterants Ur Oxidants Cancelled 02/18/22 13:59 Heparin Depend Plt Ab 02/19/22 12:44 RPR Nonreactive (Nonreactive) 02/18/22 13:59 Adenovirus (PCR) DETECTED (NotDetected) A* 02/19/22 12:15 Anaplasma Smear See Comment 02/18/22 13:59 Babesia Smear See Comment 02/18/22 13:59 B. pertussis DNA (PCR) Not Detected (NotDetected) 02/19/22 12:15 B.parapertussis DNA PCR Not Detected (NotDetected) 02/19/22 12:15 Lyme Disease IgG Ab Negative (Negative) 02/18/22 13:59 Lyme Disease IgM Ab Negative (Negative) 02/18/22 13:59 C. pneumoniae DNA (PCR) Not Detected (NotDetected) 02/19/22 12:15 Coronavirus OC43 (PCR) Not Detected (NotDetected) 02/19/22 12:15 Coronavirus HKU1 (PCR) Not Detected (NotDetected) 02/19/22 12:15 Coronavirus 229E (PCR) Not Detected (NotDetected) 02/19/22 12:15 SARS-CoV-2 (PCR) Not Detected (NotDetected) 02/19/22 12:15 Coronavirus NL63 (PCR) Not Detected (NotDetected) 02/19/22 12:15 Hepatitis A IgM Ab NON-REACTIVE (NON-REACTIVE) 02/18/22 14:10 Hep Bs Antigen NON-REACTIVE (NON-REACTIVE) 02/18/22 14:10 Hep Bs Ag Confirmation TNP 02/18/22 14:10 Hep B Core IgM Ab NON-REACTIVE (NON-REACTIVE) 02/18/22 14:10 Hepatitis C Ab (EIA) NON-REACTIVE (NON-REACTIVE) 02/18/22 14:10 Hep C Ab Signal/Cutoff 0.00 (<1.00) 02/18/22 14:10 Human Metapneumovir PCR Not Detected (NotDetected) 02/19/22 12:15 Influenza Type A (PCR) Not Detected (NotDetected) 02/19/22 12:15 Influenza Type B (PCR) Not Detected (NotDetected) 02/19/22 12:15 M. pneumoniae (PCR) Not Detected (NotDetected) 02/19/22 12:15 Parainfluenza 1 (PCR) Not Detected (NotDetected) 02/19/22 12:15 Parainfluenza 2 (PCR) Not Detected (NotDetected) 02/19/22 12:15 Parainfluenza 3 (PCR) Not Detected (NotDetected) 02/19/22 12:15 Parainfluenza 4 (PCR) Not Detected (NotDetected) 02/19/22 12:15 RSV (PCR) Not Detected (NotDetected) 02/19/22 12:15 Entero/Rhino (PCR) Not Detected (NotDetected) 02/19/22 12:15 SARS-CoV-2, RNA, NAAT NEGATIVE (NEGATIVE) 02/17/22 Unknown Blood Type A Positive 02/19/22 12:44 Antibody Screen NEGATIVE 02/19/22 12:44 Crossmatch See Detail 02/19/22 12:[address] 02/17/22 13:25 CT SCAN OF THE CERVICAL SPINE CLINICAL HISTORY: Neck pain. Weakness. COMPARISON STUDY: CT of the neck dated 01/22/2022. TECHNIQUE: CT scan of the cervical spine is performed from the skull base to the upper thoracic spine. Images are reviewed in the axial, sagittal, and coronal planes. IV contrast was not administered for this examination. A dose lowering technique was utilized adhering to the principles of ALARA. FINDINGS: Skeletal structures: The skeletal structures appear osteopenic. There is no evidence of fracture or subluxation involving the cervical spine. Vertebral body height and alignment are maintained. There is straightening of the cervical lordosis. Tiny anterior osteophytes are noted in the lower cervical region. The odontoid process and lateral masses are intact. The atlantoaxial articulation is preserved noting mild productive degenerative change. The spinous processes appear intact. Intervertebral discs: The disc spaces appear maintained. Central canal: Grossly patent. Soft tissues: The prevertebral and paraspinous soft tissues are within normal limits. A right internal jugular central venous infusion port is in place. Calvarium: The visualized calvarium at the skull base appears intact. Brain parenchyma: Partially visualized brain parenchyma at the skull base is within normal limits. Sinuses and mastoids: The visualized paranasal sinuses are clear. There is a small left mastoid effusion. The right mastoid air cells are well pneumatized. Lung apices: Clear as visualized. IMPRESSION: No acute bony abnormality is seen involving the cervical spine. ACT 112: Negative or not required by law. Electronically signed by: Riaz Arguelles M.D. 02/17/2022 4:[address] 02/17/22 13:25 CT chest diagnostic w con CLINICAL HISTORY: pain, bcell lymphoma TECHNIQUE: Multidetector row helical CT of the chest was performed with intravenous contrast. Coronal and sagittal reformations were obtained. Automated dose lowering techniques and/or adjustment according to patient size were utilized for this exam. CT DOSE: 2020.00 mGy.cm Comparison: Comparison is made to chest radiograph 02/17/2022 FINDINGS: Lungs and pleura: Atelectasis versus scarring is seen in the dependent portions of the lungs. Heart and pericardium: Heart size is normal. No pericardial effusion. Vessels: The pulmonary trunk is enlarged measuring 33 mm. Within the limits of a nondedicated study, no large pulmonary embolus is seen. Mediastinum and milagros: Unremarkable. Chest wall and lower neck: A right port catheter is seen with its tip in satisfactory position. Abdomen: For findings below the diaphragm, please refer to CT of the abdomen dated the same. Bones: Degenerative changes of the thoracic spine. Old healed rib fractures are seen. A surgical screw is incidentally seen in the left scapula. IMPRESSION: No acute abnormalities are seen. No evidence of lymphadenopathy in this patient with history of B-cell lymphoma. Old healed fractures are seen without evidence of new fracture. ACT 112: Negative or not required by law. Electronically signed by: Yossi Jaffe M.D. 02/17/2022 4:02 PM Brain MRI 02/17/22 17:23 MR brain wo/w con CLINICAL HISTORY: altered mental status, metastatic b cell lymphoma. COMPARISON STUDY: CT brain from 02/17/2022 TECHNIQUE: Multiplanar multisequence images of the brain were performed before and after Gadavist, 7.8 mL of IV contrast. Diffusion weighted imaging and ADC mapping was also performed. FINDINGS: Extra-axial space: There is no evidence for a subdural hematoma, There are no extra-axial fluid collections. Ventricles and cisterns: The ventricles are mildly dilated bilaterally. There is no evidence for midline shift or mass effect. Parenchyma: On noncontrast images, there is no evidence for an acute hemorrhage or infarct. No acute diffusion abnormalities are noted on diffusion weighted imaging or ADC mapping. The finding seen on CT of the brain represents an old right occipital infarct. Old right frontal infarct is also present. There is mild cerebral cortical atrophy present. There is mild bright signal seen on T2 and FLAIR weighted sequences within the centrum semiovale and periventricular white matter characteristic of remote small vessel disease. The sulci and gyri appear normal without effacement. The midline structures are unremarkable. The posterior fossa structures appear normal. On postcontrast images, there is no evidence for enhancing mass lesion. Osseous structures: The paranasal sinuses are well aerated. The mastoid air cells are well aerated. Soft tissues: No focal soft tissue abnormalities are identified. IMPRESSION: 1. No acute intracranial abnormalities. 2. 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 3. Cerebral cortical atrophy and remote small vessel disease. 4. No enhancing mass lesions are identified. ACT 112: Negative or not required by law. Electronically signed by: John Ashton M.D. 02/18/2022 8:37 AM Hip/Pelvis X-Ray 02/18/22 13:34 XR hip ANY 2v w pelvis CLINICAL HISTORY: Bilateral hip pain. COMPARISON STUDY: Abdomen and pelvis CT 02/17/2022. FINDINGS: No fracture or dislocation within the pelvis or hips. The sacrum appears intact. Soft tissues are unremarkable. Mild osteoarthritis within the bilateral hips. IMPRESSION: 1. No fractures within the pelvis or hips. 2. Mild bilateral hip osteoarthritis. ACT 112: Negative or not required by law. Electronically signed by: Tramaine Hunt M.D. 02/18/2022 2:56 PM Chest X-Ray 02/19/22 09:37 XR chest 1V portable CLINICAL HISTORY: hypoxia TECHNIQUE: Single frontal radiograph of the chest was obtained. Comparison: Comparison is made to chest radiograph 02/17/2022 FINDINGS: A port catheter is seen. The cardiomediastinal silhouette is stable. Bilateral lower lung predominant airspace opacities are seen. No evidence of pleural effusion or pneumothorax. IMPRESSION: Bilateral lower lung predominant airspace opacities which may represent atelectasis, pneumonia, and/or aspiration. ACT 112: Negative or not required by law. Electronically signed by: Yossi Jaffe M.D. 02/19/2022 10:[address] 02/19/22 10:36 CT head/brain wo con CLINICAL HISTORY: Altered mental status COMPARISON STUDY: 02/18/2022 CT DOSE: TECHNIQUE: Standard CT of the Brain was performed without IV contrast. A dose lowering technique was utilized adhering to the principles of ALARA. FINDINGS: Extraaxial space: There is no evidence for subdural hematoma. There are no extra-axial fluid collections. Ventricles and cisterns: The ventricles are normal in size and configuration. There is no evidence for midline shift or mass effect. Parenchyma: There is no subarachnoid or intraparenchymal hemorrhage. There is no evidence for an acute infarct or cerebral edema. 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 Compared to the previous examination, there is again persistent hypodensity within the right occipital lobe with a peripheral, approximately 2 cm intermediate density focus best seen on image 14. This again could relate to an old infarct. Additional underlying lesion with surrounding vasogenic edema cannot be completely excluded. There are no gross mass lesions. No definite enhancing mass was demonstrated on the previous MRI. However, motion artifact w as present. Osseous structures: There is no evidence for an acute fracture. The visualized paranasal sinuses are clear. The mastoid air cells are clear bilaterally. Soft tissues: There is no evidence for focal soft tissue swelling. IMPRESSION: 1. Compared to the previous examination, there is no evidence for acute intracerebral pathology or significant interval change. 2. 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 3. Possible old right occipital infarct versus nonspecific underlying pathology. Again, follow-up MRI may be helpful for further evaluation. ACT 112: Negative or not required by law. Electronically signed by: John Ashton M.D. 02/19/2022 11:15 AM Abdomen/Pelvis CT 02/19/22 10:38 CT abd pelvis IV con only CLINICAL HISTORY: gi bleed, obtunded TECHNIQUE: Helical axial images of the abdomen and pelvis were obtained and displayed. Automated dose lowering techniques and/or adjustment according to patient size were utilized for this exam. This exam was performed with intravenous contrast. COMPARISON: Comparison is made to CT abdomen pelvis 02/17/2022 FINDINGS: Lower chest: For findings above the diaphragm, please see CT chest performed same day. Liver: Unremarkable. No focal lesions are seen. Gallbladder and biliary tree: Cholelithiasis is seen without evidence of cholecystitis. No intra- or extrahepatic biliary ductal dilation. Pancreas: Unremarkable, no focal lesions. Spleen: Postsurgical changes are seen along the splenic hilum. Adrenals: Unremarkable. Kidneys and ureters: Unremarkable. Bladder: Baez catheter is seen. Reproductive organs: Prostatomegaly is seen. Bowel: Unremarkable appearance of the bowel. The appendix is normal. Lymph nodes Retroperitoneal: Unremarkable. Pelvic: Unremarkable. Mesenteric: Unremarkable. Peritoneum: Redemonstration of a few residual peritoneal soft tissue nodules compatible with history of B-cell lymphoma which has been treated. Vessels: Unremarkable. Abdominal wall: Bilateral fat-containing inguinal hernias are seen. Partially visualized is a soft tissue mass measuring 96 x 44 mm in the region of the right anterior sixth and seventh ribs without underlying bony destruction. This is unchanged from prior exam. Bones: Degenerative changes in the visualized spine. IMPRESSION: 1. No acute abnormalities are seen. 2. Redemonstration of a soft tissue mass in the anterolateral lower chest/upper abdominal wall measuring 96 x 44 mm. This is new from 2020 and may represent a new focus of disease in patient with B-cell lymphoma on chemotherapy, abscess is considered less likely. Correlation with physical exam, outside imaging, if available, and oncologic history is recommended. ACT 112: Negative or not required by law. Electronically signed by: Yossi Jaffe M.D. 02/19/2022 11:17 AM Chest CTA 02/19/22 10:44 CT angio chest PE protocol CLINICAL HISTORY: PE TECHNIQUE: Multidetector row helical CT of the chest was performed with angiographic protocol. Coronal and sagittal reformations were obtained. Coronal and sagittal MIPS were obtained from the axial data set and were submitted for [employer]. Automated dose lowering techniques and/or adjustment according to patient size were utilized for this exam. CT DOSE: 1967.70 mGy.cm Comparison: Comparison is made to CT chest 02/17/2022 FINDINGS: Lungs and pleura: Interval worsening of dependent atelectasis. Multifocal groundglass and consolidative opacities are new from prior exam. Endotracheal tube is in satisfactory position. Heart and pericardium: Heart size is normal. No pericardial effusion. Vessels: No evidence of pulmonary embolism. Prominence of the pulmonary trunk is again seen. Mediastinum and milagros: Unremarkable. Chest wall and lower neck: Unremarkable. Abdomen: For findings below the diaphragm, please refer to CT of the abdomen dated the same. Bones: Degenerative changes of the thoracic spine. Old healed rib fractures are seen. IMPRESSION: 1. No evidence of pulmonary embolism. 2. Interval development of multifocal groundglass and consolidative opacities compatible with pneumonia. 3. Worsening atelectasis in the lower lobes. Superimposed pneumonia cannot be entirely excluded. ACT 112: Negative or not required by law. Electronically signed by: Yossi Jaffe M.D. 02/19/2022 11:22 AM Hospital Course (1) Acute metabolic encephalopathy: (2) Thrombocytopenia: (3) Lymphoma: (4) Hypoxia: (5) Immunocompromised: (6) Adenoviral bronchopneumonia: (7) Aspiration pneumonia: (8) Anemia: (9) Pancytopenia: Plan Acute metabolic encephalopathy- Unclear etiology but remains unresponsive to v erbal or noxious stimuli despite being off of sedation and despite being on empiric antibiotics -Workup so far (MRI brain, CT head, CBC and BMP, UA, UDS, ammonia, tick panel unrevealing). Blood clx negative. Repeat CT head negative. - Respiratory biofire positive only for adenovirus - EEG 02/19 and 02/20 with no epileptiform activity but abnormal with altered mentation due to severe generalized background slowing suggestive of severe nonspecific encephalopathy - S/p urgent intubation 02/19 for airway protection and transferred to ICU- PanCT with suspected aspiration PNA but otherwise no source of infection- does have concerning finding for metastatic deposit from lymphoma to abdominal wall - Seen by neuro- recommended supportive management - Se[facility] Dickerson- overall extremely poor prognosis given CAD DETAILER lymphoma- encephalopathy could be due to this and may need repeat Brain MRI and spinal tap with cytology to assess for lymphoma - Being managed by dairy truck driver here who recommended transfer to [facility] for continuous EEG and possible plasmapheresis/IVIG- Spoke with Dr Luu from [facility] who accepted the patient- patient will be airlifted as he is on mechanical ventilation. Also requested division order technician to upload all images to [facility] for [facility] to review. 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 Patient sees Dr Atkins who I spoke to yesterday morning regarding overall plan of care. Unclear but his lymphoma and chemo possibly contributing to his encephalopathy. - Seen by [facility] Dr Dickerson 02/20- overall extremely poor prognosis given CAD DETAILER lymphoma- encephalopathy could be due to this and may need repeat Brain MRI and spinal tap with cytology to assess for lymphoma Pancytopenia - DIC work up negative, Work up suggests hemolysis - Seen by [facility] Dr Dickerson- Recommended Plt transfusion for Plt count <15K, PRBC transfusion for Hb <8 and GCSF if ANC<500 - S/p 1 U PRBC transfusion 02/20 and multiple plt transfusion 02/19- Thrombocytopenia- eliquis remains on hold -worsening 43->23->21->14->12->41->50; likely from recent chemo - Eliquis on hold - S/p platelet transfusion and now plt up to 41 IJ thrombosis 01/22- Was on eliquis but on hold due to thrombocytopenia- resume anticoag when able Sinus Tachycardia- improved, on iv lopressor Hematuria- likely traumatic from baez placement. Monitor. DVT ppx- SCDs for now, anticoagulation on hold due to thrombocytopenia and anemia requiring transfusions Dispo- Transfer to [facility] per dairy truck driver recommendation for further work up and management- Spoke with Dr Luu who accepted the patient under his service. Update- Spoke to the primary contact sister Roseanna regarding transfer to [facility]- she agrees Full code Total Time Total Time Spent Total Time Spent (In Minutes): 60 Discharge Plan Discharge Items Reason For Visit: ALTERED MENTAL STATUS Follow-up/Referrals: Nolberto Nuno MD [Primary Care Provider] - Medications and DC Order Prescriptions: No Action multivitamin Tablet 1 tab PO QAM levetiracetam 500 mg tablet 500 mg PO BID olanzapine 10 mg tablet 10 mg PO HS acyclovir 400 mg tablet 400 mg PO BID famotidine 20 mg tablet 20 mg PO BID tamsulosin 0.4 mg capsule 0.4 mg PO QAM dexamethasone 4 mg tablet 4 mg PO DAILY allopurinol 300 mg tablet 300 mg PO QAM lorazepam 1 mg tablet 1 mg sublingual TID PRN (Reason: Anxiety) Eliquis 5 mg (74 tabs) tablets,dose pack 5 mg PO BID Qty: 74 0RF Rx Instructions: 10 mg twice a day for 7 days, then 5 mg twice a day after that. oxycodone 5 mg capsule 5 - 10 mg PO Q6H PRN (Reason: Pain) gabapentin 300 mg capsule 300 mg PO HS calcium carbonate 500 mg calcium (1,250 mg) Tablet,Chewable 500 mg PO BID PRN (Reason: heartburn) Admission Data Admit Date/Time: 02/17/22 16:45 Attending Provider: Cr Fernandez Admit Provider: Cr Fernandez Primary Care Provider: Nolberto Nuno Other Providers: Cr Fernandez ; Lakeisha Lucio ; Chan Schreiber ; Luz Elena Dickerson ; Иван Garrido ; Cristela Shore ; Prince Burgos I. ; Chris Villa II ; Simona Saucedo ; Milton More ; Leonidas Still ; Talya Quiroga
--- NOTE | 2022-02-20 18:30 | Hospitalist Progress Note ---
Date of Service February 20, 2022 Assessment & Plan (1) Acute metabolic encephalopathy: (2) Thrombocytopenia: (3) Lymphoma: (4) Hypoxia: (5) Immunocompromised: (6) Adenoviral bronchopneumonia: (7) Aspiration pneumonia: (8) Anemia: (9) Pancytopenia: Plan Acute metabolic encephalopathy- Unclear etiology but remains unresponsive to verbal or noxious stimuli despite being off of sedation and despite being on empiric antibiotics -Workup so far (MRI brain, CT head, CBC and BMP, UA, UDS, ammonia, tick panel unrevealing). Blood clx negative. Repeat CT head negative. 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 Also requested lift team technician to upload all images to [facility] for [facility] to review. 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 Patient sees Dr Atkins who I spoke to yesterday morning regarding overall plan of care. Unclear but his lymphoma and chemo possibly contributing to his encephalopathy. 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 lymphoma- encephalopathy could be due to this and may need repeat Brain MRI and spinal tap with cytology to assess for lymphoma Pancytopenia - DIC work up negative, Work up suggests hemolysis - Seen by [facility] Dickerson- Recommended Plt transfusion for Plt count <15K, PRBC transfusion for Hb <8 and GCSF if ANC<500 - S/p 1 U PRBC transfusion 02/20 and multiple plt transfusion 02/19- Thrombocytopenia- eliquis remains on hold -worsening 43->23->21->14->12->41->50; likely from recent chemo - Eliquis on hold - S/p platelet transfusion and now plt up to 41 IJ thrombosis 01/22- Was on eliquis but on hold due to thrombocytopenia- resume anticoag when able Sinus Tachycardia- improved, on iv lopressor Hematuria- likely traumatic from baez placement. Monitor. DVT ppx- SCDs for now, anticoagulation on hold due to thrombocytopenia and anemia requiring transfusions Dispo- Transfer to [facility] per television director recommendation for further work up and management- Spoke with Dr Luu who accepted the patient under his service. Update- Spoke to the primary contact sister Roseanna regarding transfer to [facility]- she agrees Full code Admission and Anticipated Discharge Date Admission Date: February 17, 2022 Subjective Unresponsive, intubated. No fever. ROS limited due to unresponsiveness. Physical Exam Physical Exam: General: Unresponsive despite being off of sedation, intubated and on mechanical ventilation HEENT: PERRL, no nystagmus, no icterus Chest: diminished breath sounds anteriorly CVS: tachycardia, normal heart sounds, no murmur Abdomen: Soft, mildly distended, + bowel sounds Neuro: Unresponsive to verbal or noxious stimuli, not following any commands Extremities: No edema Results & Data Results & Data ([facility]) Vital Signs (Past 12 Hours) Vital Signs Temp Pulse Pulse Resp BP BP BP 02/20/22 18:21 37.1 C 98 H 16 110/72 130/98 02/20/22 18:00 37.1 C 02/20/22 17:45 37.1 C 88 16 02/20/22 17:45 138/101 H 02/20/22 17:40 137/101 H 02/20/22 17:40 37.1 C 93 H 18 02/20/22 17:39 131/103 H 02/20/22 17:39 37.1 C 95 H 16 02/20/22 17:38 136/102 H 02/20/22 17:38 37.1 C 92 H 19 02/20/22 17:37 140/99 02/20/22 17:37 37.1 C 95 H 18 02/20/22 17:36 138/106 H 02/20/22 17:36 37.1 C 93 H 17 02/20/22 17:35 131/102 H 02/20/22 17:35 37.1 C 92 H 18 02/20/22 17:34 134/99 02/20/22 17:34 37.1 C 93 H 20 02/20/22 17:30 37.1 C 92 H 16 02/20/22 17:30 141/101 H 02/20/22 17:00 37.1 C 94 H 02/20/22 17:00 138/100 02/20/22 16:30 37.0 C 99 H 21 02/20/22 16:30 138/97 02/20/22 16:00 37.0 C 91 H 18 02/20/22 16:00 140/103 H 02/20/22 15:30 37.0 C 90 21 02/20/22 15:30 137/102 H 02/20/22 15:00 37.0 C 91 H 18 02/20/22 15:00 133/101 H 02/20/22 14:30 36.9 C 88 02/20/22 14:30 140/98 02/20/22 14:15 124/100 02/20/22 14:15 36.9 C 88 02/20/22 16:00 02/20/22 15:16 94 H 02/20/22 14:18 36.9 C 89 16 124/100 02/20/22 14:02 36.9 C 86 16 135/93 02/20/22 14:00 36.9 C 89 20 02/20/22 14:00 135/93 02/20/22 13:45 133/95 02/20/22 13:45 36.9 C 90 17 02/20/22 13:30 36.8 C 88 17 02/20/22 13:30 138/98 02/20/22 13:15 138/96 02/20/22 13:15 36.7 C 90 20 02/20/22 13:00 36.7 C 100 H 20 02/20/22 13:00 130/96 02/20/22 12:45 116/82 02/20/22 12:45 36.8 C 93 H 16 02/20/22 12:30 36.8 C 89 17 02/20/22 12:30 132/86 02/20/22 12:15 36.8 C 89 15 02/20/22 12:15 119/89 02/20/22 12:00 36.7 C 103 H 22 02/20/22 12:00 122/92 02/20/22 11:45 126/91 02/20/22 11:45 36.7 C 94 H 17 02/20/22 11:30 36.8 C 97 H 24 02/20/22 11:30 131/92 02/20/22 11:15 36.8 C 101 H 22 02/20/22 11:15 129/93 02/20/22 13:02 36.9 C 90 21 133/95 02/20/22 12:32 36.8 C 92 H 16 132/82 02/20/22 12:17 37.0 C 95 H 15 132/86 02/20/22 11:45 36.7 C 94 H 16 122/82 02/20/22 12:00 02/20/22 12:01 36.7 C 98 H 20 122/87 02/20/22 11:23 37.1 C 87 20 131/92 02/20/22 11:23 98 H 23 02/20/22 11:00 36.8 C 103 H 25 H 02/20/22 11:00 133/96 02/20/22 10:45 131/93 02/20/22 10:45 36.8 C 98 H 21 02/20/22 10:30 36.9 C 116 H 18 02/20/22 10:30 121/91 02/20/22 10:00 36.9 C 97 H 17 02/20/22 10:00 127/87 02/20/22 09:30 36.9 C 96 H 18 02/20/22 09:30 125/89 02/20/22 09:00 36.9 C 98 H 19 02/20/22 09:00 127/88 02/20/22 08:30 36.9 C 104 H 19 02/20/22 08:30 132/97 02/20/22 08:00 37.0 C 98 H 18 02/20/22 08:00 126/92 02/20/22 07:30 37.0 C 103 H 19 02/20/22 07:30 122/92 02/20/22 07:14 37.0 C 101 H 20 02/20/22 07:14 118/93 02/20/22 07:00 36.9 C 104 H 20 02/20/22 07:00 130/98 02/20/22 06:30 36.9 C 103 H 17 02/20/22 10:53 36.8 C 102 H 20 131/93 02/20/22 08:00 99 H 02/20/22 08:00 02/20/22 08:00 02/20/22 08:00 02/20/22 10:38 36.9 C 99 H 20 121/91 02/20/22 07:00 37.1 C 98 H 14 130/98 02/20/22 10:22 36.7 C 94 H 18 127/82 02/20/22 07:13 112 H 21 Pulse Ox Pulse Ox O2 Del Method O2 Del Method FiO2 02/20/22 18:21 97 02/20/22 18:00 02/20/22 17:45 97 02/20/22 17:45 02/20/22 17:40 02/20/22 17:40 98 02/20/22 17:39 02/20/22 17:39 98 02/20/22 17:38 02/20/22 17:38 98 02/20/22 17:37 02/20/22 17:37 98 02/20/22 17:36 02/20/22 17:36 98 02/20/22 17:35 02/20/22 17:35 98 02/20/22 17:34 02/20/22 17:34 98 02/20/22 17:30 98 02/20/22 17:30 02/20/22 17:00 95 02/20/22 17:00 02/20/22 16:30 97 02/20/22 16:30 02/20/22 16:00 97 02/20/22 16:00 02/20/22 15:30 97 02/20/22 15:30 02/20/22 15:00 98 02/20/22 15:00 02/20/22 14:30 97 02/20/22 14:30 02/20/22 14:15 02/20/22 14:15 97 02/20/22 16:00 30 02/20/22 15:16 96 30 02/20/22 14:18 98 02/20/22 14:02 97 02/20/22 14:00 97 02/20/22 14:00 02/20/22 13:45 02/20/22 13:45 97 02/20/22 13:30 97 02/20/22 13:30 02/20/22 13:15 02/20/22 13:15 96 02/20/22 13:00 96 02/20/22 13:00 02/20/22 12:45 02/20/22 12:45 98 02/20/22 12:30 97 02/20/22 12:30 02/20/22 12:15 96 02/20/22 12:15 02/20/22 12:00 96 02/20/22 12:00 02/20/22 11:45 02/20/22 11:45 96 02/20/22 11:30 96 02/20/22 11:30 02/20/22 11:15 95 02/20/22 11:15 02/20/22 13:02 97 02/20/22 12:32 97 02/20/22 12:17 98 02/20/22 11:45 96 02/20/22 12:00 30 02/20/22 12:01 98 02/20/22 11:23 98 02/20/22 11:23 96 30 02/20/22 11:00 95 02/20/22 11:00 02/20/22 10:45 02/20/22 10:45 96 02/20/22 10:30 96 02/20/22 10:30 02/20/22 10:00 94 02/20/22 10:00 02/20/22 09:30 96 02/20/22 09:30 02/20/22 09:00 97 02/20/22 09:00 02/20/22 08:30 98 02/20/22 08:30 02/20/22 08:00 97 0721/22 08:00 02/20/22 07:30 97 02/20/22 07:30 02/20/22 07:14 97 02/20/22 07:14 02/20/22 07:00 97 02/20/22 07:00 02/20/22 06:30 97 02/20/22 10:53 93 02/20/22 08:00 02/20/22 08:00 Mechanical Vent 02/20/22 08:00 96 Mechanical Vent 02/20/22 08:00 30 02/20/22 10:38 96 02/20/22 07:00 98 Mechanical Vent 30 02/20/22 10:22 94 02/20/22 07:13 94 30
[2022-02-20 22:22] LABS: 1-Hydroxymidazolam Ur GC/MS NEGATIVE ng/mL (<50); 7-Aminoclonazepam Ur GC/MS NEGATIVE ng/mL (<25); Amphetamine Comment DNR; Amphetamines, Ur NEGATIVE ng/mL (<500); Amphetemines Ur GC/MS DNR ng/mL (<250); Barbiturates Comment DNR; Barbiturates, Urine NEGATIVE ng/mL (<300); Benzodiazepines,Ur POSITIVE ng/mL (<100); Benzoylecgonine Ur GC/MS DNR ng/mL (<100); Cocaine Comment DNR; EDDP UrINE DNR ng/mL (<100); Hydroxyethylflurazepam Ur GCMS NEGATIVE ng/mL (<50); Med Match Amphetamine Comment DNR; Med Match Benzodiazep Comment DNR; Med Match Cocaine Comment DNR; Med Match Methadone Comment DNR; Med Match Noroxycodone Comment DNR; Med Match Opiate Comment DNR; Med Match Oxycodone Comment DNR; Med Match Oxymorphone Comment DNR; Med Match PCP Confirm Comment DNR; Med Match THC Comment DNR; MedMatch Alphahydroxalpra Comm DNR; MedMatch Alphahydroxytriaz Com DNR; MedMatch Aminoclonazep Ver Com DNR; MedMatch Amobarbital Comment DNR; MedMatch Amphet Verif Comment DNR; MedMatch Barbiturate Comment DNR; MedMatch Butalbital Comment DNR; MedMatch Cocaine Verif Comment DNR; MedMatch Codeine Verif Comment DNR; MedMatch EDDP Verif Comment DNR; MedMatch Hydrocod Ver Comment DNR; MedMatch Hydromorphone Ver Com DNR; MedMatch Hydroxymidaz Ver Comm DNR; MedMatch Lorazepam Comment DNR; MedMatch Metamph Verif Comment DNR; MedMatch Methad Verif Comment DNR; MedMatch Morpine Verif Comment DNR; MedMatch Nordiazepam Comment DNR; MedMatch Norhydrocodone VerCom DNR; MedMatch OH Etflurazep VerCom DNR; MedMatch Oxazepam Comment DNR; MedMatch Oxycodone Ver Com DNR; MedMatch Pentobarbital Comment DNR; MedMatch Phencyclidine Comment DNR; MedMatch Phenobarbital Comment DNR; MedMatch Secobarbital Comment DNR; MedMatch THC Verif Comment DNR; MedMatch Temazepam Comment DNR; Methadone Comment DNR; Methadone Ur GC/MS DNR ng/mL (<100); Oxycodone, Ur POSITIVE ng/mL (<100); Phencyclidine Comment DNR; Phencyclidine, Ur NEGATIVE ng/mL (<25); Tetrahydrocannabinol Ur GC/MS 21 ng/mL (<5); Urine Creatinine 111.5 mg/dL (> or = 20.0); Urine Specific Gravity DNR (> or = 1.003); Urine pH 5.6 (4.5-9.0)
[2022-02-22 07:55] LABS: Babesia microti DNA Not Detected (Not Detected)
[2022-02-23 03:52] LABS: Cryptococcal Antigen Not Detected (Not Detected); Source Serum
[2022-02-24 15:31] LABS: Ehrlichia chaff DNA Bld Negative (Negative)
== END 2022-02-20 18:23 | disposition short-term general hospital (02) | DRG 840 ==
LOC: ED 12:54 → 2E 16:45 → SUATTDRO 16:45 → 2E 17:04 → 1E 02-19 11:13